=== PATIENT | male | born 1990 | race Caucasian/White ===

== ENCOUNTER 2017-01-21 08:45 | Day surgery (SDC) | payer OTHER ==
[2017-01-21] MEDS ORDERED: XYLOCAINE 1% ONE (09:45)
[2017-01-21] MEDS ORDERED: MARCAINE 0.25% PF/EPI 1:200,000 ONE (09:45)
[2017-01-21] MEDS ORDERED: LR 1,000 ML ONE (09:46)
[2017-01-21 11:35] VITALS: BP 99/68
--- NOTE | 2017-02-02 11:49 | OPERATIVE NOTE ---
PROCEDURE DATE: 01/21/2017 DIAGNOSIS: Cerebral palsy with recent infection. PROCEDURE PERFORMED: Left-sided Mccauley removal. DESCRIPTION OF PROCEDURE: The patient has brought to the operating room. After satisfactory IV sedation and hooking up his tracheostomy, his left chest was prepped and draped in the appropriate manner. The Mccauley was removed without difficulty and intact. He tolerated the procedure well. Sterile dressing was applied and he was awakened in the operating room.
== END 2017-01-21 11:45 | disposition home or self-care (01) ==
LOC: OR 08:45
PROVIDERS: ATTEND Surgery
DX: Z45.2 Encounter for adjustment and management of vascular access device (principal); G80.1 Spastic diplegic cerebral palsy; K21.9 Gastro-esophageal reflux disease without esophagitis
CPT/HCPCS: J7120

== ENCOUNTER 2017-03-19 18:00 | Observation (INO) ==
[2017-03-19 19:37] LABS: BILIRUBIN URINE NEGATIVE (NEGATIVE); BLOOD URINE 4+ (NEGATIVE); CLARITY MUCOUS (CLEAR); COLOR YELLOW; GLUCOSE URINE NEGATIVE (NEGATIVE); LEUKOCYTES URINE 2+ (NEGATIVE); NITRITE URINE NEGATIVE (NEGATIVE); PROTEIN URINE 2+(100 mg/dL) mg/dL (NEGATIVE); SP GRAVITY URINE 1.015; URINE CULTURE PL NEEDED? YES; URINE EPITHELIAL CELLS <10 /HPF (<10); URINE RBC TNTC /HPF (<10); URINE SOURCE CLEAN CATCH; URINE WBC TNTC /HPF (<10); UROBILINOGEN URINE NORMAL
[2017-03-19 19:40] LABS: MANUAL DIFF NEEDED? NO
[2017-03-19 19:43] LABS: BASO% 0.3 % (0.0-0.8); EOS# 0.04 X1000 (0.0-0.7); EOS% 0.2 % (0.0-10.0); HEMATOCRIT 44.3 % (42.0-52.0); HEMOGLOBIN 15.3 g/dL (14.0-18.0); IMM GRAN# 0.04 X1000 (0.0-0.04); IMM GRAN% 0.2 % (0.0-0.5); LYMPH# 1.62 X1000 (1.2-3.4); LYMPH% 8.3 % (20.5-51.1); MCH 30.4 PG (27-31); MCHC 34.5 g/dL (33-37); MCV 88.1 FL (81-99); MONO# 1.51 X1000 (0.11-0.59); MONO% 7.8 % (1.7-9.3); MPV 8.9 FL (7.4-10.4); NEUT% 83.2 % (42.2-75.2); PLT 263 X1000 (130-400); RBC 5.03 XMIL (4.7-6.1)
[2017-03-19] MEDS ORDERED: ZOSYN 4.5 GM/NS 4.5 GM/100 ML IVPB IV ONE (19:55)
[2017-03-19 20:00] LABS: AGAP 15; BUN 14 mg/dL (8-22); CALCIUM 9.2 mg/dL (8.8-10.2); CHLORIDE 101 mmol/L (98-107); COSMO 277; POTASSIUM 3.1 mmol/L (3.5-5.1); SODIUM 138 mmol/L (136-145); TCO2 22 mmol/L (25-35)
[2017-03-19] MEDS ORDERED: NS 1,000 ML IV ONE (20:03)
--- NOTE | 2017-03-20 02:22 | Diag Imaging Result Document ---
PROCEDURE NAME: CHEST-1 VIEW - 03/19/2017 PORTABLE CHEST: COMPARISON: 01/03/2015. FINDINGS: There is a tracheostomy tube which appears to be in satisfactory position. Heart size is normal. Inspiration is mildly shallow. The lungs appear clear. There is no pleural effusion or pneumothorax identified. There is gaseous bowel distention noted in the upper abdomen similar to the previous exam and possibly representing longstanding change. IMPRESSION: 1. Mildly shallow inspiration. No other evidence of acute cardiopulmonary disease. 2. There is gaseous bowel distention noted in the upper abdomen similar to the previous exam and possibly representing chronic change.
[2017-03-20] MEDS: ZOSYN 4.5 GM/NS 4.5 GM/100 ML IVPB IV SCH ×4 (02:33→22:03)
[2017-03-20] MEDS: TYLENOL PO PRN ×2 (03:49→13:02)
[2017-03-20 10:49] LABS: MANUAL DIFF NEEDED? NO
[2017-03-20 10:51] LABS: BASO% 0.3 % (0.0-0.8); EOS# 0.26 X1000 (0.0-0.7); EOS% 1.9 % (0.0-10.0); HEMATOCRIT 42.7 % (42.0-52.0); HEMOGLOBIN 14.2 g/dL (14.0-18.0); IMM GRAN# 0.01 X1000 (0.0-0.04); IMM GRAN% 0.1 % (0.0-0.5); LYMPH% 8.8 % (20.5-51.1); MCH 29.9 PG (27-31); MCHC 33.3 g/dL (33-37); MCV 89.9 FL (81-99); MONO# 1.16 X1000 (0.11-0.59); MONO% 8.5 % (1.7-9.3); MPV 8.6 FL (7.4-10.4); NEUT% 80.4 % (42.2-75.2); PLT 236 X1000 (130-400); RBC 4.75 XMIL (4.7-6.1)
[2017-03-20] MEDS: KLONOPIN PO SCH ×2 (11:05→22:04)
[2017-03-20] MEDS: LAMICTAL PO SCH ×2 (11:05→22:04)
[2017-03-20] MEDS: NEURONTIN PO SCH ×2 (11:05→22:04)
[2017-03-20] MEDS: MIRALAX PO SCH (11:05)
[2017-03-20] MEDS: ALLEGRA PO SCH (11:05)
[2017-03-20] MEDS: NS 1,000 ML IV SCH ×2 (11:06→22:05)
[2017-03-20 11:17] LABS: AGAP 13; BUN 13 mg/dL (8-22); CALCIUM 8.3 mg/dL (8.8-10.2); CHLORIDE 107 mmol/L (98-107); COSMO 281; POTASSIUM 4.1 mmol/L (3.5-5.1); SODIUM 141 mmol/L (136-145); TCO2 22 mmol/L (25-35)
[2017-03-20] MEDS: LIORESAL PO SCH ×3 (11:33→19:09)
--- NOTE | 2017-03-20 12:21 | HISTORY AND PHYSICAL ---
PRIMARY CARE PHYSICIAN: Dr. Pettit. CHIEF COMPLAINT: Fever. HISTORY OF PRESENTING ILLNESS: This is a 26-year-old male with a history of cerebral palsy, who has a suprapubic catheter and a trach, presents to [facility] ER. When he was found at home after returning home from school by the home health nurse to feel warm, she did an axillary temp and it was 102. Gave two ibuprofen and rechecked his axillary temp approximately 40 minutes later and stated his temp had actually gone up to 102.5. He then went to [facility] walk-in clinic, he was tested for strep and flu, and both were reported to be negative. He was advised by the walk-in clinic to come to the ER for blood work. When he arrived, his catheter bag was changed and his urine was noted to have a strong odor of sulfa. Workup showed a white blood cell count of 19.44, a potassium of 3.1. Urinalysis had negative nitrites, but 2+ white blood cells and 4+ bacteria. Urine culture is pending and he has been admitted for further evaluation and treatment. PAST MEDICAL HISTORY: Seizure disorder, spastic cerebral palsy, GERD and kidney stones. PAST SURGICAL HISTORY: Scoliosis, rods, a suprapubic cath, a trach, lithotripsy and fundoplication. FAMILY HISTORY: Noncontributory. SOCIAL HISTORY: He lives with family. No tobacco, alcohol or illicit drug use. ALLERGIES: Latex. HOME MEDICATIONS: He takes albuterol nebs q. 4 hours p.r.n., Baclofen 40 mg p.o. t.i.d., Klonopin 0.5 mg p.o. daily and 1 mg p.o. at bedtime, Jessie 180 mg p.o. b.i.d. , gabapentin 100 mg p.o. daily and 300 mg p.o. at bedtime, Lamictal 100 mg p.o. daily and 150 mg p.o. at bedtime, and MiraLAX 17 g p.o. daily. LABORATORY DATA: Showed a white blood cell count of 19.44, hemoglobin 15.3, hematocrit 44.3, platelets 263. Sodium 138, potassium 3.1, chloride 101, CO2 22, BUN of 14, creatinine 0.8, glucose 111. Urinalysis showed negative nitrites, 2+ white blood cells, 4+ bacteria. Blood cultures x2 are pending and a urine culture is pending. DIAGNOSTIC DATA: Chest x-ray showed shallow inspiration, but no other evidence of acute cardiopulmonary disease. There was some gaseous bowel distention noted in the upper abdomen similar to a previous exam and possibly representing chronic change. REVIEW OF SYSTEMS: Unable to obtain as patient is nonverbal. PHYSICAL EXAMINATION: VITAL SIGNS: On arrival, he had a temperature of 99.6 degrees, a pulse of 118, respirations 20, blood pressure 120/76, satting 100% on room air. GENERAL: This is a 26-year-old male, who is lying in the bed, unable to answer questions as he is nonverbal secondary to his cerebral palsy. Family at bedside to help answer questions and reviewed ER records also. HEENT: Normocephalic and atraumatic. Pupils are equal, round and reactive to light. The extraocular movements appear intact. Oropharynx and nares are clear. NECK: Supple. Patient has trach covered by gauze at this time. LUNGS: Clear to auscultation bilaterally with equal lung expansion and chest wall movement. HEART: With regular rate and rhythm. No murmurs, rubs, or gallops. ABDOMEN: Soft, nontender, nondistended. Bowel sounds are present x4 quadrants. EXTREMITIES: Patient has contractures to upper extremities and lower extremities. No clubbing, cyanosis, or edema. NEUROLOGICAL: Unable to assess due to patient's cerebral palsy at this time. ASSESSMENT: 1. Urinary tract infection. 2. Leukocytosis. 3. Hypokalemia. 4. Seizure disorder. 5. History of spastic cerebral palsy. PLAN: He was admitted to the medical unit at [place]. Neuro checks q. 4 hours for 24 hours. He was placed on Zosyn 4.5 g IV q. 6, normal saline at 100 mL an hour. We will continue his home medications as previously identified. Recheck a CBC and a BMP this a.m. It is noted that the patient's family (mom) if possible would like the patient to be discharged home later today on IV antibiotics if possible. We will discuss this with the attending as we do not have a culture back at this moment, and will recheck the white blood cell count. If it is improving , that could possibly be an option as patient has had multiple home IV antibiotic therapies in the past due to having UTIs related to his suprapubic catheter. Dictated by MOIRA Finch for Zander Murillo MD cc: MOIRA Patel MD pt examined, likely sepsis associated with uti; will continue to follow closely , will need to decide about Iv abx based on sensitivities and may need further imaging to rule out urolithiasis APENOT MTDD
[2017-03-20] MEDS ORDERED: LIORESAL PO SCH (13:00)
[2017-03-20] MEDS ORDERED: GENTAMICIN IV PER PHARMACY MISC SCH (14:15)
[2017-03-20] MEDS: GENTAMICIN IV SCH (15:24)
[2017-03-20] MEDS: NS IV SCH (15:24)
[2017-03-21] MEDS: ZOSYN 4.5 GM/NS 4.5 GM/100 ML IVPB IV SCH ×2 (02:54→08:45)
[2017-03-21 07:12] LABS: HEMATOCRIT 37.5 % (42.0-52.0); HEMOGLOBIN 12.5 g/dL (14.0-18.0); MCH 30.3 PG (27-31); MCHC 33.3 g/dL (33-37); MPV 8.9 FL (7.4-10.4); RBC 4.12 XMIL (4.7-6.1)
[2017-03-21 07:39] LABS: AGAP 10; BUN 11 mg/dL (8-22); CALCIUM 8.4 mg/dL (8.8-10.2); CHLORIDE 105 mmol/L (98-107); COSMO 270; MAGNESIUM 1.8 mg/dL (1.5-2.7); POTASSIUM 4.3 mmol/L (3.5-5.1); SODIUM 136 mmol/L (136-145); TCO2 21 mmol/L (25-35)
[2017-03-21] MEDS: MIRALAX PO SCH (08:44)
[2017-03-21] MEDS: KLONOPIN PO SCH ×2 (08:44→21:12)
[2017-03-21] MEDS: LAMICTAL PO SCH ×2 (08:45→21:11)
[2017-03-21] MEDS: LIORESAL PO SCH ×3 (08:45→17:38)
[2017-03-21] MEDS: ALLEGRA PO SCH (08:45)
[2017-03-21] MEDS: NEURONTIN PO SCH ×2 (08:45→21:11)
[2017-03-21] MEDS ORDERED: FLEET ENEMA PR ONE (14:20)
[2017-03-21] MEDS: ZOSYN 3.375 GM/NS 3.375 GM/50 ML IVPB IV SCH ×2 (14:53→21:11)
[2017-03-21] MEDS: NS IV SCH (15:29)
[2017-03-21] MEDS: GENTAMICIN IV SCH (15:29)
--- NOTE | 2017-03-21 16:20 | PROGRESS NOTE ---
DATE: 03/21/2017 SUBJECTIVE: Patient has no focal complaints. OBJECTIVE: Vital signs: Blood pressure 108/63, heart rate of 82, respiratory rate 18, temperature 98 degrees, 98% on room air. Cardiovascular: Regular rate and rhythm. Pulmonary: Bilateral breath sounds. Clear to auscultation. GI: Soft, nontender, nondistended. Bowel sounds are positive. LABORATORY DATA: White count down to 7, hemoglobin and hematocrit 12 and 37. Electrolytes are stable. Micro. He has got gram-negative rods in his urine culture. PROBLEMS: 1. Urinary tract infection, cystitis. He is on Zosyn day 3 and gentamicin day 2 awaiting culture results. 2. Seizure disorder. Appears to be controlled. DISPOSITION: Possibly home tomorrow pending culture results. He may need home IV therapy. We will evaluate for that. cc: Zander Murillo MD
[2017-03-22] MEDS: ZOSYN 3.375 GM/NS 3.375 GM/50 ML IVPB IV SCH ×2 (03:23→08:56)
[2017-03-22 06:04] LABS: MCH 29.9 PG (27-31); MCHC 33.3 g/dL (33-37); MCV 89.7 FL (81-99); MPV 8.8 FL (7.4-10.4); RBC 4.68 XMIL (4.7-6.1)
[2017-03-22 06:22] LABS: AGAP 13; BUN 9 mg/dL (8-22); CALCIUM 8.7 mg/dL (8.8-10.2); CHLORIDE 104 mmol/L (98-107); COSMO 275; POTASSIUM 4.1 mmol/L (3.5-5.1); SODIUM 139 mmol/L (136-145); TCO2 22 mmol/L (25-35)
[2017-03-22 07:57] VITALS: BP 129/91
[2017-03-22] MEDS: KLONOPIN PO SCH (08:55)
[2017-03-22] MEDS: NEURONTIN PO SCH (08:56)
[2017-03-22] MEDS: LAMICTAL PO SCH (08:56)
[2017-03-22] MEDS: ALLEGRA PO SCH (08:56)
[2017-03-22] MEDS: MIRALAX PO SCH (08:56)
[2017-03-22] MEDS: LIORESAL PO SCH ×2 (08:56→13:19)
--- NOTE | 2017-03-22 14:48 | DISCHARGE SUMMARY ---
ADMISSION DATE: 03/19/2017 DISCHARGE DATE: 03/22/2017 PHYSICIAN: Dr. Kushal Murillo. DATE OF ADMISSION: 03/19/2017. DATE OF DISCHARGE: 03/22/2017. DIAGNOSTICS: Chest x-ray 03/19/2017: Revealed: 1. Mildly shallow inspiration. 2. Trach tube appears to be in satisfactory position. 3. Heart size is normal. 4. Lungs appear clear. 5. No pleural effusion or pneumothorax identified. 6. Gaseous bowel distention noted in the upper abdomen, similar to the previous examination and possibly representing a longstanding changed. MICROBIOLOGY: Urine culture: Revealed Klebsiella. Blood cultures: Revealing no growth after 48 hours. DIAGNOSES: 1. Klebsiella urinary tract infection. 2. Leukocytosis. 3. Hypokalemia, resolved. 4. Seizure disorder. 5. History of spastic cerebral palsy. HOSPITAL COURSE: Mr. Ruiz presented to the emergency room with fever. He was found have a Klebsiella urinary tract infection, for which he was treated with Zosyn and gentamicin. Sensitivities reveals a susceptibility to Augmentin as well as Levaquin. We will hold off on giving Levaquin, as the patient does have a history of seizures. He did have a white count of 19 on admission. It is down to 6. He did have a potassium of 3.1. It was supplemented and he has been up, 4.1 to 4.3 since. We did continue his home medications. He has had no seizure activity. DISCHARGE ASSESSMENT: Vital signs: Blood pressure is 129/64 with a heart rate of 92, respirations are 18, temperature is 97.4 degrees oral with room air saturation of 95-98%. Cardiovascular: Regular rate and rhythm. S1 and S2 appreciated. Pulmonary: Breath sounds are clear with no increased work of breathing noted. Gastrointestinal: Abdomen is soft, nontender, nondistended with bowel sounds in all 4 quadrants. Suprapubic catheter is noted with no drainage and site clear. DISCHARGE MEDICATIONS: 1. Augmentin 875 1 p.o. b.i.d. for 10 days. 2. Gabapentin 100 mg daily. 3. Klonopin 1 mg at bedtime. 4. Klonopin 0.5 every morning. 5. Baclofen 40 mg p.o. t.i.d. 6. DuoNebs every 4 hours p.r.n. 7. Lamictal 150 at bedtime. 8. Gabapentin 300 p.o. at bedtime. 9. MiraLAX 17 g daily. 10. Lamictal 100 daily. FOLLOWUP CARE: He needs to follow up with Dr. Isaiah Scott in 2-3 weeks. I have instructed the mother to call and update Dr. Scott's staff on hospitalization, as well as culture results and antibiotics given. DISCHARGE DISPOSITION: He is being discharged home in stable condition with his mother. TIME SPENT: This is a greater than 30 minutes discharge. Dictated by MOIRA Burton for Zander Murillo MD cc: MOIRA Burton MD
== END 2017-03-22 14:05 | disposition home or self-care (01) ==
LOC: P.ED 18:00 → P.MEDSURG 18:01 → INTOOBSV 18:01
PROVIDERS: ATTEND Internal Medicine

== ENCOUNTER 2017-05-25 10:53 | Inpatient (IN) ==
[2017-05-25] MEDS ORDERED: NS 1,000 ML IV ONE (11:48)
[2017-05-25 12:42] LABS: MANUAL DIFF NEEDED? NO
[2017-05-25 12:44] LABS: BASO% 0.9 % (0.0-0.8); EOS# 0.17 X1000 (0.0-0.7); HEMATOCRIT 38.1 % (42.0-52.0); HEMOGLOBIN 12.8 g/dL (14.0-18.0); IMM GRAN# 0.02 X1000 (0.0-0.04); IMM GRAN% 0.4 % (0.0-0.5); LYMPH# 1.04 X1000 (1.2-3.4); LYMPH% 18.5 % (20.5-51.1); MCH 29.8 PG (27-31); MCHC 33.6 g/dL (33-37); MCV 88.8 FL (81-99); MONO# 0.86 X1000 (0.11-0.59); MONO% 15.3 % (1.7-9.3); MPV 9.3 FL (7.4-10.4); NEUT% 61.9 % (42.2-75.2); PLT 126 X1000 (130-400); RBC 4.29 XMIL (4.7-6.1)
[2017-05-25 13:04] LABS: AGAP 9; ALBUMIN 3.9 g/dL (3.5-5.0); ALKALINE PHOSPHATASE 54 U/L (32-122); BUN 24 mg/dL (8-22); CALCIUM 9.2 mg/dL (8.8-10.2); CHLORIDE 104 mmol/L (98-107); COSMO 282; GOT 38 U/L (10-34); GPT 11 U/L (10-44); POTASSIUM 4.4 mmol/L (3.5-5.1); SODIUM 140 mmol/L (136-145); TCO2 27 mmol/L (25-35); TOTAL BILIRUBIN 3.13 mg/dL (0.20-1.00); TOTAL PROTEIN 7.1 g/dL (6.3-8.3)
[2017-05-25 14:37] LABS: URINE SOURCE CATH
[2017-05-25 14:41] LABS: BILIRUBIN URINE NEGATIVE (NEGATIVE); BLOOD URINE LARGE (NEGATIVE); COLOR STRAW; GLUCOSE URINE NEGATIVE (NEGATIVE); LEUKOCYTES URINE LARGE (NEGATIVE); NITRITE URINE NEGATIVE (NEGATIVE); PROTEIN URINE TRACE mg/dL (NEGATIVE); SP GRAVITY URINE 1.009; TURBIDITY URINE HAZY (CLEAR); UROBILINOGEN URINE 2 mg/dL (NORMAL)
[2017-05-25 14:44] LABS: UR EPITHELIAL CELLS <10 /HPF (<10); URINE BACTERIA NEGATIVE /HPF; URINE CULTURE NEEDED? YES; URINE MICRO REVIEW NEEDED? YES; URINE RBC TNTC /HPF (<10)
[2017-05-25 14:57] LABS: URINE CASTS NONE SEEN; URINE CRYSTALS CA OXALATE PRESENT
--- NOTE | 2017-05-25 15:04 | Diag Imaging Result Doc PS360 ---
EXAM: CHEST-1 VIEW HISTORY: preadmit TECHNIQUE: Portable AP COMPARISON: 03/19/2017 FINDINGS: No change in the tracheostomy tube. Interval placement of a left-sided PICC line. Tip overlies the distal superior vena cava at the junction with the right atrium. Poor inspiratory effort. The heart is not enlarged. There are no infiltrates. No pleural effusions identified. IMPRESSION: No acute abnormality. Electronically signed by Emerson Means 05/25/2017 3:02 PM
--- NOTE | 2017-05-25 18:07 | Diag Imaging Result Doc PS360 ---
EXAM: US GB < RUQ (LIMITED) HISTORY: icterus TECHNIQUE: COMPARISON: None. FINDINGS: Suboptimal exam due to bowel gas. The pancreas, aorta, and inferior vena cava are obscured. The gallbladder is partly contracted. The wall is not thickened. No calcified stones. The common bile duct measures 4 mm. Mild increased renal echogenicity. There are several renal cysts. The largest measures 2.7 cm. There is a 1.0 cm stone. No ascites in the right upper quadrant. IMPRESSION: 1.Mild fatty infiltration of the liver 2.No gallstones or gallbladder wall thickening 3.Mild increased renal echotexture which can be seen with medical renal disease. There is also a renal stone and several renal cysts. Electronically signed by Emerson Means 05/25/2017 6:05 PM
--- NOTE | 2017-05-25 18:11 | PROVIDER DOCUMENTATION ---
This chart was entered by Naseem Leung Scribe, acting as scribe for Lory Kwok MD. HPI-Male Problem <Kasi Smith - Last Filed: 06/03/17 06:07> - General Source: family Unable to obtain history due to:: other (due to CP) - History of Present Illness-Male Quality of Pain: reports: none Severity in ED: reports: moderate Onset/Duration: reports: abrupt, 24 hours ago Timing: reports: still present, intermittent Context/Activities at Onset: reports: none Urinary Symptoms: reports: hematuria Associated Symptoms: reports: fever/chills. denies: diarrhea, vomiting Similar Symptoms Previously?: No Recently seen or treated by another doctor?: No <Lory Kwok - Last Filed: 06/04/17 10:28> - General Chief Complaint: UTI Symptoms Stated Complaint: BLOOD IN URINE Time Seen by Provider: 05/25/17 11:32 Allergies/Adverse Reactions: Patient Allergies Allergy/AdvReac Type Severity Reaction Status Date / Time latex AdvReac Mild RASH Verified 05/26/17 14:11 Home Medications: Home Medication List Medication Instructions Recorded Confirmed Last Taken Type Baclofen 40 mg PO TID 12/15/12 05/25/17 05/25/17 08:00 History Clonazepam [Klonopin] 0.5 mg PO DAILY 12/15/12 05/25/17 05/25/17 08:00 History Clonazepam [Klonopin] 1 mg PO HS 08/28/14 05/25/17 05/24/17 19:30 History Lamotrigine [Lamictal Odt] 100 tab PO DAILY 10/08/15 05/25/17 05/25/17 08:00 History Polyethylene Glycol 3350 [Miralax] 17 gm PO DAILY 10/08/15 05/25/17 01/20/17 History Lamotrigine [Lamictal Odt] 150 mg PO QHS 03/19/17 05/25/17 05/24/17 19:30 History Fexofenadine [Jessie] 60 mg PO DAILY 05/25/17 05/25/17 05/25/17 08:00 History Gabapentin [Neurontin] 100 mg PO QAM 05/25/17 05/25/17 05/25/17 08:00 History Gabapentin [Neurontin] 300 mg PO QHS 05/25/17 05/25/17 05/24/17 19:30 History Montelukast Sodium [Singulair] 10 mg PO DAILY 05/25/17 05/25/17 05/25/17 08:00 History Piperacillin/Tazobactam [Zosyn] 3.375 gm IV Q6H 05/25/17 05/25/17 05/25/17 08: 00 History Docusate Sodium [Colace] 100 mg PO BID 05/26/17 05/26/17 05/26/17 History - History of Present Illness-Male Nature of Presenting Problem: patient is a 26 y/o M that presents with hematuria x 24 hours. Mother reports seeing blood in leg bag. she called ( pt is under his care and currently taking Zoysn through PICC line). patient has been having fever intermitted. Patient has Cerbreal Palsy (Naseem Leung) patient is a 26 y/o M that presents with hematuria x 24 hours. Mother reports seeing blood in leg bag. she called ( pt is under his care and currently taking Zoysn through PICC line). patient has been having fever intermitted. Patient has Cerbreal Palsy (Lory Kwok) Review of Systems - Adult - REVIEW OF SYSTEMS - ADULT ROS:: ROS per family Constitutional: reports: fever. denies: chills Eyes: reports: no symptoms reported Ears, Nose, Mouth & Throat: reports: no symptoms reported Cardiovascular: reports: no symptoms reported Respiratory: denies: cough, shortness of breath Gastrointestinal: denies: diarrhea, vomiting Genitourinary: reports: hematuria. denies: frequency Musculoskeletal: reports: no symptoms reported Integumentary: denies: hives, itching, rash Neurological: reports: no symptoms reported Psychiatric: reports: no symptoms reported Endocrine: reports: no symptoms reported Hematologic/Lymphatic: reports: no symptoms reported Allergic/Immunologic: reports: no symptoms reported All Other Systems: Reviewed and Negative <Lory Kwok - Last Filed: 06/04/17 10:28> Past History - Adult - PAST MEDICAL HISTORY-ADULT Review of Records: reports: Old Records Reviewed, Nursing Assessment Review, Medications Reviewed Respiratory: reports: asthma Genitourinary: reports: kidney stones, chronic UTI's Neurological: reports: Seizures/Epilepsy, other (cerebral palsy) - PRIOR SURGERIES/PROCEDURES Surgical/Procedure History: reports: indwelling device (suprapubic cath, trach) , back/neck, other (lap dago) - IMMUNIZATION STATUS Childhood Immunizations: See Nurse Assessment Flu Vaccine: See Nurse Assessment - FAMILY HISTORY Family History: reviewed, not pertinent - SOCIAL HISTORY Smoking: non-smoker Living Situation: family <Lory Kwok - Last Filed: 06/04/17 10:28> Physical Exam-General - PHYSICAL EXAM-ADULT Exam Limited by: cerbreal palsy Initial Vital Signs Reviewed: Yes - CONSTITUTIONAL General Appearance: no apparent distress. negative: lethargic - EYES Eyes: PERRL/EOMI, scleral icterus - HEAD, EARS, NOSE, MOUTH & THROAT HENMT: normocephalic/atraumatic, moist mucous membranes, normal ENT inspection - NECK Neck: other (trach noted) - RESPIRATORY Respiratory: lungs clear, normal breath sounds, no respiratory distress, no accessory muscle use - CARDIOVASCULAR Cardiovascular: regular rate, rhythm, no edema - GASTROINTESTINAL (ABDOMEN) Abdominal Exam: normal bowel sounds, non tender, soft - MUSCULOSKELETAL Extremity: other (contractures noted( his normal)) - SKIN Integumentary: normal color, warm/dry - PSYCHIATRIC Psych/Mental Status: other (appropriate) <Lory Kwok - Last Filed: 06/04/17 10:28> Progress - PLAN OF CARE/RESULTS Result Diagrams: 05/30/17 05:16 05/30/17 05:16 <Kasi Smith - Last Filed: 06/03/17 06:07> - PLAN OF CARE/RESULTS Result Diagrams: 05/30/17 05:16 05/30/17 05:16 - XRAY 1 XRAY Study: Chest Impression: Normal XRAY Interpretation: nad - CONSULTS/PCP/HOSPITALIST Notification #1 *Consult/PCP/Hospitalist*: Time Discussed: 12:13 Reason/Comments: recommended admisson, keep with Zoysn Consult Disposition: other - CHANGE OF SHIFT REPORT (ED Provider) Report Given and Care Transferred to:: Time of Transfer: 18:00 Items Pending: Ultrasound Results <Lory Kwok - Last Filed: 06/04/17 10:28> - PLAN OF CARE/RESULTS Progress/Plan/Lab Results: Orders Category Date Time Status Admit - [facility] - [facility] Routine AdmDCTranf 05/25/17 21:47 Ordered Activity - Up with Assistance ORDERED Care 05/25/17 21:47 Active Apply Mechanical Device [QM] ORDERED Care 05/25/17 21:47 Active Intake and Output-Strict ORDERED Care 05/25/17 21:47 Active Misc. NRSG Communication Order DIRECTED Care 05/25/17 11:48 Completed Vital Signs Order Q 8-HR ASSESS Care 05/25/17 21:47 Hold Z-Document. for Tele Applied ORDERED Care 05/25/17 21:47 Completed Regular Diet Diet 05/25/17 19:16 Completed CHEST-1 VIEW [RAD] Stat Exams 05/25/17 14:09 Completed US GB < RUQ (LIMITED) [US] Stat Exams 05/25/17 15:05 Completed BLOOD CULTURE [BLDCUL] Stat Lab 05/25/17 12:30 Completed CBC WITH DIFF [HEME] Stat Lab 05/25/17 12:30 Completed CK TOTAL [CHEM] Stat Lab 05/25/17 12:30 Completed COMPREHENSIVE METABOLIC PANEL [CHEM] Stat Lab 05/25/17 12:30 Completed URINALYSIS W/POSS RFLX CULT [URINALYSIS] Stat Lab 05/25/17 14:30 Completed URINE CULTURE [RM] Routine Lab 05/25/17 14:58 Completed URINE MANUAL MICROSCOPIC [URINALYSIS] Stat Lab 05/25/17 14:30 Completed 0.9% Sodium Chloride Inj [Ns] 1,000 ml Med 05/25/17 21:47 Discontinued IV 125 mls/hr 0.9% Sodium Chloride Inj [Ns] 1,000 ml Med 05/25/17 11:48 Discontinued IV 999 mls/hr Acetaminophen [Tylenol] Med 05/25/17 21:47 Discontinued 650 mg PO Q6H PRN PRN Albuterol [Albuterol Neb] Med 05/25/17 21:47 Discontinued 2.5 mg INH Q4H PRN PRN Baclofen [Lioresal] Med 05/26/17 09:00 Discontinued 40 mg PO TID Clonazepam [Klonopin] Med 05/26/17 09:00 Discontinued 0.5 mg PO DAILY Fexofenadine [Jessie] Med 05/26/17 09:00 Discontinued 60 mg PO DAILY Gabapentin [Neurontin] Med 05/26/17 09:00 Discontinued 100 mg PO QAM Gabapentin [Neurontin] Med 05/25/17 21:47 Discontinued 300 mg PO QHS Montelukast [Singulair] Med 05/26/17 09:00 Discontinued 10 mg PO DAILY Polyethylene Glycol 3350 [Miralax] Med 05/26/17 09:00 Discontinued 17 gm PO DAILY Telemetry [OM.EQ] Routine Oth 05/25/17 21:47 Active Physical Therapy Eval/Treatment [OM.PT] Routine Ther 05/25/17 21:47 Active Transfer/Admit Order [TRANSFER] Routine Transfer 05/25/17 19:12 Completed 1152-Dr.Harris montes, 1505- reviewed labs, U/S ordered. Mother updated plan of care (Naseem Leung) 1152-Dr.Harris montes, 1505- reviewed labs, U/S ordered. Mother updated plan of care ( Lory Kwok) Departure - Departure Date of Disposition Decision: 05/25/17 Time of Disposition Decision: 19:19 Certified Medical Emergency: Emergent - Critical Care Note This patient required my direct & personal management of CC.: No <Kasi Smith - Last Filed: 06/03/17 06:07> - Departure Date of Disposition Decision: 05/25/17 Time of Disposition Decision: 19:18 Certified Medical Emergency: Emergent - Critical Care Note This patient required my direct & personal management of CC.: No <Lory Kwok - Last Filed: 06/04/17 10:28> - Departure DIAGNOSIS: Septicemia Disposition: ADMITTED INPATIENT 09 Condition: Fair This chart was documented by the indicated scribe, (Naseem Leung, Scribe) and accurately reflects the services I performed and decisions made by me, Lory Kwok MD, as attested by the provider's signature.
--- NOTE | 2017-05-25 19:53 | HISTORY AND PHYSICAL ---
HISTORY OF PRESENT ILLNESS: This is a 26-year-old male who has a history of cerebral palsy and has a suprapubic catheter and a trach who presented to [facility] ER after his urine looked like it was bloody and it seemed like he had a little more trouble with his urine. The family said that he really did not look really physically sick and his energy and appetite seemed to be good. I think they are more concerned about the urine. We found the bilirubin was a little high. They have been treating him for chronic urinary tract infection under Dr. Bush' direction. He was last admitted here on 03/19/[address] Bush has been on the case. PAST MEDICAL HISTORY: Seizure disorder. Spastic cerebral palsy. Gastroesophageal reflux disease. Kidney stones. PAST SURGICAL HISTORY: Scoliosis. Rods. Suprapubic catheter. A trach. Lithotripsy. Fundoplication. FAMILY HISTORY: Noncontributory. SOCIAL HISTORY: Lives with family. Very attentive family. No tobacco, alcohol or illicit drugs. ALLERGIES: Latex. HOME MEDICATION: Albuterol nebulized treatment 2.5 q.4 hours, baclofen 40 mg p.o. t.i.d., Klonopin 0.5 mg daily, clonazepam 1 mg at bedtime, Jessie 60 mg a day, Neurontin 100 mg in the morning and 300 mg at night, Lamictal 150 mg in the morning and p.o. at bedtime, Singulair 10 mg a day. He is on Zosyn 3.375 mg IV q.6 hours. MiraLAX 17 g p.o. daily. PHYSICAL EXAMINATION: GENERAL: Today awake and alert. He is smiling, understands questions. He is eating right now. VITAL SIGNS: Temp 97.9 degrees, pulse 92, respirations 16, blood pressure 113/67, O2 saturation 96%. HEENT: Pupils are equal and round. CVP less than 6 cm. LUNGS: Clear in all lung gates. CARDIOVASCULAR: Regular rhythm and rate without murmur or S3. ABDOMEN: Soft, nontender, nondistended. SKIN: Warm and dry. Weight 95 pounds. Suprapubic catheter, tracheostomy noted. LABORATORY: White count 5610, hematocrit 38, platelet count 126,000. Sodium 140, potassium 4.4, chloride 104, bicarb 27, BUN 24, creatinine 1.1. Blood sugar 81, liver functions unremarkable. AST was a little high at 38 and bilirubin 3.13. Urinalysis: Zjc-[id number]-gr-count red blood cells, 10-20 white blood cells, some calcium oxalate crystals noted. Blood cultures obtained. IMAGING: Abdominal ultrasound was unremarkable. Mild fatty infiltration of liver. Mild increased renal echotexture seen with medical renal disease. Also renal stone and several renal cysts. Chest x-ray, no acute abnormality. ASSESSMENT AND PLAN: 1. He appeared to have some gross hematuria. I do not know that anything is changed, but I will continue the Zosyn. I am going to give him some fluids. He may be just a little bit dehydrated. He had urine before they grew out Pseudomonas aeruginosa and Klebsiella pneumonia. Also in the past he has had yeast and enterococcus. So we will see what the cultures show. See what Dr. uBsh would like to do. I will hydrate him a little bit tonight. 2. Spastic cerebral palsy. Continue his present medications and muscle relaxants. 3. History of kidney stones, aware. 4. History of seizure disorder, aware. Continue present medications. 5. History of gastroesophageal reflux. 6. He has a tracheostomy. Note his lab is pretty unremarkable. We will give him fluids, running normal saline at 125 mL an hour, which I think he will be able to sustain with creatinine 1.1. cc: Yoshi Alvares MD
[2017-05-25] MEDS ORDERED: PIPERACILLIN IV SCH (21:47)
[2017-05-25] MEDS ORDERED: LAMOTRIGINE 150 MG PO SCH (21:47)
[2017-05-25] MEDS ORDERED: CLONAZEPAM 1 MG PO SCH (21:47)
[2017-05-25] MEDS ORDERED: TAZOBACTAM IV SCH (21:47)
[2017-05-25] MEDS: NS 1,000 ML IV SCH (22:31)
[2017-05-25] MEDS: ZOSYN 3.375 GM/NS 3.375 GM/50 ML IVPB IV SCH (22:35)
[2017-05-25] MEDS: NEURONTIN PO SCH (22:35)
[2017-05-26] MEDS: ZOSYN 3.375 GM/NS 3.375 GM/50 ML IVPB IV SCH ×4 (04:19→22:55)
[2017-05-26] MEDS: NS 1,000 ML IV SCH ×5 (06:38→22:55)
[2017-05-26] MEDS: ALBUTEROL NEB INH PRN ×3 (07:42→15:52)
--- NOTE | 2017-05-26 08:00 | CONSULTATION ---
DATE OF CONSULTATION: 05/26/2017 CONCLUSION: The patient is admitted to the hospital with hematuria. He has been receiving treatment with Zosyn for a Pseudomonas urinary tract infection. His urinanalysis show yeast. RECOMMENDATIONS: I agree with continuing Zosyn. I have put in a consult for Dr. Scott to see the patient regarding his hematuria. Also, I discussed with the patient's mother IV access and since the patient frequently needs IV access, we both think it would be best to put in a Port-A- Cath. I have placed a consult for Dr. Shrestha to place the Port-A-Cath. I started micafungin for the funguria in case it is causing hematuria. DISCUSSION: The patient had a Pseudomonas infection. He was receiving Zosyn at home. He, in the past 3 days, has had continuous, fairly severe hematuria. He has not been having a fever and he does not seem to be in any acute distress. LABORATORY STUDIES: Thus far, CBC shows a white count of 5610, hemoglobin 12.8 , and platelet count of 126,000. His creatinine is 1.1. The GFR is greater than 60. Urine culture and 2 blood cultures are pending. Urinalysis showed white cells and red cells but no bacteria. Yeast was seen in the urine. Abdominal ultrasound showed a fatty liver, renal medical disease, a renal stone that was not blocking anything, and renal cysts. The patient's chest x- ray is clear. PAST MEDICAL HISTORY/REVIEW OF SYSTEMS: The patient has severe cerebral palsy. He is bedridden. I think he can get up in a wheelchair but he has extreme spasticity. He cannot walk. He cannot care for himself at all. He is able to eat. Past medical history is positive for seizure disorder, spastic cerebral palsy, gastroesophageal reflux disease, renal stones , and bronchiectasis. PAST SURGICAL HISTORY: Positive for scoliosis for which the patient had rods placed, a suprapubic catheter, a tracheostomy, lithotripsy, Mccauley catheter which has been removed, and a baclofen pump. Because of infection, the rods and the baclofen pump were removed. FAMILY HISTORY: Positive for hypertension, myocardial infarction, and cancer. SOCIAL HISTORY: The patient lives with his family. They take total care of him. He does not smoke cigarettes, drink alcoholic beverages, or use illicit drugs. There is a dog as a pet. ALLERGIES: The patient is allergic to latex. HOME MEDICATIONS: Include albuterol inhaler, baclofen, Klonopin, clonazepam, Jessie, Neurontin, Lamictal, Singulair, and MiraLAX. PHYSICAL EXAMINATION: Vital Signs: Temperature is 98.7 degrees, pulse 86, respirations 16, blood pressure 121/71. The patient's weight is 95 pounds. Generally: This is a thin , young male who is in no acute distress. Head, Eyes, Ears, Nose, and Throat: No drainage noted from the nose or ears. As mentioned above, the patient can eat on his own. Neck: Patient has a tracheostomy in place. Thorax: No increased AP diameter to the chest. Lungs: Scattered rhonchi bilaterally. Cardiovascular: Heart rate is regular. Abdomen: Soft and nontender. The patient has a suprapubic catheter in place. Neurologic: He is awake. He has contractures. I did not see him move his extremities. There is no tremor. Integument: No rash noted. Thank you for the consult. cc: Shilo Bush MD [facility]
[2017-05-26] MEDS: ALLEGRA PO SCH (08:20)
[2017-05-26] MEDS: LAMICTAL PO SCH ×3 (08:21→22:54)
[2017-05-26] MEDS: SINGULAIR PO SCH (08:21)
[2017-05-26] MEDS: NEURONTIN PO SCH ×3 (08:21→22:55)
[2017-05-26] MEDS: KLONOPIN PO SCH ×3 (08:21→22:54)
[2017-05-26] MEDS: MIRALAX PO SCH (08:22)
[2017-05-26] MEDS: LIORESAL PO SCH ×4 (08:22→17:46)
--- NOTE | 2017-05-26 08:46 | PROGRESS NOTE ---
DATE: 05/26/2017 SUBJECTIVE: Mr. Ruiz admitted yesterday. He had a pretty good night, but he did have start and blood in the suprapubic catheter bag again. OBJECTIVE: Temperature 97.8, pulse 96, respirations 14, blood pressure 134/86. Urine output was 2400 mL. LAB: Reviewed from the 4th, yesterday unremarkable. Hematocrit 38, hemoglobin 12. ASSESSMENT AND PLAN: 1. The patient admitted to the hospital with hematuria and he is presently on Zosyn for Pseudomonas urinary tract infection. Urinalysis did show yeast, so I am going to add Micafungin. Also gross hematuria again, so we are going to ask Dr. Scott to look. He does have a history of nephrolithiasis. 2. Gross hematuria. Dr. Scott to follow. 3. Spastic cerebral palsy. Continue present medication. 4. Tracheostomy tube. 5. Nutrition. Seems to be doing well. I do not see any change in orders at this time. cc: Yoshi Alvares MD
[2017-05-26] MEDS ORDERED: LAMOTRIGINE PO SCH (09:00)
--- NOTE | 2017-05-26 11:34 | Diag Imaging Result Doc PS360 ---
RENAL STONE SEARCH - 05/26/2017 INDICATION: gross hematuria, history of bladder stones TECHNIQUE: A CT dose reduction protocol was used. COMPARISON: 12/24/2016 FINDINGS: There is some tree-in-bud nodular infiltrates in the lung bases right greater than left similar to prior. Stable extremely severe scoliosis and malpositioning of the body. Stable right renal cyst. Stable bilateral renal stones mostly in the calyces, but also a small one in the right renal pelvis. No significant hydronephrosis. Stable supra pubic catheter in good position. There are numerous stones in the urinary bladder. These are all much smaller than on the prior exam. The largest measures up to about 1.1 cm. There is constipation with severe rectal stool impaction similar to prior. There is a rectal stool ball measuring about 8.2 cm in diameter. Stable orthopedic plate at the right proximal femur. No acute bony lesions. IMPRESSION: 1. Numerous small stones in the urinary bladder, somewhat smaller than on the prior exam. 2. Grossly stable bilateral nephrolithiasis. 3. Severe constipation with rectal stool impaction. 4. Tree-in-bud nodular infiltrate in the lung bases similar to prior. Suggestive of an endobronchially spread inflammatory process such as chronic aspiration. Electronically signed by Vladimir Frias 05/26/2017 11:32 AM
[2017-05-26] MEDS: MYCAMINE 100 MG in NS 100 ML IV SCH (12:04)
--- NOTE | 2017-05-26 22:45 | CONSULTATION ---
DATE OF CONSULTATION: 05/26/2017 CONSULTING PHYSICIAN: Yoshi Alvares MD REASON FOR CONSULTATION: Gross hematuria. HISTORY OF PRESENT ILLNESS: A 26-year-old male who has cerebral palsy, chronic dehydration, recurrent urolithiasis as well as bladder stones, neurogenic bladder managed with a suprapubic tube. He has had several extracorporeal shockwave lithotripsies as well as cystolitholapaxy in the past. He presented with gross hematuria. During workup, abdominal ultrasound was done revealing stable left 1 cm renal stone. Per his test engineering technician, there are no documented fevers, chills, sweats. PAST MEDICAL HISTORY: Cerebral palsy, GERD, urolithiasis, bladder stones, neurogenic bladder, seizures. PAST SURGICAL HISTORY: Scoliosis correction. Cystoscopy with suprapubic tube. Tracheostomy. ESWL. Jenna fundoplication. Cystolitholapaxy. ALLERGIES: Latex. SOCIAL HISTORY: Resides with his family. No tobacco, alcohol or drugs. FAMILY HISTORY: No malignancies. HOME MEDICATIONS: Baclofen, albuterol, Klonopin, Jessie, Neurontin, Lamictal, Singulair, MiraLAX, currently he is on Zosyn. REVIEW OF SYSTEMS: Unobtainable secondary to patient's mental status. PHYSICAL EXAMINATION: Vital signs: Temperature 97.9, pulse 96, blood pressure 134/86. General: No acute distress. Fairly cachectic-appearing male. HEENT: Tracheostomy tube present. Cardiovascular: Regular rhythm. Pulmonary: Decreased bilateral breath sounds. Abdomen: Scaphoid, nontender to palpation. : Suprapubic tube in place, draining fairly clear urine at time of physical examination. Lymphatic: No groin lymphadenopathy. Dermatologic: No obvious skin rashes. PERTINENT LABORATORY DATA: White cell count of 6000, hematocrit 38. Creatinine 1.1. Urinalysis positive for white, red blood cells and calcium oxalate crystals as well as yeast-type cells. PERTINENT IMAGES: Abdominal ultrasound per HPI. ASSESSMENT: A a 26-year-old male with neurogenic bladder secondary to cerebral palsy, managed per suprapubic tube. He has had recurrent urolithiasis as well as bladder stones. I have discussed with the family that it would be prudent to obtain CT abdomen and pelvis, renal stone search with decreased radiation exposure. He had CT scan in December 2016. I suspect he has bladder stones. His left renal stone appears to be stable from previous imaging. CT of the pelvis renal stone search was obtained and revealed suspected multiple bladder stones which are likely the cause of hematuria and calcium oxalate crystals as well as could contribute to the urinary tract infections. I have discussed with the patient's mother cystoscopy with cystolitholapaxy with risks including, but not limited to, bleeding, infection, injury to the bladder, injury to adjacent structures, inability to remove all stones and need for additional interventions explained. She voiced understanding and the family wants to proceed. PLAN: To the operating room tomorrow for cystoscopy with laser cystolitholapaxy. cc: Isaiah Scott MD
[2017-05-27] MEDS: ZOSYN 3.375 GM/NS 3.375 GM/50 ML IVPB IV SCH ×4 (04:00→23:16)
[2017-05-27] MEDS: NS 1,000 ML IV SCH ×2 (06:11→17:32)
[2017-05-27] MEDS: ALBUTEROL NEB INH PRN ×4 (07:28→22:57)
--- NOTE | 2017-05-27 08:21 | PROGRESS NOTE ---
DATE: 05/27/2017 PRESENT ILLNESS: The patient was admitted to the hospital because of hematuria. On CT scan, he was found to have many stones in his bladder. Patient also currently is being treated for a Pseudomonas urinary tract infection and, also, in his urinalysis yeast was seen, so he also is receiving treatment for possible fungal urinary tract infection. MEDICATIONS: The patient is on micafungin and Zosyn. PHYSICAL EXAMINATION: Vital Signs: Temperature is 97.6 degrees, pulse 102, respirations 14, blood pressure 112/60. Generally, this is a young male who has severe cerebral palsy. Lungs clear to auscultation. Cardiovascular: Heart rate is regular. Abdomen is soft and not tender. Eyes: Patient has scleral icterus. LABORATORY DATA AND X-RAY: The patient's CT scan of the abdomen shows that the patient has bladder stones. Also, there was a bibasilar inflammation which the radiologist thought could be secondary to aspiration. The patient's blood cultures are negative. Urine culture is still pending. The patient's bilirubin is elevated at 3. ASSESSMENT AND PLAN: As regarding the patient's urinary tract infection, I plan to continue Zosyn and micafungin pending culture results. As regarding the patient's bladder stones, Dr. Scott saw the patient yesterday and will be operating on the patient today to get rid of the bladder stones. As regarding the patient's elevated bilirubin and previous finding of a fatty liver, I put in a consult for Dr. Moon Escalona. I discussed with the mother that the findings of the bibasilar infiltrates may be secondary to aspiration and we may want to repeat his swallow study which was done 1-2 or 3 years ago to see if he is aspirating. Also, it was noted on his CT scan that he has severe constipation. The patient's mother talked about giving enemas now, and we discussed it and we think it would be better to wait a day or 2 because today he is scheduled to have cystoscopy and removal of the stones and also have insertion of a Port-A-Cath. Patient's comorbidities are that he has severe cerebral palsy, and he has extreme spasticity. He is pretty much limited to his bed. I think at times he can get up in a wheelchair, but his family has to do all of his care. He cannot do any of it himself. cc: Shilo Bush MD
[2017-05-27] MEDS ORDERED: DIPRIVAN 1% ONE (08:22)
[2017-05-27] MEDS ORDERED: FENTANYL ONE (08:23)
--- NOTE | 2017-05-27 08:24 | PROGRESS NOTE ---
DATE: 05/27/2017 SUBJECTIVE: Bertin had a decent night per his family. They state he is ready to proceed with surgery. OBJECTIVE: T 98.2 degrees, P 120, BP 193/93. General: No acute distress. : Suprapubic tube in place draining straw-colored urine. PERTINENT LABORATORY DATA: None today. ASSESSMENT: A 26-year-old male with gross hematuria, neurogenic bladder, multiple bladder stones. I re-visited with the family risks of cystolitholapaxy including but not limited to, bleeding, infection, injury to the bladder, injury to adjacent structures, inability to remove all the stones and need for additional interventions. They voiced understanding and wanted to proceed. PLAN: To OR this morning for cystolitholapaxy with Holmium laser. cc: Isaiah Scott MD
[2017-05-27] MEDS ORDERED: QUELICIN (DOSE) ONE ×2 (08:26)
[2017-05-27] MEDS ORDERED: HEPARIN ONE (08:33)
[2017-05-27] MEDS ORDERED: NS 250 ML ONE (08:33)
[2017-05-27] MEDS ORDERED: XYLOCAINE 1%/EPI 1:100,000 ONE (08:33)
[2017-05-27] MEDS ORDERED: VERSED ONE (08:56)
[2017-05-27] MEDS ORDERED: NEO-SYNEPHRINE ONE (09:47)
[2017-05-27] MEDS ORDERED: SENSORCAINE 0.5%-EPI 1:200,000 ONE (09:53)
[2017-05-27] MEDS: LIORESAL PO SCH ×3 (10:37→17:32)
--- NOTE | 2017-05-27 10:40 | Diag Imaging Result Doc PS360 ---
CHEST-PORTABLE - 05/27/2017 INDICATION: right port insertion TECHNIQUE: COMPARISON: 05/25/2017 FINDINGS: There is a new right chest port in good position with the catheter tip in the right atrium. Stable left PICC line and tracheostomy tube. Stable low lung volumes. No focal infiltrates, pneumothorax, or pleural effusion. Heart size is normal. IMPRESSION: No complication. Electronically signed by Vladimir Frias 05/27/2017 10:37 AM
--- NOTE | 2017-05-27 10:51 | OPERATIVE NOTE ---
PROCEDURE DATE: 05/27/2017 PREOPERATIVE DIAGNOSIS: 1. Cerebral palsy. 2. Chronic urinary tract infections with hematuria. PROCEDURE: Right subclavian PowerPort. DESCRIPTION OF PROCEDURE: On completion of cystoscopy by Dr. Scott, the patient was repositioned. He was placed in the Trendelenburg position. His right chest wall and neck were prepped and draped in the appropriate manner. The tracheostomy was draped away. In the midclavicular line, 1 fingerbreadth below the clavicle, an area was infiltrated with a combination of Marcaine and Xylocaine with epinephrine. A transverse incision was made down to the clavipectoral fascia. Through the base of this incision, a subcutaneous pocket was developed inferiorly. Likewise, through the base of this incision, the subclavian vein was cannulated. A guidewire was introduced into the right atrial area of the heart. A dilator was used and a system trimmed to 19 cm was threaded down to the superior vena cava right atrial junction. It was flushed with heparinized saline. The reservoir was placed in the pocket and anchored with 3-0 silk. The subcutaneous was closed with 3-0 Vicryl. The skin was closed with 4-0 Vicryl subcuticular. It will fluoroscopy revealed no evidence of pneumothorax and good position of the catheter. The patient was subsequently awakened in the operating room and transferred to recovery. ESTIMATED BLOOD LOSS: Less than 10 mL. cc: Joseluis Shrestha MD
--- NOTE | 2017-05-27 11:33 | OPERATIVE NOTE ---
PROCEDURE DATE: 05/27/2017 SURGEON: Isaiah Scott MD. PREOPERATIVE DIAGNOSES: 1. Gross hematuria. 2. Neurogenic bladder. 3. Bladder stones. PRIMARY PROCEDURE: Cystoscopy with holmium laser cystolitholapaxy of multiple bladder stones. INDICATIONS: This is a 26-year-old male with cerebral palsy whose bladder is managed with a suprapubic tube. He developed gross hematuria and presented to the hospital. CT renal stone search was eventually obtained and revealed multiple bladder stones with the largest being approximately 1.[address] scan. FINDINGS: Approximately a dozen of stones ranging from 5-6 mm to 1.5 cm in size. Adequate litholapaxy of all stones. Adequate hemostasis at the conclusion of the case. DESCRIPTION OF PROCEDURE: After obtaining informed consent, patient was brought to the operative room. Perioperative antibiotics and endotracheal anesthesia via tracheostomy tube was administered. He was placed in the lithotomy position with his upper and lower extremities appropriately padded. We then introduced a 21-St Lucian rigid cystoscope via his urethra and I was able to advance it all the way to his bladder. There was no evidence of mucosal lesions, with exception of mild irritation at the site of the suprapubic tube insertion at the dome. There were multiple aforementioned bladder stones. There were several moderate trabeculations and small diverticula. I then swapped for a 23-St Lucian cystoscope and used 900 micron Holmium laser fiber with energy settings of 1.5 joules and 10 hertz to break the stones up into multiple small fragments. A Lemuel syringe was then used to evacuate those bladder stone fragments and repeat cystoscopy revealed no evidence of remaining stones. There was no evidence of active bleeding. His bladder was emptied, cystoscope was removed, and the suprapubic tube was placed to gravity drainage as it was clamped during the procedure partially. He was then turned over to Dr. Shrestha for his part of the operation. Please see the respective note. ESTIMATED BLOOD LOSS: On my part was 1 mL. COMPLICATIONS: None on my part. DISPOSITION: He was turned over Dr. Shrestha' care. He will eventually go to PACU and then back to the room with suprapubic tube to gravity drainage. cc: Isaiah Scott MD
[2017-05-27] MEDS: MIRALAX PO SCH (12:25)
[2017-05-27] MEDS: NEURONTIN PO SCH ×2 (12:26→20:04)
[2017-05-27] MEDS: SINGULAIR PO SCH (12:26)
[2017-05-27] MEDS: ALLEGRA PO SCH (12:26)
[2017-05-27] MEDS: LAMICTAL PO SCH ×2 (12:26→20:04)
[2017-05-27] MEDS: MYCAMINE 100 MG in NS 100 ML IV SCH (12:32)
[2017-05-27] MEDS ORDERED: ZOFRAN IV PRN (13:19)
[2017-05-27] MEDS: TYLENOL PO PRN (13:20)
[2017-05-27] MEDS: KLONOPIN PO SCH ×2 (13:20→20:04)
[2017-05-27] MEDS: ULTRAM PO PRN (14:14)
[2017-05-27] MEDS ORDERED: DULCOLAX PR ONE (16:30)
[2017-05-27 18:16] LABS: INR 1.01; PROTIME 10.6 Seconds (9.2-11.7)
[2017-05-27] MEDS: COUMADIN PO SCH (20:04)
[2017-05-27] MEDS: PERIDEX MT SCH (20:04)
--- NOTE | 2017-05-27 20:05 | PROGRESS NOTE ---
DATE: 05/27/2017 SUBJECTIVE: 1. This is a 26-year-old and was seen by Dr. Scott and did a retrograde cystoscopy I believe with holmium laser cystolitholapaxy of multiple bladder stones. This was for gross hematuria and neurogenic bladder, bladder stones, gross hematuria. 2. They replaced a right subclavian PowerPort and I think they place that this morning per Dr. Shrestha for IV access. Chest x-ray done on 05/27 and no new pathology. No complication from the IV access. 3. Cerebral palsy, aware. He has a tracheostomy. He is eating fairly well. He has had a little more muscle spasm and they would like something for pain, so we are going to try some Ultram and see how he did with that. Note his renal CT done 05/26/2017, numerous small stones in the urinary bladder, somewhat smaller than on the prior examination. Grossly stable bilateral nephrolithiasis. Severe constipation. Rectal stool impaction. Tree-in-bud nodular infiltrate in lung base similar to prior suggestive of endobronchial spread of inflammatory process, such as chronic aspiration. cc: Yoshi Alvares MD
[2017-05-27] MEDS: FLEET ENEMA PR SCH (21:35)
[2017-05-28] MEDS: ZOSYN 3.375 GM/NS 3.375 GM/50 ML IVPB IV SCH ×3 (04:32→23:59)
[2017-05-28] MEDS: NS 1,000 ML IV SCH ×5 (04:32→23:57)
[2017-05-28 06:11] LABS: MANUAL DIFF NEEDED? NO
[2017-05-28 06:17] LABS: BASO% 0.4 % (0.0-0.8); EOS# 0.16 X1000 (0.0-0.7); EOS% 2.2 % (0.0-10.0); HEMATOCRIT 27.3 % (42.0-52.0); LYMPH# 0.95 X1000 (1.2-3.4); LYMPH% 13.2 % (20.5-51.1); MCH 29.9 PG (27-31); MCV 90.7 FL (81-99); MONO# 0.49 X1000 (0.11-0.59); MONO% 6.8 % (1.7-9.3); MPV 9.6 FL (7.4-10.4); NEUT% 77.4 % (42.2-75.2); PLT 142 X1000 (130-400); RBC 3.01 XMIL (4.7-6.1)
[2017-05-28 06:45] LABS: AGAP 12; BUN 12 mg/dL (8-22); CALCIUM 8.3 mg/dL (8.8-10.2); CHLORIDE 108 mmol/L (98-107); COSMO 286; SODIUM 144 mmol/L (136-145); TCO2 24 mmol/L (25-35)
[2017-05-28] MEDS: ULTRAM PO PRN (06:57)
[2017-05-28] MEDS: TYLENOL PO PRN (08:02)
[2017-05-28] MEDS: KLONOPIN PO SCH ×2 (08:02→20:33)
[2017-05-28] MEDS: LAMICTAL PO SCH ×2 (08:02→21:01)
[2017-05-28] MEDS ORDERED: VANCOMYCIN IV PER PHARMACY MISC SCH (09:45)
--- NOTE | 2017-05-28 10:32 | PROGRESS NOTE ---
DATE: 05/28/2017 SUBJECTIVE: He is less responsive and febrile. Apparently spiked a temperature to 102. It is 100.4 at the present time. He does feel warm to touch. He had a little more rapid respiration. No focal points of tenderness observed. OBJECTIVE: Vital Signs Temp 100.4 degrees at present, pulse 127, respirations 20, blood pressure 133/72. Lungs: Clear in all lung gates. Cardiovascular: Regular rhythm and rate without murmur or S3. Abdomen: Soft. Skin: Warm and dry. Urine output 6.7 L. LAB: White count 7180, hematocrit 27, platelet count a 142,000. So, hematocrit has dropped quite a bit. Chemistry: Sodium 144, potassium 4.0, chloride 108, bicarb 24, BUN 12, creatinine 0.9, albumin was 3.9. ASSESSMENT AND PLAN: 1. Gross hematuria. He had retrograde cystoscopy and removed multiple stones from the bladder. Has a chronic urinary tract infection and more fever, so Dr. Bush is going to expand the antibiotic coverage. 2. Right subclavian PowerPort was placed to help with access. 3. Cerebral palsy with tracheostomy. We are going to do a swallow study and look if there is evidence of aspiration. He had a chest x-ray done yesterday, which was no focal infiltrates. 4. Review of orders. He is on Coumadin 1 mg p.o. at bedtime. He is on MiraLAX 17 g daily. We tried some Ultram yesterday and it did seem to help a little bit. Singulair 10 mg a day. Sodium phosphorus, he gets 133 mL p.r.n. micafungin 100 mg IV q.24 hours. Lamictal 150 mg p.o. at bedtime and 100 mg in the morning. Neurontin 100 mg q.a.m., 300 mg at bedtime. Jessie 60 mg a day. Klonopin 1 mg at bedtime and Klonopin 0.5 mg daily. Baclofen 40 mg p.o. t.i.d. cc: Yoshi Alvares MD
--- NOTE | 2017-05-28 10:40 | PROGRESS NOTE ---
DATE: 05/28/2017 PRESENT ILLNESS: The patient yesterday had a Port-A-Cath placed. He also had removal of bladder stones. Today, his temperature is up to 101.2. Given that the patient has been on Zosyn and micafungin, he is on fairly good coverage for Gram-negative nancy organisms and fungus. Therefore, I think there is a high likelihood that the patient has methicillin-resistant Staphylococcus aureus infection and, specifically, this may be arising from his PICC in the left arm. MEDICATIONS: As mentioned above, the patient is on micafungin and Zosyn. PHYSICAL EXAMINATION: Vital Signs: Temperature is 101.2 degrees, pulse 127, respirations 20, blood pressure 133/72. General: This is a lethargic young male who is in no acute distress. The family tells me that when he does have fever, he becomes lethargic like he is now in the bed. Lungs: Clear to auscultation. Cardiovascular: Regular heart rate. Abdomen: Soft and nontender. Genitalia: No Langley catheter is in place. Neurologic: As mentioned above, the patient is lethargic. Extremities: Patient has a PICC in the left arm. The site is not erythematous or swollen. LABORATORY AND X-RAY: This morning, the patient's CBC showed a white count of 7180, hemoglobin 9, and platelet count 142,000. Creatinine is 0.9. GFR is greater than 60. Yesterday, the patient had a chest x-ray that showed clear lung gates. Blood cultures drawn earlier are sterile and a urine sent down for culture earlier is growing yeast. ASSESSMENT AND PLAN: Patient has a fever now. As mentioned above, he has pretty good coverage for yeast and Gram-negative rods, so I am going to add vancomycin to cover for the possibility of Gram-positive cocci and specifically methicillin-resistant Staphylococcus aureus. COMORBIDITIES: He has severe cerebral palsy with extreme spasticity. cc: Shilo Bush MD
--- NOTE | 2017-05-28 11:30 | Diag Imaging Result Doc PS360 ---
EXAM: CHEST-1 VIEW HISTORY: pneumonia TECHNIQUE: AP semiupright chest COMMENT: There is gas containing colon under the right hemidiaphragm and some oral contrast in the stomach. There is a PICC line on the left with its tip just above the right atrium and a Port-A-Cath on the right with its tip in the right atrium. There is ill-defined opacity in the mid lung field on the left which was not present on 05/27/2017. Otherwise has been no significant change. IMPRESSION: Questionable early pneumonia in the left midlung. Electronically signed by Dio Patel 05/28/2017 11:27 AM
--- NOTE | 2017-05-28 11:36 | Diag Imaging Result Doc PS360 ---
EXAM: BA SWALLOW W/VIDEO SPEECH THER HISTORY: aspiration pneumonitis on CT TECHNIQUE: COMPARISON: None. FINDINGS: Thin barium and barium mixed with pudding were swallowed. Patient had some difficulty initiating swallowing. Laryngeal penetration with aspiration occurred with both consistencies. IMPRESSION: Aspiration. Electronically signed by Emerson Means 05/28/2017 11:33 AM
[2017-05-28] MEDS: LIORESAL PO SCH ×3 (11:48→20:33)
[2017-05-28] MEDS: PERIDEX MT SCH ×2 (11:48→20:52)
[2017-05-28] MEDS: MIRALAX PO SCH ×3 (11:49→21:05)
[2017-05-28] MEDS: FLEET ENEMA PR SCH (12:09)
[2017-05-28] MEDS: ALLEGRA PO SCH (12:11)
[2017-05-28] MEDS: NEURONTIN PO SCH ×2 (12:11→20:52)
[2017-05-28] MEDS: SINGULAIR PO SCH (12:11)
[2017-05-28] MEDS: MYCAMINE 100 MG in NS 100 ML IV SCH (14:37)
[2017-05-28] MEDS: VANCOMYCIN 1.25 GM in NS 250 ML IV ONE ×2 (15:39→17:08)
[2017-05-28 17:12] LABS: ALBUMIN 3.5 g/dL (3.5-5.0); DIRECT BILIRUBIN 0.3 mg/dL (0.00-0.20); TOTAL BILIRUBIN 3.01 mg/dL (0.20-1.00); TOTAL PROTEIN 6.4 g/dL (6.3-8.3)
[2017-05-28] MEDS ORDERED: REGLAN IV PRN (17:23)
[2017-05-28] MEDS ORDERED: PHENERGAN IV PRN (17:25)
[2017-05-28] MEDS ORDERED: SODIUM CHLORIDE 0.9% INJ PRN (17:25)
--- NOTE | 2017-05-28 17:46 | PROGRESS NOTE ---
DATE: 05/28/2017 Bertin per his family who is present at the bedside has been less assertive and alert. He had not expressed discomfort. OBJECTIVE: Vital Signs: T 96.9 degrees, P 101, BP 119/87. General: No acute distress. Abdomen: Nontender, nondistended. : Suprapubic tube in place draining light pink urine without clots. PERTINENT LABS: White cell count 7000, hematocrit of 27, creatinine of 0.9. ASSESSMENT AND PLAN: 26-year-old male, status post cystolitholapaxy with holmium laser. He is stable from urinary standpoint. I have discussed with the family that his bladder stones were removed and once he is cleared from the overall medical standpoint by Dr. Alvares he is ready for discharge from Urology standpoint. He will continue his suprapubic tube which has been exchanged on a monthly basis by home health. His mother expressed interest in administering IV fluids in order to increase his hydration. He will have a PICC line as well as a port that he may be able to use. PLAN: Keep suprapubic tube to gravity drainage. Please call with questions. He will have his PICC exchanged as per routine. cc: Isaiah Scott MD
--- NOTE | 2017-05-28 18:44 | Diag Imaging Result Doc PS360 ---
EXAM: FLAT/UPRIGHT ABD/1 VIEW CHEST HISTORY: lethargy, n/v, hx fecal impaction TECHNIQUE: Three views COMPARISON: Films taken earlier in the day FINDINGS: The lungs are well expanded. No change in the right subclavian portacatheter, tracheostomy tube, or the left-sided PICC line. No pneumonia. Marked scoliosis. No bowel obstruction. No organomegaly. IMPRESSION: No acute abnormality. Electronically signed by Emerson Means 05/28/2017 6:42 PM
[2017-05-28] MEDS: ALBUTEROL NEB INH PRN (19:35)
[2017-05-28] MEDS ORDERED: ATIVAN IV PRN (20:26)
[2017-05-28] MEDS: COUMADIN PO SCH (20:52)
--- NOTE | 2017-05-28 22:33 | CONSULTATION ---
DATE OF CONSULTATION: 05/28/2017 REFERRING PHYSICIAN: Matthieu Sheffield MD INDICATION FOR CONSULTATION: 1. Fatty liver on abdominal ultrasound. 2. Elevated total bilirubin. 3. Elevated AST. 4. Changes on renal CT consistent with chronic aspiration. HISTORY OF PRESENT ILLNESS: The patient is a 26-year-old white male with severe cerebral palsy who is interactive and understand simple questions at baseline. He was admitted with hematuria. He has been treated as an outpatient by Dr. Shilo Bush for chronic recurrent urinary tract infection and is currently on Zosyn at the time of admission. He was last admitted on 03/19/2017 with fever and has since been followed by Dr. Bush. This admission he underwent a renal CT that was remarkable for multiple bladder stones, bilateral kidney stones, severe constipation with rectal stool impaction and chronic nodular infiltrative changes in the lung bases consistent with chronic aspiration. On 05/27/2017 he underwent cystoscopy and removal of the multiple bladder stones. He also underwent a right subclavian port placement for venous access. He currently has a PICC line in the left upper extremity and a suprapubic catheter. Incidentally on admission he was noted to have an elevated bilirubin which had been normal 3 weeks before. He was also noted to have a mild bump in his AST which was new. Abdominal ultrasound was obtained and was remarkable for fatty liver. There was no evidence of gallstones or thickened gallbladder present. His clinical course has been remarkable for nausea with vomiting and fever. Because of the multiple GI concerns, we are asked to participate in his care. PAST MEDICAL HISTORY: 1. Cerebral palsy with spasticity. 2. Seizure disorder. 3. GERD. 4. Kidney stones. PAST SURGICAL HISTORY: 1. Scoliosis. 2. Spinal nancy placement. 3. Suprapubic catheter placement. 4. Tracheostomy. 5. Lithotripsy times multiple. 6. Right Port-A-Cath placement. 7. Jenna fundoplication. FAMILY HISTORY: Negative for colon cancer. SOCIAL HISTORY: The patient lives with his family. There is no alcohol, tobacco or recreational drug use history. He normally attends a day care program for special needs adults and has been interactive with the staff and enjoys eating regular food. He is fed by his family but assists somewhat according to his mom. MEDICATION ALLERGIES: Latex. HOME MEDICATIONS: 1. Albuterol nebulizer. 2. Baclofen. 3. Klonopin. 4. Clonazepam. 5. Jessie. 6. Neurontin. 7. Lamictal. 8. Zosyn. 9. Singulair. REVIEW OF SYSTEMS: Unobtainable. Today the patient is not interactive. According to his mom he is more somnolent than usual. At baseline he is normally smiling, understands simple questions and is involved with eating and participates in group discussions. PHYSICAL EXAM: Vital signs: His blood pressure is 112/78, pulse of 81, respiration 18, temperature of 96.9 degrees. HEENT: Notable for possible early jaundice. His oropharyngeal mucosa membranes are dry. Neck: Supple. He is lying in bed with his head deviated to the right with minimal interaction. His neck is supple. However there is a tracheostomy in place that appears clean and dry. Pulmonary: Breath sounds are coarse. There are decreased breath sounds in the bases bilaterally. He has evidence of severe scoliosis. Cardiovascular: He has regular rate and rhythm with no gallops or rubs. Abdominal Exam: Reveals normoactive bowel sounds. The abdomen is soft, nontender with no rebound or guarding. There is a suprapubic catheter in the low abdomen. Extremities: Bilaterally are remarkable in that they are short statured with spastic contractions consistent with his history of spastic cerebral palsy. Neurologic: He is minimally interactive. He remained asleep throughout the entire exam. OBJECTIVE DATA: Reveals a hemoglobin of 9.0 with hematocrit 27.3 and a white count 7.18. He has 142,000 platelets. Sodium is 144, potassium 4.0, chloride 108, CO2 24, BUN 12, creatinine 0.9, glucose of 90. His calcium is 8.3. Total bilirubin is 3.01 with a direct bilirubin 0.30. His AST is 56 with ALT of 16. His alkaline phosphatase is 47, total protein 6.4 and albumin 3.5. IMPRESSION: 1. Anemia with an acute drop in his hemoglobin since admission. 2. Elevated total bilirubin. 3. Elevated AST. 4. Fatty liver on abdominal ultrasound. 5. Chronic aspiration changes on swallow study. 6. Fecal impaction with large rectal fecalith on renal CT. 7. Nausea with vomiting overnight. 8. Chronic intermittent dysphagia secondary to cerebral palsy. 9. Fever this admission. RECOMMENDATION: 1. With regard to his hemoglobin, it is unclear if it is related to his urologic procedures or if he is having evidence of GI bleeding. He has had a few small brown bowel movements this admission with no obvious GI bleed. I recommend that we check a Hemoccult once he is moving his bowels on a regular basis. We should also monitor serial hemoglobin and hematocrit. 2. For the elevated liver function tests, he has indirect hyperbilirubinemia. The differential includes medication, [employer] shunt, thyroid disease, Dilshad disease and hemolysis. Liver tests have been normal all of his life except for the last 3 weeks. I strongly suspect this is related to the Zosyn. However, I had a lengthy discussion with Dr. Shilo Bush. We reviewed his cultures and sensitivities and Zosyn remains the most appropriate treatment. We will monitor his liver function tests. If they continue to rise will need to consider his medications, specifically his Zosyn therapy. 3. The patient has evidence of fatty liver on abdominal ultrasound. At this time, I will monitor that and consider intervention only if his liver tests remain persistently elevated. There is no indication for ERCP or liver biopsy at this time. 4. The patient has evidence of chronic aspiration changes on renal CT. I ordered a swallow study. After 2 swallows of barium he had mild aspiration with thin liquids. He is currently on a pureed diet. I spoke with Ryan Vigil from speech pathology who plans to repeat the swallow study on Wednesday with pureed foods. This is important to the patient and his family as eating is one of his favorite activities. 5. The patient has had nausea with vomiting this admission and shows evidence of fecal impaction on CT scan. He has had 3 small bowel movements with the assistance of a Fleet enema and a Dulcolax suppository. I strongly suspect that the fecal impaction persists. Therefore, I will prescribe soapsuds enema tonight and in the morning. 6. If he has evidence of vomiting overnight, I would have a low threshold for placing a nasogastric tube. I repeated his KUB and chest x-ray. There was no evidence of obstruction. 7. The patient has a history of dysphagia. According to Ryan Vigil, he has tolerated a pureed diet in the past with minimal aspiration. We will continue this. 8. The patient will need a regular bowel program. Therefore, I recommend increasing his MiraLAX to twice a day to soften the stool that exists. After we are able to move his bowels on a consistent basis I would consider adding a p.r.n. dose of Dulcolax or Senna-S. 9. The patient was prescribed Reglan for the nausea with vomiting. I have discontinued this in light of the fact that he may have a bowel obstruction from the fecal impaction. Please check a stool for blood with Hemoccult cards. 10. Additional recommendations to follow based on the clinical course and the results of his tests. cc: Yoshi Alvares MD
[2017-05-29] MEDS: FLEET ENEMA PR SCH ×2 (01:53→21:30)
[2017-05-29] MEDS: ZOSYN 3.375 GM/NS 3.375 GM/50 ML IVPB IV SCH ×3 (04:59→18:50)
[2017-05-29] MEDS: NS 1,000 ML IV SCH ×2 (05:02→08:53)
[2017-05-29 06:08] LABS: MANUAL DIFF NEEDED? NO
[2017-05-29 06:26] LABS: BASO% 0.9 % (0.0-0.8); EOS# 0.18 X1000 (0.0-0.7); HEMATOCRIT 24.2 % (42.0-52.0); HEMOGLOBIN 7.9 g/dL (14.0-18.0); LYMPH# 1.26 X1000 (1.2-3.4); LYMPH% 28.3 % (20.5-51.1); MCH 29.6 PG (27-31); MCHC 32.6 g/dL (33-37); MCV 90.6 FL (81-99); MONO# 0.45 X1000 (0.11-0.59); MONO% 10.1 % (1.7-9.3); MPV 9.5 FL (7.4-10.4); NEUT% 56.7 % (42.2-75.2); PLT 159 X1000 (130-400); RBC 2.67 XMIL (4.7-6.1)
[2017-05-29 06:38] LABS: AGAP 13; ALBUMIN 3.7 g/dL (3.5-5.0); ALKALINE PHOSPHATASE 52 U/L (32-122); BUN 16 mg/dL (8-22); CALCIUM 8.4 mg/dL (8.8-10.2); CHLORIDE 106 mmol/L (98-107); COSMO 283; GOT 41 U/L (10-34); GPT 20 U/L (10-44); MAGNESIUM 1.9 mg/dL (1.5-2.7); SODIUM 142 mmol/L (136-145); TCO2 23 mmol/L (25-35); TOTAL BILIRUBIN 2.14 mg/dL (0.20-1.00)
[2017-05-29] MEDS: ALBUTEROL NEB INH PRN ×2 (07:50→15:23)
--- NOTE | 2017-05-29 08:39 | PROGRESS NOTE ---
DATE: 05/29/2017 SUBJECTIVE: Mr. Ruiz's family states he had a better night. He does not appear to be in distress. OBJECTIVE: Vital Signs: T 98.4, P 93, BP 115/70. General: In no acute distress. : Suprapubic tube in place draining straw-colored urine. PERTINENT LABORATORY DATA: White cell count of 4000, hematocrit 24, creatinine of 1. ASSESSMENT: A 26-year-old male with gross hematuria and bladder stones who is currently having gastrointestinal issues. He is clear from the urologic standpoint. PLAN: 1. Keep suprapubic tube to gravity drainage. 2. No further urologic issues at this point. 3. Please call with questions. cc: Isaiah Scott MD
[2017-05-29] MEDS: ALLEGRA PO SCH (08:54)
[2017-05-29] MEDS: SINGULAIR PO SCH (08:54)
[2017-05-29] MEDS: NEURONTIN PO SCH ×2 (08:54→21:25)
[2017-05-29] MEDS: PERIDEX MT SCH ×2 (08:54→21:23)
[2017-05-29] MEDS: LAMICTAL PO SCH ×2 (08:54→21:25)
[2017-05-29] MEDS: LIORESAL PO SCH ×3 (08:54→21:23)
[2017-05-29] MEDS: KLONOPIN PO SCH ×2 (08:55→21:24)
[2017-05-29] MEDS: MIRALAX PO SCH ×2 (08:55→21:22)
[2017-05-29] MEDS ORDERED: FLEET ENEMA PR ONE (09:20)
[2017-05-29] MEDS: VANCOMYCIN 1 GM/NS 1 GM/250 ML IVPB IV SCH (12:10)
--- NOTE | 2017-05-29 15:47 | PROGRESS NOTE ---
DATE: 05/29/2017 He has had a rough night. He had some vomiting yesterday and then had a short episode of seizure. Dr. Bush is following, Dr. Escalona was consulted. He has severe cerebral palsy. He is interactive, understand simple questions. They have been treating him for chronic urinary tract infection. Currently he is on Zosyn at the time of admission. Had some gross hematuria. Found some multiple bladder stones, severe constipation, rectal stool impaction, chronic nodular infiltrative changes in the lung bases consistent with chronic aspiration and he has a little left infiltrate as well. He underwent right subclavian port placement. He has a PICC line in the left upper extremity. He is having fever. So attempting to disimpact him and apparently has had some success. Nausea has diminished. Fever, multiple possibilities including his PICC line and aspiration but also could be more of the chronic urinary tract infection. Cerebral palsy. Seizure. He has had abdominal x-ray on the with no acute abnormality. There is no sign of bowel obstruction at that time. We will adjust his Klonopin. He is supposed to have 0.5 mg in the morning and 1 mg at bedtime, I believe. I am giving him Ativan p.r.n. He is on baclofen 40 mg p.o. t.i.d. and I think we put him back on his Colace 100 mg twice a day. cc: Yoshi Alvares MD
--- NOTE | 2017-05-29 16:16 | Diag Imaging Result Doc PS360 ---
EXAM: CHEST-PORTABLE HISTORY: pneumonia TECHNIQUE: Portable upright AP COMPARISON: 05/28/2017 FINDINGS: No change in the tracheostomy tube, right subclavian line, or the left-sided PICC line. Right hemidiaphragm is elevated. The heart is not enlarged. The vessels are not distended. No definite infiltrates. No pleural effusions identified. IMPRESSION: Negative chest. Electronically signed by Emerson Means 05/29/2017 4:14 PM
[2017-05-29] MEDS: MYCAMINE 100 MG in NS 100 ML IV SCH (21:22)
[2017-05-29] MEDS: COUMADIN PO SCH (21:24)
[2017-05-29] MEDS: COLACE PO SCH (21:25)
[2017-05-30] MEDS: ZOSYN 3.375 GM/NS 3.375 GM/50 ML IVPB IV SCH ×6 (00:53→23:06)
[2017-05-30] MEDS: NS 1,000 ML IV SCH ×4 (01:02→17:05)
[2017-05-30 06:22] LABS: MANUAL DIFF NEEDED? NO
[2017-05-30 06:35] LABS: BASO% 1.4 % (0.0-0.8); EOS# 0.37 X1000 (0.0-0.7); EOS% 8.5 % (0.0-10.0); HEMATOCRIT 30.1 % (42.0-52.0); IMM GRAN# 0.03 X1000 (0.0-0.04); IMM GRAN% 0.7 % (0.0-0.5); LYMPH# 1.11 X1000 (1.2-3.4); LYMPH% 25.4 % (20.5-51.1); MCH 29.9 PG (27-31); MCHC 33.2 g/dL (33-37); MCV 89.9 FL (81-99); MONO# 0.46 X1000 (0.11-0.59); MONO% 10.5 % (1.7-9.3); MPV 9.3 FL (7.4-10.4); NEUT% 53.5 % (42.2-75.2); PLT 163 X1000 (130-400); RBC 3.35 XMIL (4.7-6.1)
[2017-05-30 06:39] LABS: AGAP 13; ALBUMIN 3.2 g/dL (3.5-5.0); ALKALINE PHOSPHATASE 50 U/L (32-122); BUN 13 mg/dL (8-22); CALCIUM 8.6 mg/dL (8.8-10.2); CHLORIDE 106 mmol/L (98-107); COSMO 281; GOT 29 U/L (10-34); GPT 17 U/L (10-44); POTASSIUM 3.7 mmol/L (3.5-5.1); SODIUM 141 mmol/L (136-145); TCO2 22 mmol/L (25-35); TOTAL BILIRUBIN 2.03 mg/dL (0.20-1.00); TOTAL PROTEIN 5.9 g/dL (6.3-8.3)
[2017-05-30] MEDS ORDERED: NS 500 ML IV ONE (06:39)
[2017-05-30] MEDS ORDERED: ATROPINE IV ONE (06:42)
[2017-05-30 06:56] LABS: ALLEN TEST YES; BE -0.7 mmoll (-3.0-3.0); BLOOD TYPE ARTERIAL; DRAW SITE R RADIAL; METHB 1.1 % (0.0-1.5); MODALITY ROOM AIR; O2(CT) 13.3 mL/dL (15.0-23.0); PCO2(98.6) 40 mmHg (35-45); PO2(98.6) 83 mmHg (60-100); SAMPLE BLOOD; SAO2 98.7 % (95.0-100.0); pH(98.6) 7.39 (7.35-7.45)
[2017-05-30] MEDS: ALBUTEROL NEB INH PRN ×4 (07:39→19:40)
--- NOTE | 2017-05-30 08:23 | Diag Imaging Result Doc PS360 ---
EXAM: KUB ABDOMEN - 05/30/2017 HISTORY: severe constipation TECHNIQUE: Portable AP supine abdomen 0810 COMPARISON: 05/28/2017 FINDINGS: There are some nonspecific mild gaseous bowel distention which is most conspicuous at the midabdomen. There are some retained fecal debris in the colon which may relate to mild constipation. There is some pleural catheter again seen overlying the pelvis with its tip of the lower pelvis at the left midline. There are severe lumbar levorotatory scoliosis again noted. IMPRESSION: Nonspecific mild gaseous bowel distention, primarily at the mid abdomen. Possible mild constipation. Electronically signed by Noah Nichols 05/30/2017 8:20 AM
[2017-05-30] MEDS ORDERED: GOLYTELY PO ONE (10:01)
[2017-05-30] MEDS: NEURONTIN PO SCH ×2 (10:36→21:21)
[2017-05-30] MEDS: LIORESAL PO SCH ×3 (10:36→21:20)
[2017-05-30] MEDS: COLACE PO SCH ×2 (10:36→21:21)
[2017-05-30] MEDS: LAMICTAL PO SCH ×2 (10:36→21:20)
[2017-05-30] MEDS: KLONOPIN PO SCH ×2 (10:36→21:21)
[2017-05-30] MEDS: SINGULAIR PO SCH (10:36)
[2017-05-30] MEDS: ALLEGRA PO SCH (10:36)
[2017-05-30] MEDS: MIRALAX PO SCH ×3 (10:37→21:27)
[2017-05-30] MEDS: PERIDEX MT SCH ×2 (10:37→21:20)
--- NOTE | 2017-05-30 11:23 | PROGRESS NOTE ---
DATE: 05/30/2017 SUBJECTIVE: Mr. Ruiz had a rough night, he was pretty lethargic, heart rate was going down in the 40s. He seems to have improved. We gave him a little fluid. He looks better now. His mother is encouraged. She would like to try and feed him again. He obviously has chronic aspiration. They do not want to pursue a PEG tube so we will put him back on a regular diet and safe and mother would like to try and feed him. His urine is clear. No further blood. OBJECTIVE: Vital Signs: Temperature 97.3 degrees, pulse 66, respirations 12, blood pressure 105/66. HEENT: Pupils are equal, round, no distended neck veins. His mouth seems a little dry. Mucous membranes dry. Tracheostomy appreciated. Lungs: Clear in all lung gates. Cardiovascular: Regular rhythm and rate without murmur or S3. Abdomen: Soft. Skin: Warm and dry. Urine output is over 4 L almost 5 L. LABORATORY DATA: Review lab. White count 4370, hematocrit was 30, platelet count a 163,000. Sodium 141, potassium 3.7, chloride 106, bicarbonate 22, BUN 13, creatinine 1.0. C. reactive protein, went down from 58 to 33. Albumin is 3.2. Abdominal flat and upright done this morning. Nonspecific mild gaseous bowel distention probably in mid abdomen, possible mild constipation. He has had quite a bit of results from the enemas. ASSESSMENT AND PLAN: 1. Constipation/obstipation. Continue present regimen. Appreciate Dr. Shrestha and Dr. Escalona's He is had results so I think we will continue cathartics from above and enemas from below. 2. Chronic aspiration. His chest x-ray repeated, yesterday, negative chest. He has a pattern on x-ray that is consistent with chronic aspiration. Barium swallow, confirms that. We will try and do some thickening for his fluids and mother would like to put him back on a regular diet. 3. Gross hematuria. Numerous bladder stones which been removed. 4. Cerebral palsy. Aware. 5. Nutrition. Encourage p.o. intake. 6. He has had fever and has been treated for chronic urinary tract infection. I also question on whether his PICC line may be involved. Urine grew out yeast. No culture from the blood culture from 05/28. Dr. Bush is on the case. We will continue the current regimen. He is on vancomycin. He is on Zosyn and I believe he is getting micafungin. 7. History of seizures. We have him back on his normal medicine. Lamictal 150 mg at bedtime and 100 mg in the morning. Neurontin 100 mg in the morning and 300 in the evening. He gets clonidine 0.5 in the morning, and 1 mg at night. cc: Yoshi Alvares MD
[2017-05-30] MEDS: VANCOMYCIN 1 GM/NS 1 GM/250 ML IVPB IV SCH (11:30)
--- NOTE | 2017-05-30 19:33 | PROGRESS NOTE ---
DATE: 05/29/2017 SUBJECTIVE: Patient had vomiting yesterday. She had a short seizure. Patient's family at bedside. He had several bowel movements last night. OBJECTIVE: Vital signs: Stable. Heart: Normal. Lungs: Normal. Abdomen: Benign. Extremities: Unremarkable. ASSESSMENT: The patient has multiple medical problems. 1. Nausea and vomiting. 2. Chronic constipation and possible impaction with good results. He had 4 bowel movements. Patient is actually feeling better. 3. Seizures. There are multiple medications currently being looked into and checking the dose. 4. Anemia. Being looked into. cc: Dee Delarosa MD
--- NOTE | 2017-05-30 19:47 | PROGRESS NOTE ---
DATE: 05/30/2017 SUBJECTIVE: Patient had vomiting yesterday. He had a short seizure. Patient family at bedside. He had several bowel movements last night. OBJECTIVE: Vital signs: Stable. Heart: Normal. Lungs: Normal. Abdomen: Benign. Extremities: Unremarkable. ASSESSMENT: Patient has multiple medical problems. 1. Nausea and vomiting. 2. Chronic constipation and possible impaction with good results. He had 4 bowel movements. Patient is actually feeling better. 3. Seizures. There are multiple medications currently being looked into and checking into those. 4. Anemia being looked into. -7 cc: Dee Delarosa MD
--- NOTE | 2017-05-30 19:49 | PROGRESS NOTE ---
DATE: 05/30/2017 SUBJECTIVE: Again, another bad night. He had not been able to the eat. Consideration was given for PEG tube, but they are not quite ready. OBJECTIVE: Vital signs: Temperature 97 degrees. Pulse is 63. respiratory rate 12, blood pressure 105/66. HEENT: Mucosa dry. No scleral icterus. Tracheostomy in place. Heart: Normal. Lungs: Normal. Abdomen: Soft. LABORATORY DATA: White count 4000, hematocrit 30. Electrolytes are normal. Albumin 3.2. IMPRESSION AND PLAN: 1. Chronic constipation which has since been better. He had 4-5 bowel movements day before and two during the night. 2. Chronic aspiration. 3. Cerebral palsy. 4. Nutrition problem. 5. Chronic urinary tract infection. 6. History of seizures. His nutrition need is going to be a problem. He will probably need a percutaneous endoscopic gastrostomy, but the family is not quite ready at this point. We will continue to follow and take the lead from the family's wishes. -8 cc: Dee Delarosa MD
[2017-05-30] MEDS: MYCAMINE 100 MG in NS 100 ML IV SCH (21:19)
[2017-05-30] MEDS: COUMADIN PO SCH (21:21)
[2017-05-30] MEDS: FLEET ENEMA PR SCH (21:26)
[2017-05-31] MEDS: NS 1,000 ML IV SCH ×2 (03:32→04:56)
[2017-05-31] MEDS: ZOSYN 3.375 GM/NS 3.375 GM/50 ML IVPB IV SCH ×2 (04:54→11:55)
--- NOTE | 2017-05-31 06:22 | EKG Report ---
Test Performed on : 05/30/2017 06:37:55 AM Test Reason : bradycardia Blood Pressure : / mmHG Vent. Rate : 056 BPM Atrial Rate : 056 BPM P-R Int : 166 ms QRS Dur : 088 ms QT Int : 434 ms P-R-T Axes : 028 056 041 degrees QTc Int : 418 ms Sinus bradycardia. with sinus arrhythmia. Otherwise normal ECG When compared with ECG of 23-JAN-2013 09:03, Vent. rate has decreased BY 47 BPM Nonspecific T wave abnormality no longer evident in Inferior leads Nonspecific T wave abnormality no longer evident in Lateral leads Confirmed by Giulia Mata MD ([id number]) on 05/31/2017 10:17:44 AM
[2017-05-31] MEDS: PERIDEX MT SCH (09:27)
[2017-05-31] MEDS: LAMICTAL PO SCH (09:27)
[2017-05-31] MEDS: MIRALAX PO SCH (09:27)
[2017-05-31] MEDS: LIORESAL PO SCH ×2 (09:28→16:09)
[2017-05-31] MEDS: SINGULAIR PO SCH (09:28)
[2017-05-31] MEDS: NEURONTIN PO SCH (09:28)
[2017-05-31] MEDS: ALLEGRA PO SCH (09:28)
[2017-05-31] MEDS: COLACE PO SCH (09:28)
[2017-05-31] MEDS: KLONOPIN PO SCH (09:29)
[2017-05-31] MEDS: ALBUTEROL NEB INH PRN ×2 (09:47→15:44)
[2017-05-31] MEDS: VANCOMYCIN 1 GM/NS 1 GM/250 ML IVPB IV SCH (11:56)
--- NOTE | 2017-05-31 13:43 | DISCHARGE SUMMARY ---
ADMISSION DATE: 05/25/2017 DISCHARGE DATE: 05/31/2017 PRIMARY CARE PHYSICIAN: Dr. Sheffield. HISTORY AND HOSPITAL COURSE: This is a 26-year-old who presented on 05/25/2017. He has a history of cerebral palsy, suprapubic catheter, and a trach, confined to the bed. He has lower muscle contractions. Presented with gross hematuria. He seemed to clear once he got to the emergency room, but we decided to admit him and sure enough, he had some more gross hematuria. Dr. Scott was consulted and they found numerous bladder stones which were removed. Hematuria did clear but then he developed more fever. Concerned about continued urinary tract infection and so Dr. Bush was on the case and advanced his antibiotics. Concerned about a more profound urinary tract infection. He had a Port-A-Cath placed. Also removed gallbladder stones as mentioned. He did spike a temp of a 101.2 degrees and I think at 102. He has been on Zosyn and micafungin. Fairly good coverage for gram-negative. Dr. Bush was concerned about possible methicillin-resistant Staph aureus from the PICC line. Had good coverage for yeast and gram-negative but added vancomycin. Family wanted him to be discharged on 05/31/2017. Will discuss with Dr. Bush what the plan is for antibiotics. He did show signs on x-ray of chronic aspiration. We did a barium swallow and indeed he has ongoing aspiration. Family does not want to pursue a PEG tube. They were able to start feeding him again and thicken his liquids. They understand the risk but would like to see if they can get him home on 05/31/2007. So we will see if we can get him ready. I want to discuss the plan with Dr. Bush. He did have a fecal impaction and so Dr. Escalona was consulted. He had emesis and some cathartics and he finally had some relief. DISCHARGE MEDICATIONS: His home medication I think will be baclofen 40 mg p.o. t.i.d., Klonopin 0.5 mg in the morning and I think 1 mg at night, Colace 100 mg b.i.d., Jessie 60 mg a day, Neurontin 300 mg a day, Lamictal 100 mg daily in the morning and 150 mg at bedtime. Will discuss his antibiotics. I believe he may need to stay on the Zosyn and the micafungin and we may be giving him vancomycin for a while. He is on Coumadin 1 mg at bedtime. Note his protime/INR was 1.01 on 05/27. We will recheck that. cc: Yoshi Alvares MD
[2017-05-31 15:12] VITALS: BP 130/76
--- NOTE | 2017-05-31 17:55 | PROGRESS NOTE ---
DATE: 05/31/2017 PRESENT ILLNESS: The patient had a fungal bladder infection and the presence of bladder stones. The stones have been removed and thus I think the patient's urinary tract infection due to fungus will clear up also. In addition, the patient had pneumonia and on his latest chest x-ray the lungs are clear. MEDICATIONS: The patient is on a combination of vancomycin, Zosyn, and micafungin. PHYSICAL EXAMINATION: Vital Signs: Temperature is 97.6 degrees, pulse 70, respirations 18, blood pressure 130/76. General: This is a chronically ill-appearing, young male, who is in no acute distress. Neck: The patient has a tracheostomy in place. Lungs: There were scattered rhonchi bilaterally. Cardiovascular: Heart rate is regular. Abdomen: Soft and nontender. Patient has a suprapubic tube in place. Extremities: Patient has a PICC in the left arm. The PICC site is not erythematous or swollen. LAB AND X-RAY: Chest x-ray shows clear lung gates. The patient's CBC shows a white count of 4,370, hemoglobin 10, and platelet count 163,000. Arterial blood gases, pH is 7.39, PO2 is 83, pCO2 is 40. Creatinine is 1. GFR is greater than 60. Blood cultures are negative. As mentioned above, the urine did grow yeast. ASSESSMENT AND PLAN: I think the patient can be discharged now on no antibiotics or antifungal agent. It was found that the patient does aspirate liquids and the patient's mother is going to use a thickening substance to hopefully to prevent further aspiration. The patient's comorbidities, he has severe cerebral palsy. He has extreme spasticity. He has a suprapubic tube in place. He also aspirates. cc: Shilo Bush MD
== END 2017-05-31 17:33 | disposition home health service (06) ==
LOC: ED 10:53 → SUATTDRO 20:21 → 4N 20:21 → 3N 05-28 16:01
PROVIDERS: ATTEND Emergency Medicine

== ENCOUNTER 2017-07-08 23:08 | Inpatient (IN) ==
[2017-07-09 02:03] LABS: MANUAL DIFF NEEDED? NO
[2017-07-09 02:09] LABS: BASO% 0.3 % (0.0-0.8); EOS# 0.22 X1000 (0.0-0.7); EOS% 2.5 % (0.0-10.0); HEMATOCRIT 39.3 % (42.0-52.0); LYMPH# 1.58 X1000 (1.2-3.4); LYMPH% 17.6 % (20.5-51.1); MCH 29.7 PG (27-31); MCHC 33.1 g/dL (33-37); MCV 89.7 FL (81-99); MONO# 1.04 X1000 (0.11-0.59); MONO% 11.6 % (1.7-9.3); MPV 9.6 FL (7.4-10.4); PLT 162 X1000 (130-400); RBC 4.38 XMIL (4.7-6.1)
[2017-07-09] MEDS ORDERED: TYLENOL PR PRN (02:11)
[2017-07-09] MEDS ORDERED: VANCOMYCIN IV PER PHARMACY MISC SCH (02:11)
[2017-07-09] MEDS ORDERED: VANCOMYCIN 1 GM/NS 1 GM/250 ML IVPB IV ONE (02:11)
[2017-07-09] MEDS ORDERED: ZOFRAN IV PRN (02:11)
[2017-07-09 02:20] LABS: AGAP 9; ALBUMIN 3.3 g/dL (3.5-5.0); ALKALINE PHOSPHATASE 109 U/L (32-122); BUN 21 mg/dL (8-22); CALCIUM 8.7 mg/dL (8.8-10.2); CHLORIDE 104 mmol/L (98-107); CK PROFILE 64 U/L (24-204); COSMO 278; GOT 31 U/L (10-34); GPT 37 U/L (10-44); POTASSIUM 4.3 mmol/L (3.5-5.1); SODIUM 138 mmol/L (136-145); TCO2 25 mmol/L (25-35); TOTAL BILIRUBIN 0.44 mg/dL (0.20-1.00); TOTAL PROTEIN 6.7 g/dL (6.3-8.3)
[2017-07-09 02:23] LABS: INR 1.05; PROTIME 11.1 Seconds (9.2-11.7)
[2017-07-09] MEDS: ZOSYN 3.375 GM in NS 50 ML IV SCH ×4 (03:59→21:40)
[2017-07-09] MEDS: NS 1,000 ML IV SCH ×2 (04:00→21:39)
[2017-07-09] MEDS ORDERED: VANCOMYCIN 1,300 MG in NS 250 ML IV ONE (04:00)
[2017-07-09] MEDS ORDERED: LIORESAL PO SCH (06:00)
--- NOTE | 2017-07-09 06:33 | Diag Imaging Result Doc PS360 ---
EXAM: CHEST-1 VIEW HISTORY: fever, admission TECHNIQUE: Portable AP COMPARISON: 05/29/2017 FINDINGS: There is a tracheostomy tube and a right subclavian portacatheter. These are unchanged. Previously there was a left-sided PICC line. This is no longer present. Heart is not enlarged. The vessels are not distended. No pleural effusions identified. No consolidation. IMPRESSION: No pneumonia identified. Follow-up films may be beneficial.. Electronically signed by Emerson Means 07/09/2017 6:31 AM
[2017-07-09 07:33] LABS: URINE MICRO REVIEW NEEDED? NO; URINE SOURCE CATH
[2017-07-09 07:37] LABS: BILIRUBIN URINE NEGATIVE (NEGATIVE); BLOOD URINE SMALL (NEGATIVE); COLOR YELLOW; GLUCOSE URINE NEGATIVE (NEGATIVE); LEUKOCYTES URINE LARGE (NEGATIVE); NITRITE URINE POSITIVE (NEGATIVE); PROTEIN URINE TRACE mg/dL (NEGATIVE); SP GRAVITY URINE 1.019; TURBIDITY URINE HAZY (CLEAR); UROBILINOGEN URINE NORMAL (NORMAL)
[2017-07-09 07:38] LABS: UR EPITHELIAL CELLS <10 /HPF (<10); URINE BACTERIA 1+ /HPF; URINE CULTURE NEEDED? YES; URINE WBC TNTC /HPF (<10)
[2017-07-09] MEDS: COLACE PO SCH ×2 (08:54→21:39)
[2017-07-09] MEDS: KLONOPIN PO SCH ×2 (08:54→21:39)
[2017-07-09] MEDS: MIRALAX PO SCH (08:54)
[2017-07-09] MEDS: NEURONTIN PO SCH ×2 (08:54→21:39)
[2017-07-09] MEDS: ALLEGRA PO SCH (08:54)
[2017-07-09] MEDS: COUMADIN PO SCH (08:54)
[2017-07-09] MEDS: SINGULAIR PO SCH (08:54)
[2017-07-09] MEDS: LAMICTAL PO SCH ×2 (08:54→21:38)
[2017-07-09] MEDS: LIORESAL PO SCH ×3 (08:55→21:39)
--- NOTE | 2017-07-09 09:47 | CONSULTATION ---
DATE OF CONSULTATION: 07/09/2017 CONCLUSION: The patient is admitted to the hospital with a gram-negative bacteremia. I think this originates from his urinary tract infection. RECOMMENDATIONS: I agree with treating the patient with Zosyn pending culture results. I have discontinued vancomycin. I also plan to order a renal ultrasound and an abdominal x-ray. DISCUSSION: The patient is unable to provide a history. His mother provides a history. He had been doing pretty well at home until he had some cloudy urine and was a little lethargic. Two blood cultures were drawn as an outpatient, one of which is growing a gram- negative nancy. The patient's CBC shows a white count of 8960, hemoglobin 13, platelet count 162, 000. Creatinine is 1. GFR is greater than 60. Liver function studies are normal. On the , 2 blood cultures were drawn. One of them is growing gram-negative nancy. Two blood cultures have been ordered for today. Urinalysis showed white cells and bacteria. Liver function studies are normal. PAST MEDICAL HISTORY: Positive for severe cerebral palsy which has caused the patient to have contractures. He is bedridden. I have not seen him talk. He has extreme spasticity. He is unable to care for himself. He can eat, however. The patient's past medical history is positive for seizure disorder, spastic cerebral palsy, gastroesophageal reflux disease, renal calculi and bronchiectasis. PAST SURGICAL HISTORY: Positive for scoliosis for which he had rods placed in his back. A suprapubic catheter has been placed as has a tracheostomy. Patient has undergone lithotripsy. A Mccauley catheter has been removed and a baclofen pump also has been removed. The patient's rods that were put in were removed also. FAMILY HISTORY: Positive for hypertension, myocardial infarction and cancer. SOCIAL HISTORY: The patient lives with his family. They take total care of him. He does not smoke cigarettes, drink alcoholic beverages or use drugs. There is a dog as a pet where he lives. ALLERGIES: The only drug allergy is to Lasix. HOME MEDICATIONS: 1. Coumadin. 2. MiraLAX. 3. Zosyn. 4. Singulair. 5. Lamictal. 6. Neurontin. 7. Jessie. 8. Colace. 9. Klonopin. 10. Baclofen. PHYSICAL EXAMINATION: Vital Signs: Temperature is 97 degrees, pulse 89, respirations 16, blood pressure 108/63. General: This is a somewhat malnourished appearing young male. He is in no acute distress. Head, eyes, ears, nose, and throat: No drainage noted from the nose or ears. Neck: Patient has a tracheostomy in place. Abdomen: Soft and nontender. There is a suprapubic tube in place. The tube site is not erythematous or swollen. Neurologic: The patient's eyes are open. He did not talk. While I was in there, he did not follow request to move his extremities. Integument: No rash noted. Thank you for the consult. cc: Shilo Bush MD MTDD
--- NOTE | 2017-07-09 10:20 | Diag Imaging Result Doc PS360 ---
EXAM: KUB ABDOMEN HISTORY: UTI TECHNIQUE: Portable supine COMPARISON: 05/30/2017 FINDINGS: There is a large amount of stool in the rectum and distal colon. Bowel loops are nondilated. No organomegaly. Severe scoliosis. Long-standing arthritic changes to the right hip. IMPRESSION: Fecal impaction with constipation Electronically signed by Emerson Means 07/09/2017 10:18 AM
--- NOTE | 2017-07-09 12:14 | HISTORY AND PHYSICAL ---
PRIMARY CARE PROVIDER: Matthieu Sheffield MD CHIEF COMPLAINT: Positive blood culture called tonight. HISTORY OF PRESENT ILLNESS: This is a 26-year-old male with a history of cerebral palsy. He has a tracheostomy and suprapubic catheter. [facility] after receiving a telephone call for the on-call physician for Dr. Sheffield, his primary care provider, saying that he had positive blood cultures and to go to [facility] Emergency Room. Apparently, the patient had lab work earlier on the which included blood cultures which returned with gram-negative nancy positive. He did have a mildly elevated white blood cell count at 12.95 and he had bandemia noted on his CBC. His chemistry panel showed mild elevation in his AST and ALT at 57 and 54 respectively. A chest x-ray is pending. He was last admitted on 05/25/2017 with hematuria and stones. He was then treated by Dr. Shilo Bush secondary to chronic urinary tract infection. He will be admitted for further evaluation and treatment. PAST MEDICAL HISTORY: 1. Seizure disorder. 2. Cerebral palsy. 3. GERD. 4. Kidney stones. PREVIOUS SURGICAL HISTORY: 1. Scoliosis will nancy insertion and subsequent nancy removal secondary to infection. 2. Suprapubic catheter. 3. Tracheostomy. 4. Lithotripsy. 5. Fundoplication. 6. Right-sided Port-A-Cath placement. FAMILY HISTORY: Mother has hypertension. SOCIAL HISTORY: Lives with family. His mother is at the bedside and very attentive. No tobacco, alcohol or illicit drug use. ALLERGIES: Latex and chlorhexidine. HOME MEDICATIONS: 1. Baclofen 40 mg p.o. t.i.d. 2. Klonopin 0.5 mg p.o. daily. 3. Klonopin 1 mg p.o. at bedtime. 4. Colace 100 mg p.o. b.i.d. 5. Jessie 60 mg p.o. daily. 6. Neurontin 100 mg p.o. q.a.m. 7. Neurontin 300 mg p.o. at bedtime. 8. Lamictal 100 mg p.o. daily. 9. Lamictal 150 mg p.o. at bedtime. 10. Singular 10 mg p.o. daily. 11. MiraLAX 17 g p.o. daily. 12. Coumadin 1 mg p.o. daily. REVIEW OF SYSTEMS: Fourteen point review of systems conducted with the mother at the bedside. Positive for fever and chills over the last 5 days. Positive for change in urine color that started early yesterday. Negative for pain or increased sputum production. All other pertinent positives listed above in the HPI. All other systems reviewed with mother and found to be negative. PHYSICAL EXAMINATION: VITAL SIGNS: Temperature 97.6 degrees, pulse 81, respirations 20, blood pressure 125/78, oxygen saturation 94% on room air. GENERAL: Awake and alert. Smiles. Seems to understand questions. Mother at bedside. No acute distress. HEENT: Head is atraumatic. Pupils are equal, round, reactive to light. Sclerae is anicteric. Conjunctivae is pink. Oral mucosa is moist. NECK: Supple. No JVD. Tracheostomy appears to be in place. CARDIAC: S1-S2 appreciated. Regular rhythm. No murmurs, gallops, rubs. LUNGS: Clear to auscultation bilaterally. No rhonchi, wheezes or rales. ABDOMEN: Soft, nondistended, nontender. Bowel sounds present in all 4 quadrants. Normoactive. No pulsatile mass. No organomegaly. Suprapubic catheter noted. SKIN: Warm, dry and intact. Tracheostomy and suprapubic catheter noted no signs of infection at insertion sites. Right-sided Port-A-Cath also in place and has been accessed with I believe a 3/4 inch Rowley needle. DIAGNOSTIC DATA: A chest x-ray is pending. Urinalysis is pending. CBC and CMP from 10:10 a.m. on 07/08/2017 as follows: WBC 12.95, hemoglobin 14.7, hematocrit 44.2, platelet count 206,000, band neutrophils 14. Sodium 140, potassium 4.2, chloride 102, carbon dioxide 24, BUN 21, creatinine 1.2, glucose 98. ASSESSMENT AND PLAN: 1. Probable bacteremia with positive blood culture. Patient came into the emergency room after being called with a positive blood culture which was gram-negative rods. We will place the patient on Zosyn at this time. We will also start vancomycin as he has been in and out of the hospital. Previous urine cultures I believe have grown Klebsiella and Pseudomonas. I believe he has also had yeast and enterococcus in the past. We will also consult Dr. Shilo Bush for further antibiotic selection. We will give mild fluid rehydration and recollect blood cultures. 2. Spastic cerebral palsy. Continue baclofen and other muscle relaxants. 3. Seizure disorder. Continue Lamictal and Klonopin. 4. Gastroesophageal reflux disease, aware. 5. Chronic anticoagulation on Coumadin secondary to Port-A-Cath placement. INR daily. Continue Coumadin therapy. Further recommendations per patient clinical course. Dictated by MOIRA Rosenberg for Talat Apple MD cc: MOIRA Rosenberg MD Hiteshri S. Bhavsar, MD
--- NOTE | 2017-07-09 14:46 | Diag Imaging Result Doc PS360 ---
EXAM: US RENAL 2 (RETROPER) COMPLETE INDICATION: UTI TECHNIQUE: COMPARISON: 06/24/2015 FINDINGS: The study is limited due to inability of the patient to maintain of breath held and to be adequately positioned. No renal stones are identified. However, there are clearly renal stones involving both kidneys on a fairly recent CT dated 05/26/2017. There is no evidence of hydronephrosis. There is a 2.7 cm right renal cyst. The right kidney measures 8.9 cm and the left kidney measures 8.5 cm in the greatest longitudinal axes. Right renal cortex measures 1 cm in the left renal cortex measures 0.5 cm in thickness. There is an indwelling suprapubic bladder catheter. The bladder is nondistended. IMPRESSION: Small simple right renal cyst as described. Essentially unremarkable renal ultrasound, otherwise. Please see above discussion. Electronically signed by Andres Erwin 07/09/2017 2:43 PM
[2017-07-09] MEDS ORDERED: DULCOLAX PR PRN (15:48)
--- NOTE | 2017-07-09 16:18 | PROGRESS NOTE ---
DATE: 07/09/2017 SUBJECTIVE: Today, Mr. Ruiz continues to be stable. According to the mother, she thinks he probably ran another temperature. OBJECTIVE: Vital Signs: Blood pressure is 101/58, pulse of 93, respiration is 16, temperature 97.7 degrees. General: Mr. Ruiz is a 26-year-old, male, chronically ill and sick- looking. He is in bed. He does not seem to be in any remarkable distress. HEENT: Mucosa is pink and moist. Anicteric. Acyanotic. Neck supple. The tracheostomy tube in place. Chest: Air entry is bilaterally reduced. No crepitations. Abdomen is soft. There is a suprapubic catheter in place, and there is an old right lower abdomen surgical scar. Extremities: No pedal edema. GYROSCOPE REPAIRER: Patient is awake and nonverbal and has hypertrophic joints. His features are very consistent with spastic cerebral palsy. LABORATORY DATA: Laboratory data has been reviewed. WBC is 8.96. Hemoglobin is 13.0. Chemistries reviewed and completely negative. So far, blood cultures, which was done yesterday is growing gram-negative rods, 1 out of 2 which we think is coming from the urine. CURRENT MEDICATIONS: 1. Baclofen. 2. Klonopin. 3. Gabapentin. 4. Vancomycin per pharmacy protocol. 5. Zosyn. ASSESSMENT: 1. Gram-negative nancy bacteremia. We think the source is from the urine tract. 2. Indwelling suprapubic catheter. 3. History of spastic cerebral palsy. 4. History of seizure disorder. 5. Patient on chronic Coumadin therapy. 6. Severe constipation/obstipae will addtion. I think this is likely secondary to the fact that the patient is not very mobile. He has been started on MiraLAX. I would also add Dulcolax rectal to help with the constipation. So, in general, Mr. Ruiz is clinically stable. We are going to be awaiting the I and D and sensitivity of the gram-negative nancy that is growing in his blood. There is another blood culture which was done today which, so far, has not shown anything yet. cc: MD EMELINA Loya
[2017-07-10] MEDS: ZOSYN 3.375 GM in NS 50 ML IV SCH ×2 (04:07→08:43)
[2017-07-10] MEDS: NS 1,000 ML IV SCH ×4 (04:08→22:15)
[2017-07-10] MEDS: VANCOMYCIN 1,150 MG in NS 250 ML IV SCH (05:02)
[2017-07-10 05:57] LABS: MANUAL DIFF NEEDED? NO
[2017-07-10 05:59] LABS: BASO% 0.5 % (0.0-0.8); EOS# 0.35 X1000 (0.0-0.7); EOS% 5.4 % (0.0-10.0); HEMOGLOBIN 12.6 g/dL (14.0-18.0); IMM GRAN# 0.02 X1000 (0.0-0.04); IMM GRAN% 0.3 % (0.0-0.5); LYMPH# 0.95 X1000 (1.2-3.4); LYMPH% 14.6 % (20.5-51.1); MCH 29.5 PG (27-31); MCHC 33.2 g/dL (33-37); MONO% 12.3 % (1.7-9.3); MPV 9.5 FL (7.4-10.4); NEUT% 66.9 % (42.2-75.2); PLT 200 X1000 (130-400); RBC 4.27 XMIL (4.7-6.1)
[2017-07-10 06:09] LABS: INR 0.98; PROTIME 10.3 Seconds (9.2-11.7)
[2017-07-10 06:16] LABS: AGAP 13; BUN 13 mg/dL (8-22); CALCIUM 8.3 mg/dL (8.8-10.2); CHLORIDE 106 mmol/L (98-107); COSMO 281; SODIUM 141 mmol/L (136-145); TCO2 22 mmol/L (25-35)
[2017-07-10] MEDS: LAMICTAL PO SCH ×2 (08:46→22:17)
[2017-07-10] MEDS: COUMADIN PO SCH (08:46)
[2017-07-10] MEDS: SINGULAIR PO SCH (08:46)
[2017-07-10] MEDS: MIRALAX PO SCH (08:46)
[2017-07-10] MEDS: COLACE PO SCH ×2 (08:46→22:17)
[2017-07-10] MEDS: KLONOPIN PO SCH ×2 (08:46→22:16)
[2017-07-10] MEDS: LIORESAL PO SCH ×3 (08:47→22:17)
[2017-07-10] MEDS: NEURONTIN PO SCH ×2 (08:47→22:16)
[2017-07-10] MEDS: ALLEGRA PO SCH (08:47)
[2017-07-10] MEDS ORDERED: ALBUTEROL NEB INH PRN (11:15)
[2017-07-10] MEDS ORDERED: DUONEB (A & A) INH PRN (13:24)
[2017-07-10] MEDS ORDERED: NS 500 ML IV ONE (13:28)
[2017-07-10 14:11] LABS: ALLEN TEST YES; BLOOD TYPE ARTERIAL; DRAW SITE L RADIAL; METHB 1.1 % (0.0-1.5); O2(CT) 15.6 mL/dL (15.0-23.0); PCO2(98.6) 40 mmHg (35-45); PO2(98.6) 77 mmHg (60-100); SAMPLE BLOOD; SAO2 98.5 % (95.0-100.0); THB 11.6 g/dL (11.5-17.4)
[2017-07-10 14:12] LABS: MODALITY COOL AEROSOL
--- NOTE | 2017-07-10 14:15 | PROGRESS NOTE ---
DATE: 07/10/2017 SUBJECTIVE: As per family, patient initially in the morning was fine but then he started having shortness of breath so the O2 saturation started dropping to the 80s without oxygen and also systolic blood pressure was 90. OBJECTIVE: Vital Signs: Temperature 97.9 degrees, heart rate 76, respiratory rate 18, blood pressure 116/70, O2 saturation 95% on room air. This set of labs were checked at 7:35 a.m. today. General: This is a 26-year-old male chronically ill-looking lying in bed in no acute distress. HEENT: Head is normocephalic, atraumatic. Mucous membranes moist. Neck: Supple. Tracheostomy tube on place. Cardiovascular: S1, S2 heard. No murmurs, gallops, or rubs. Regular rate and rhythm. Respiratory: Air entry bilateral reduced, no crepitations. Abdomen: Soft. There is a suprapubic catheter in place. Bowel sounds present. No organomegaly. There is an old right lower abdomen surgical scar. Extremities: No pedal edema. ATTENDANT CHILD ACTIVITY: Patient awake and nonverbal and has hypertrophic joints. His features are very consistent with a spastic cerebral palsy. LABORATORY DATA: White cell count 6.50, hemoglobin 12.6, hematocrit 38.0, platelets 200,000, BMP unremarkable. ASSESSMENT AND PLAN: 1. Gram negative bacteremia. I think the source infection is the urinary tract because there is also growing gram-negative rods. At this time patient is on vancomycin and Zosyn. Will continue with same management. Dr. Bush from infectious disease has been consulted. I will leave to him the management of antibiotics. Today we were called by nurse that the blood pressure started going down so we have increased the rate of IV fluids normal saline from 80 to 150. Will continue with same antibiotic therapy and for possibility of ESBL infection I prefer to change Zosyn and place this patient on meropenem. 2. Infectious encephalopathy. Patient mental status has been worse this morning and I think this because of the infection but in any case I prefer to check a CT of the head. Because he was also having some labor respiration this morning according to nursing staff will do a CT of the chest as well. 3. History of spastic cerebral palsy aware. Will continue home medication. 4. History of seizure disorder. Will continue home medication. 5. Patient is on chronic Coumadin therapy. Will continue with same treatment. cc: Marlon Galvez MD
--- NOTE | 2017-07-10 15:09 | Diag Imaging Result Doc PS360 ---
EXAM: CT HEAD W/O CONTRAST TECHNIQUE: Dose reduction protocol was performed. INDICATION: ams COMPARISON: 01/23/2013 FINDINGS: There is a stable irregular ventricular contour and stable mild ventriculomegaly. This appears to be likely congenital or developmental, perhaps due to a neuronal migration disorder. There is no evidence of acute hydrocephalus. There is no definite acute infarct given the limited sensitivity of CT versus MRI. There is no discrete intracranial mass, mass effect, or intracranial hemorrhage. There is mild left sphenoid sinus mucosal disease. Surrounding soft tissues and bony structures are essentially unremarkable, otherwise. IMPRESSION: Stable chronic intracranial changes but no evidence of acute intracranial pathology. Electronically signed by Andres Erwin 07/10/2017 3:07 PM
--- NOTE | 2017-07-10 15:27 | Diag Imaging Result Doc PS360 ---
EXAM: CT THORAX W/CONTRAST INDICATION: suspect aspiration pna TECHNIQUE: Dose reduction protocol was used. COMPARISON: 12/17/2014 FINDINGS: There is a dense airspace consolidation at the right lung base mainly in the right lower lobe consistent with pneumonia. There is much milder patchy vaguely nodular consolidation in the left upper and left lower lobes. There are trace layering pleural fluid collections bilaterally. There is extensive mucus plugging involving branches of the right mainstem bronchus leading to the right lower lobe and the dense consolidation. There is probably at least some component of atelectasis at the right lung base as well. A tracheostomy tube is in place. There are calcified mediastinal and left hilar lymph nodes indicating prior granulomatous disease. The heart is not enlarged. There are a few prominent noncalcified lymph nodes in the mediastinum and right hilum there are probably reactive. IMPRESSION: 1.Dense consolidation at the right lung base consistent with pneumonia. 2.Much milder patchy nodular consolidation on the left. 3.Extensive mucus plugging involving branches of the right mainstem bronchus leading to the right lower lobe and the dense consolidation. Electronically signed by Andres Erwin 07/10/2017 3:25 PM
[2017-07-10] MEDS: DUONEB (A & A) INH SCH ×3 (15:53→23:27)
[2017-07-10] MEDS: MERREM 1 GM in NS 50 ML IV SCH ×2 (16:24→22:20)
[2017-07-11] MEDS: DUONEB (A & A) INH SCH ×6 (03:47→23:20)
[2017-07-11 05:43] LABS: MANUAL DIFF NEEDED? NO
[2017-07-11 05:47] LABS: BASO% 0.6 % (0.0-0.8); EOS# 0.23 X1000 (0.0-0.7); EOS% 4.2 % (0.0-10.0); HEMATOCRIT 35.8 % (42.0-52.0); HEMOGLOBIN 11.7 g/dL (14.0-18.0); IMM GRAN# 0.02 X1000 (0.0-0.04); IMM GRAN% 0.4 % (0.0-0.5); LYMPH# 1.53 X1000 (1.2-3.4); LYMPH% 28.1 % (20.5-51.1); MCH 29.3 PG (27-31); MCHC 32.7 g/dL (33-37); MCV 89.5 FL (81-99); MONO# 0.42 X1000 (0.11-0.59); MONO% 7.7 % (1.7-9.3); MPV 9.4 FL (7.4-10.4); PLT 226 X1000 (130-400)
[2017-07-11] MEDS: MERREM 1 GM in NS 50 ML IV SCH ×4 (05:53→23:53)
[2017-07-11] MEDS: NS 1,000 ML IV SCH ×4 (05:53→23:25)
[2017-07-11 06:01] LABS: INR 0.96; PROTIME 10.1 Seconds (9.2-11.7)
[2017-07-11 06:05] LABS: AGAP 10; BUN 8 mg/dL (8-22); CALCIUM 8.9 mg/dL (8.8-10.2); CHLORIDE 107 mmol/L (98-107); COSMO 281; POTASSIUM 3.9 mmol/L (3.5-5.1); SODIUM 142 mmol/L (136-145); TCO2 25 mmol/L (25-35)
[2017-07-11] MEDS: VANCOMYCIN 1,150 MG in NS 250 ML IV SCH (06:48)
[2017-07-11] MEDS: MIRALAX PO SCH (08:36)
[2017-07-11] MEDS: NEURONTIN PO SCH ×2 (08:37→20:57)
[2017-07-11] MEDS: COLACE PO SCH ×2 (08:37→20:50)
[2017-07-11] MEDS: ALLEGRA PO SCH (08:37)
[2017-07-11] MEDS: COUMADIN PO SCH (08:37)
[2017-07-11] MEDS: SINGULAIR PO SCH (08:37)
[2017-07-11] MEDS: KLONOPIN PO SCH ×2 (08:37→20:50)
[2017-07-11] MEDS: LAMICTAL PO SCH ×2 (08:37→20:49)
[2017-07-11] MEDS: LIORESAL PO SCH ×3 (08:37→21:00)
[2017-07-11] MEDS: ZOSYN 3.375 GM in NS 50 ML IV SCH ×3 (11:48→23:26)
[2017-07-11] MEDS ORDERED: LEVOPHED 8 MG in D5 1/2 NS 250 ML IV SCH (14:00)
--- NOTE | 2017-07-11 15:41 | PROGRESS NOTE ---
DATE: 07/11/2017 SUBJECTIVE: Patient's family reports that he is feeling fine. No more episodes of O2 drops. No acute issues as per nursing overnight. OBJECTIVE: Vital Signs: Temperature 98.7 degrees, heart rate 72, respiratory rate 16, blood pressure 109/61, O2 saturation 98% on 5 L tracheostomy collar. General Examination: This is a 26- year-old, male, chronically ill-looking, lying in bed, in no acute distress. HEENT: Head is normocephalic, atraumatic. Mucous membranes dry. Neck: Supple. Tracheostomy tube in place. Cardiovascular: S1, S2 heard. No murmurs, gallops, or rubs. Regular rate and rhythm. Respiratory: Clear bilaterally to auscultation. No work of breathing or using accessory muscles. There is a port in the right side of the chest with no signs of erythema. Abdomen: Soft with a suprapubic catheter in place. Bowel sounds present. No organomegaly. There is an old right lower abdomen surgical scar. Extremities: No pedal edema. CRECHE ATTENDANT: Patient is awake. Nonverbal. Features consistent with spastic cerebral palsy. Has hypertrophic joints. LABORATORY DATA: White cell count 5.45, hemoglobin 11.5, hematocrit 35.8, platelets 26,000. BUN is okay. ASSESSMENT AND PLAN: 1. Pseudomonas urinary tract infection/Pseudomonas bacteremia. This is what the blood culture and urine culture shows. Yesterday initially we had replaced Zosyn for meropenem considering the possibility of ESBL E. coli. The blood culture and urine culture obtained today shows Pseudomonas aeruginosa sensitive to Zosyn, so we have restarted Zosyn. Dr. Bush from infectious disease is following this patient. We will leave the decision to change antibiotics to him. 2. Infection encephalopathy. This patient is more calmed down today. We will continue with same management. 3. History of spastic cerebral palsy. We are aware of this. Will continue home medications. 4. History of seizure disorder. We will continue with home medications. 5. The patient is on chronic anticoagulation. We will continue with the same treatment. 6. Community-acquired pneumonia. Patient had a CT of the chest that shows pneumonia so we will continue with the same medications. cc: Marlon Galvez MD
--- NOTE | 2017-07-11 18:15 | CONSULTATION ---
DATE OF CONSULTATION: 07/11/2017 REFERRING PHYSICIAN: Carlos Aviles MD Thank you very much for asking me to see this very pleasant 26-year-old male. I am pleased to assist in his care. DIAGNOSIS: 1. Cerebral palsy with trach dependency. 2. Healthcare-associated pneumonia right lower lung. 3. Pseudomonas urinary tract infection. 4. Malnutrition. 5. Left lower lobe nodule. RECOMMENDATIONS: I agree with the broad-spectrum antibiotics with the beta lactams to cover Pseudomonas as well as the vancomycin. We will give him bronchodilators for his pneumonia, supplemental oxygen, IV fluid for the dehydration, hypotension. I do not believe any specific therapy should be done on the left lower lobe nodule other than a repeat CAT scan in about 6 months. I believe this is likely to be fluid/pseudotumor in the left lower lung. I will follow closely along with you. HISTORY: This very pleasant, unfortunate 26-year-old male white has had cerebral palsy and has been under the care of his family for his entire lifetime. He has developed increasing lethargy, weakness, inability to take p.o. and talk and subsequently presented to the emergency room where he was found to have a urinary tract infection as well as a right lower lobe pneumonia. He is admitted to the hospital. I am consulted to assist in his care. He has had a trach for about 3 years because of respiratory weakness and inability to clear his secretions. The mother has noticed a change in the color of his secretions recently. REVIEW OF SYSTEMS: Positive for weakness, weight loss and some anorexia. No other ENT symptoms other than the trach. No eye symptoms noted. The respiratory symptoms are mentioned. No cardiac symptoms. He does not have a G-tube. He has no nausea, vomiting. No hematuria, polyuria, nocturia. He does have a suprapubic catheter. No joint or muscle pain, stiffness or swelling symptoms. Neurologically he has seizures and has no focality, however, other than the cerebral palsy. FAMILY HISTORY: Noncontributory. SOCIAL HISTORY: He has a very attentive family that is assisting at the bedside. PAST SURGERY HISTORY: Positive for scoliosis. He has suprapubic catheter as well as a tracheostomy. He has had previous lithotripsy in the past. He has got a right-sided Port-A-Cath. FAMILY HISTORY: Positive for hypertension as well as cardiovascular disease. PHYSICAL EXAMINATION: Vital signs: This kind young man shows a blood pressure of 195/52 with a pulse 79, respirations 18, his temperature is 98.6 degrees. HEENT: Reveals a gaze to the left and gaze to the right. There is tracheostomy in place. It is clean. Neck: Supple. There is no palpable lymphadenopathy. Chest: Reveals crackles in both bases with some prolongation of the expiratory phase. There are crackles and rhonchi in both bases. Excursions are symmetrical. Cardiac: Reveals a regular rhythm without an appreciable murmur or rub. Abdomen: Soft. Skin: Warm and dry. Neurological: He is contracted. He does have no focal seizures, however. He does not make any purposeful communications today. LABORATORY AND IMAGING: The sodium is 149, potassium 3.9, chloride 107, CO2 24, BUN 8, creatinine 1.4, glucose of 87. ABG shows a 7.40 pH with a 40 CO2 and a 77 O2. His white count is 5400, with hemoglobin of 11.7, hematocrit of 35.9, and his platelets are 226,000. He has a urine that has Pseudomonas resistant to Levaquin, sensitive to beta lactams as well as meropenem. The chest CT demonstrate infiltrate in the right lower lung with effusion. There is a small soft tissue nodule in the left lower lung, possibly in the major fissure.
[2017-07-12] MEDS: DUONEB (A & A) INH SCH ×6 (03:30→23:35)
[2017-07-12] MEDS: ZOSYN 3.375 GM in NS 50 ML IV SCH ×4 (04:06→22:29)
[2017-07-12 05:33] LABS: MANUAL DIFF NEEDED? NO
[2017-07-12 05:55] LABS: BASO% 0.4 % (0.0-0.8); EOS# 0.29 X1000 (0.0-0.7); EOS% 5.3 % (0.0-10.0); HEMATOCRIT 34.4 % (42.0-52.0); HEMOGLOBIN 11.1 g/dL (14.0-18.0); IMM GRAN# 0.04 X1000 (0.0-0.04); IMM GRAN% 0.7 % (0.0-0.5); LYMPH# 1.35 X1000 (1.2-3.4); LYMPH% 24.8 % (20.5-51.1); MCH 29.2 PG (27-31); MCHC 32.3 g/dL (33-37); MCV 90.5 FL (81-99); MONO# 0.33 X1000 (0.11-0.59); MONO% 6.1 % (1.7-9.3); MPV 9.3 FL (7.4-10.4); NEUT% 62.7 % (42.2-75.2); PLT 217 X1000 (130-400)
[2017-07-12 06:03] LABS: AGAP 11; BUN 6 mg/dL (8-22); CALCIUM 8.3 mg/dL (8.8-10.2); CHLORIDE 108 mmol/L (98-107); COSMO 284; POTASSIUM 3.9 mmol/L (3.5-5.1); SODIUM 144 mmol/L (136-145); TCO2 25 mmol/L (25-35)
[2017-07-12] MEDS: MERREM 1 GM in NS 50 ML IV SCH ×2 (06:04→14:13)
[2017-07-12 06:28] LABS: INR 0.99; PROTIME 10.4 Seconds (9.2-11.7)
--- NOTE | 2017-07-12 07:42 | Diag Imaging Result Doc PS360 ---
CHEST-1 VIEW - 07/12/2017 INDICATION: RLL pneumonia TECHNIQUE: COMPARISON: 07/09/2017 FINDINGS: Stable tracheostomy tube and right chest port. Stable low lung volumes. Slight worsening hazy infiltrate or atelectasis at the right lower lobe as seen by worsening visualization of the right hemidiaphragm. The left lung remains grossly clear. IMPRESSION: Slight worsening from prior. Electronically signed by Vladimir Frias 07/12/2017 7:40 AM
[2017-07-12] MEDS: KLONOPIN PO SCH ×2 (08:08→21:14)
[2017-07-12] MEDS: NS 1,000 ML IV SCH ×3 (08:08→16:05)
[2017-07-12] MEDS: MIRALAX PO SCH (08:08)
[2017-07-12] MEDS: LAMICTAL PO SCH ×2 (08:09→21:15)
[2017-07-12] MEDS: COUMADIN PO SCH (08:09)
[2017-07-12] MEDS: COLACE PO SCH ×2 (08:09→21:14)
[2017-07-12] MEDS: NEURONTIN PO SCH ×2 (08:09→21:14)
[2017-07-12] MEDS: SINGULAIR PO SCH (08:09)
[2017-07-12] MEDS: LIORESAL PO SCH ×3 (08:44→21:15)
[2017-07-12] MEDS: ALLEGRA PO SCH (08:45)
--- NOTE | 2017-07-12 09:51 | PROGRESS NOTE ---
DATE: 07/12/2017 SUBJECTIVE: As per nursing staff, the patient, who had a low blood pressure on the floor, that was the reason why he was transferred to the unit. Blood pressure has been stable, in the range of 100-120 all the time, so vasopressor has not been started. No fever or chills reported. No other issues overnight. OBJECTIVE: Vital Signs: Temperature 97.5 degrees, heart rate 92, respiratory rate 22, blood pressure 126/74. O2 saturation 96% on tracheostomy collar at 80 L/minute. General Examination: This is a 26-year-old male, chronically ill-looking and frail, lying in bed, in no acute distress. HEENT: Head is normocephalic, atraumatic. Mucous membranes very dry. Neck: Supple. Tracheostomy tube in place. Cardiovascular Examination: S1, S2 heard. No murmurs, gallops, or rubs. Regular rate and rhythm. Respiratory Examination: Coarse breath sounds in both bases. Patient is not using any accessory muscles or having work of breathing. There is a port on the right sign of the chest with no signs of erythema. Abdomen: Soft. There is a suprapubic catheter in place. Bowel sounds present. No organomegaly. There is also an old right lower abdominal surgical scar. No signs of peritoneal irritation. Extremities: No pedal edema. The patient has hypertrophic joint with marked spasticity. LEAD PERFORMANCE SUPPORT ANALYST: Patient is awake, nonverbal. Does not follow commands. Features consistent with spastic cerebral palsy. LABORATORY DATA: White cell count 5.44, hemoglobin 11.1, hematocrit 34.4, platelets 217,000. BMP unremarkable. ASSESSMENT AND PLAN: 1. Healthcare associated pneumonia. Patient's oxygen is maintaining at 8 L of oxygen by tracheostomy tube. The patient is stable and receiving DuoNeb every 4 hours and every 2 hours p.r.n. We will continue with the same management. 2. Asthma. 3. Pseudomonas urinary tract infection/Pseudomonas bacteremia, is what blood culture and urine culture shows. Currently patient is on Zosyn and meropenem. Dr. Bush, from Infectious Disease, is following this patient and will leave the decision to change antibiotics to him. Help appreciated. 4. Infectious encephalopathy. Patient is a little bit more awake in comparing with yesterday, according to the diagnostic medical sonographer. We will continue monitoring this patient closely here on the unit. 5. Left lower lobe nodule. Pulmonary has been consulted and basically the recommendation is to repeat the CT scan in about 6 months. It could be fluid or pseudotumor in the left lower lobe. 6. Malnutrition. Patient will continue with his diet and also Ensure. 7. Spastic cerebral palsy. Aware. 8. Seizure disorder. We will continue with home medications. This patient was admitted to the hospital because apparently the family was called by the ER doctor, that one of blood cultures that they priscilla turned positive for gram-negative bacteria. After he was admitted to the hospital we confirmed pseudomonas aeruginosa urinary tract infection and bacteremia. We have consulted Dr. Bush from Infectious Disease. At this time, the patient was transferred to the intensive care unit because of one reading of low blood pressure 80/60s. Transferred to intensive care unit here. The blood pressure was in the range of 100-120. No vasodepressor has been started yet. We will continue with the same medication. We will keep this patient 1 more day here in the unit for better monitoring of blood pressures and if the blood pressure is okay, we will transfer this patient back to a regular floor. cc: Marlon Galvez MD
[2017-07-12] MEDS: D5 1/2 NS 1,000 ML IV SCH (18:26)
--- NOTE | 2017-07-12 19:14 | PROGRESS NOTE ---
DATE: 07/12/2017 PRESENT ILLNESS: The patient is admitted with pneumonia and urinary tract infection. MEDICATIONS: The patient was on Zosyn and meropenem was added a day later. PHYSICAL EXAMINATION: Vital Signs: Temperature is 99.4 degrees, pulse 107, respirations 20, blood pressure 144/93. General: This is a chronically ill, malnourished appearing young male. He is in no acute distress. Neck: Patient has a tracheostomy in place. Lungs : Bilateral rhonchi. Cardiovascular: Regular heart rate. Abdomen: Soft. Patient has a suprapubic catheter in place. Neurologic: Patient is awake. LAB AND X-RAY: Chest x-ray shows slight worsening in the right lower lobe infiltrate and/or atelectasis. Blood cultures are sterile. Urine grew Pseudomonas. Sputum grew normal aleksandr. CBC shows a white count of 5440, hemoglobin 11.1, and platelet count of 217, 000. Creatinine 0.8. GFR is greater than 60. ASSESSMENT AND PLAN: Patient has pneumonia and Pseudomonas urinary tract infection. I plan to continue with Zosyn and discontinue meropenem. COMORBIDITIES: The patient has severe cerebral palsy. He has a tracheostomy in place. cc: Shilo Bush MD MTDD
[2017-07-13] MEDS: DUONEB (A & A) INH SCH ×5 (02:45→23:28)
[2017-07-13] MEDS: ZOSYN 3.375 GM in NS 50 ML IV SCH ×4 (05:21→22:48)
[2017-07-13 06:39] LABS: MANUAL DIFF NEEDED? NO
[2017-07-13 06:42] LABS: BASO% 0.7 % (0.0-0.8); EOS# 0.38 X1000 (0.0-0.7); EOS% 6.5 % (0.0-10.0); HEMATOCRIT 36.9 % (42.0-52.0); HEMOGLOBIN 12.3 g/dL (14.0-18.0); IMM GRAN# 0.06 X1000 (0.0-0.04); LYMPH# 1.36 X1000 (1.2-3.4); LYMPH% 23.2 % (20.5-51.1); MCH 29.5 PG (27-31); MCHC 33.3 g/dL (33-37); MCV 88.5 FL (81-99); MONO# 0.37 X1000 (0.11-0.59); MONO% 6.3 % (1.7-9.3); NEUT% 62.3 % (42.2-75.2); PLT 257 X1000 (130-400); RBC 4.17 XMIL (4.7-6.1)
[2017-07-13 06:51] LABS: PROTIME 10.5 Seconds (9.2-11.7)
[2017-07-13 07:09] LABS: AGAP 11; BUN 5 mg/dL (8-22); CALCIUM 8.5 mg/dL (8.8-10.2); CHLORIDE 107 mmol/L (98-107); COSMO 285; POTASSIUM 3.9 mmol/L (3.5-5.1); SODIUM 145 mmol/L (136-145); TCO2 27 mmol/L (25-35)
--- NOTE | 2017-07-13 07:11 | Diag Imaging Result Doc PS360 ---
EXAM: CHEST-PORTABLE HISTORY: abnormal exam TECHNIQUE: AP portable semierect at 0520 COMMENT: There is some hazy opacity over the left lower lobe which was not present on 07/12/2017. There has been some clearing of the right base however. IMPRESSION: Waxing and waning pulmonary edema. Electronically signed by Dio Patel 07/13/2017 7:09 AM
[2017-07-13] MEDS: COLACE PO SCH ×2 (08:02→22:39)
[2017-07-13] MEDS: LIORESAL PO SCH ×3 (08:02→22:39)
[2017-07-13] MEDS: D5 1/2 NS 1,000 ML IV SCH ×2 (08:02→22:40)
[2017-07-13] MEDS: LAMICTAL PO SCH ×2 (08:02→22:47)
[2017-07-13] MEDS: SINGULAIR PO SCH (08:02)
[2017-07-13] MEDS: COUMADIN PO SCH (08:02)
[2017-07-13] MEDS: MIRALAX PO SCH (08:02)
[2017-07-13] MEDS: NEURONTIN PO SCH ×2 (08:03→22:39)
[2017-07-13] MEDS: KLONOPIN PO SCH ×2 (08:03→22:39)
[2017-07-13] MEDS: ALLEGRA PO SCH (09:17)
--- NOTE | 2017-07-13 11:53 | PROGRESS NOTE ---
DATE: 07/13/2017 SUBJECTIVE: As per nursing staff, as soon as this patient got transferred to the intensive care unit, blood pressure has been in the range of 100-120 all the time until today. So, vasopressin has never been started. No fever or chills reported. No acute issues overnight as per nursing staff. OBJECTIVE: Vital Signs: Temperature 97.6 degrees, heart rate 67, respiratory rate 12, blood pressure 121/73, O2 saturation 92% on tracheostomy collar, oxygen 5 L/minute. General Examination: This is a 26-year-old, male, chronically ill-looking and frail, lying in bed in no acute distress. HEENT: Head is normocephalic, atraumatic. Anicteric sclerae and pale conjunctivae. Mucous membranes dry. Neck: Tracheostomy tube in place. Cardiovascular exam: S1, S2 heard. No murmurs, gallops, or rubs. Regular rate and rhythm. Respiratory examination: Coarse breath sounds in both bases. Patient not using any accessory muscles or having work of breathing. Abdomen: Soft, nontender. The abdomen is soft. There is a suprapubic catheter in place. Bowel sounds present. No organomegaly. There is old right lower trauma with surgical scar. No signs of peritoneal irritation. Extremities: No pedal edema. Patient has hypertrophic joints with marked spasticity. Neurological exam: Patient is awake, but nonverbal and does not follow commands. 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 LABORATORY DATA: Reviewed. ASSESSMENT AND PLAN: 1. Healthcare-associated pneumonia. Patient is on home oxygen supplementation, BUN every 4 hours, and intravenous antibiotics as per Dr. Bush. 2. Pseudomonas urinary tract infection/pseudomonal bacteremia. Patient currently is on Zosyn. Dr. Bush from infectious disease is following this patient. Help appreciated. 3. Infection encephalopathy. The patient is more calmed down today. We will continue with the same management. 4. Left lower lobe pneumonia. Pulmonary has been consulted and they recommend CT scan in about 6 months. 5. Malnutrition. Patient to continue with his diet and also Ensure. 6. Spastic cerebral palsy, aware. 7. Seizure disorder. We will continue with home medications. DISPOSITION: We are going to transfer this patient out to the unit today. cc: Marlon Galvez MD
--- NOTE | 2017-07-13 17:28 | PROGRESS NOTE ---
DATE: 07/13/2017 PRESENT ILLNESS: The patient has pneumonia and urinary tract infection. MEDICATIONS: The patient is taking Zosyn as a single antibiotic at this time. This is day 2 of Zosyn. PHYSICAL EXAMINATION: Vital Signs: Temperature is 96.6, pulse 73, respirations 16, blood pressure 114/73. Generally: This is a chronically ill-appearing and malnourished-appearing young male in no acute distress. Neck: Patient has a tracheostomy in place. Lungs: There were bilateral rhonchi. I did not hear any wheezes. Cardiovascular: Heart rate is regular. Abdomen: Soft. It is not tender. The patient has a suprapubic catheter in place. LAB AND X-RAY: Chest x-ray show a new left-sided opacity and clearing of the right-sided opacity. Blood cultures are sterile. Creatinine is 0.9. GFR is greater than 60. CBC shows a white count of 5860. Hemoglobin 12.3, and platelet count 257,000. ASSESSMENT AND PLAN: Patient has pneumonia and a Pseudomonas urinary tract infection. I plan to continue Zosyn as a single agent. COMORBIDITIES: The patient has severe cerebral palsy. Has a tracheostomy in place. cc: Shilo Bush MD
[2017-07-14] MEDS: DUONEB (A & A) INH SCH ×3 (02:29→11:35)
[2017-07-14] MEDS: ZOSYN 3.375 GM in NS 50 ML IV SCH ×2 (05:16→10:47)
[2017-07-14 05:41] LABS: MANUAL DIFF NEEDED? NO
[2017-07-14 05:51] LABS: BASO% 0.3 % (0.0-0.8); EOS% 4.8 % (0.0-10.0); HEMATOCRIT 38.2 % (42.0-52.0); HEMOGLOBIN 12.7 g/dL (14.0-18.0); IMM GRAN# 0.08 X1000 (0.0-0.04); IMM GRAN% 1.3 % (0.0-0.5); LYMPH# 1.42 X1000 (1.2-3.4); LYMPH% 22.6 % (20.5-51.1); MCH 29.4 PG (27-31); MCHC 33.2 g/dL (33-37); MCV 88.4 FL (81-99); MONO# 0.41 X1000 (0.11-0.59); MONO% 6.5 % (1.7-9.3); MPV 8.9 FL (7.4-10.4); NEUT% 64.5 % (42.2-75.2); PLT 315 X1000 (130-400); RBC 4.32 XMIL (4.7-6.1)
--- NOTE | 2017-07-14 06:54 | PROGRESS NOTE ---
DATE: 07/14/2017 PRESENT ILLNESS: The patient has pneumonia and a Pseudomonas urinary tract infection. It is uncertain to me how symptomatic the urinary tract infection is. MEDICATIONS: The patient has been on 3 days' worth of intravenous Zosyn. PHYSICAL EXAMINATION: Vital Signs: Temperature is 98.2 degrees, pulse 102, respirations 13, blood pressure 126/71. General: This is a chronically ill appearing, and malnourished-appearing young male. He is in no acute distress. Neck: The patient has tracheostomy in place. Lungs: They were clear to auscultation. I did not hear any rhonchi or rales. Cardiovascular: Heart rate is regular. Abdomen: Soft and nontender. The patient has a suprapubic catheter in place. The site is not erythematous or purulent. LABORATORY AND X-RAY: The patient does not have a new x-ray this morning. His CBC shows a white count of 6290, hemoglobin 12.7, and platelet count 315,000. Creatinine 0.9. GFR is greater than 60. Sputum culture is pending. Urine culture grew Pseudomonas and blood cultures are sterile. ASSESSMENT AND PLAN: Patient has pneumonia and urinary tract infection. I plan to continue Zosyn as a single agent. COMORBIDITIES: Severe cerebral palsy and the presence of a tracheostomy. cc: Shilo Bush MD
[2017-07-14] MEDS: LAMICTAL PO SCH (08:42)
[2017-07-14] MEDS: MIRALAX PO SCH (08:42)
[2017-07-14] MEDS: SINGULAIR PO SCH (08:42)
[2017-07-14] MEDS: NEURONTIN PO SCH (08:42)
[2017-07-14] MEDS: COLACE PO SCH (08:42)
[2017-07-14] MEDS: COUMADIN PO SCH (08:42)
[2017-07-14] MEDS: KLONOPIN PO SCH (08:42)
[2017-07-14] MEDS: LIORESAL PO SCH (09:22)
[2017-07-14] MEDS: ALLEGRA PO SCH (10:47)
[2017-07-14 11:30] VITALS: BP 144/89
[2017-07-14] MEDS: D5 1/2 NS 1,000 ML IV SCH (12:44)
[2017-07-14] MEDS ORDERED: MAXIPIME 1 GM/NS 1 GM/50 ML IVPB IV ONE (13:04)
--- NOTE | 2017-07-14 13:35 | PROGRESS NOTE ---
DATE: 07/14/2017 ADDENDUM: The plan today is to send the patient home on cefepime 1 g IV every 8 hours for 2 weeks. The patient did have Pseudomonas isolated from his urine and sputum. He did have initially 1 blood culture positive for Pseudomonas and then every other blood culture since then has been negative. I discussed with the patient's mother that possibly the original infection came from the Port-A-Cath and, if it did, it may be very difficult to sterilize the Port-A-Cath and it may have to come out. However since he had other areas where the Pseudomonas was cultured, maybe one of those areas was the origin of the bacteremia. Therefore, our plan is to go ahead and treat him for 2 weeks more. He has already had 1 week in the hospital. Will treat for 2 more weeks with cefepime. I told her that if his infection should occur again, then most likely he will have to have his Port-A-Cath removed. After we re sterilize his blood when the Port-A-Cath is out, then the patient can have a Port-A-Cath put in again. [facility] is supplying the patient's home IV antibiotic. I am not going to have the patient come to my office because of marked problems with transporting him. I am available to see the patient on a p.r.n. basis. cc: Shilo Bush MD MTDD
--- NOTE | 2017-07-15 00:18 | DISCHARGE SUMMARY ---
ADMISSION DATE: 07/09/2017 DISCHARGE DATE: 07/14/2017 CONSULTATIONS: 1. Dr. Shilo Bush with Infectious Disease. 2. Dr. Pola Daniel with Pulmonology. PERTINENT PROCEDURES: 1. Chest CT showed dense consolidation in the right lung base, consistent with pneumonia, much milder patchy nodular consolidation on the left. Extensive mucus plugging involving the branches of the right mainstem bronchus, leading to the right lower lobe dense consolidations. 2. Renal ultrasound showed small simple renal cysts. Essentially unremarkable renal ultrasound. 3. Abdominal ultrasound showed fecal impaction with constipation. 4. Head CT showed stable chronic intracranial changes, but no evidence of acute intracranial pathology. DISCHARGE DIAGNOSES: 1. Healthcare-associated pneumonia. The patient is on home O2 supplementation, will continue IV antibiotics per Dr. Bush. 2. Pseudomonas urinary tract infection/pseudomonas bacteremia; however, he will have 1 blood culture, the rest have been negative. Followed by Dr. Bush. Will continue on IV antibiotics at home. 3. Infectious encephalopathy. The patient is back to baseline. 4. Left lower lobe pneumonia, Pulmonary was consulted. Recommend repeat CT scan in 6 months. 5. Malnutrition. Continue with his diet, as well as Ensure. 6. Spastic cerebral palsy, aware. 7. Seizure disorder. Continue with his home medications. 8. Chronic anticoagulation on Coumadin therapy, secondary to Port-A-Cath placement. Continue Coumadin therapy. 9. Constipation. Continue bowel regimen. HOSPITAL COURSE: Mr. Ruiz is a 26-year-old male with history of cerebral palsy, a tracheostomy and a suprapubic catheter. Presented to [facility] after receiving a telephone call from the on-call physician, Dr. Sheffield, his primary care physician, saying that he had a positive blood culture and to go to the emergency room. Apparently, the patient had lab work on July 08, which included blood cultures that returned gram-negative rods. He and mildly elevated white blood cell count at 12, bandemia noted on his CBC. His chemistry panel showed mild elevation in his AST and ALT at 57 and 54. Last admitted on 05/25/2017 for hematuria and stones, treated by Dr. Bush. Secondary to chronic UTI, he was admitted for probable bacteremia and positive blood cultures. Started on IV antibiotics, with a consult for Dr. Bush. He continued the Zosyn and discontinued the vancomycin. Ordered a renal ultrasound, as well as an abdominal x-ray. Dr. Daniel was consulted, with Pulmonology, for the right lower lobe pneumonia. He agreed with the broad-spectrum antibiotics, as well as bronchodilators, supplemental O2 and IV fluids for hydration, and just to repeat a CAT scan in 6 months. The patient was transferred from the floor to the ICU for low blood pressures, because of 1 reading of low blood pressures 80's/60's. When he was transferred, his blood pressures were 100/20's. No vasopressors were started. He was monitored in the ICU for 1 day, then transferred out to the [facility]. He was monitored for another day. He is appropriate for discharge home today, with IV antibiotics per Dr. Shilo Bush. VITAL SIGNS: At the time of his discharge, temperature is 97.9 degrees, heart rate 83, respirations 16, blood pressure 144/89, O2 is 98% on trach collar. DISCHARGE MEDICATIONS: 1. Baclofen 40 mg p.o. t.i.d. 2. Klonopin 0.5 mg p.o. daily. 3. Klonopin 1 mg p.o. at bedtime. 4. Colace 100 mg p.o. b.i.d. 5. Jessie 60 mg p.o. daily. 6. Neurontin 100 mg p.o. q.a.m. 7. Neurontin 300 mg p.o. at bedtime. 8. Lamictal ODT 100 mg p.o. daily. 9. Lamictal 150 mg p.o. at bedtime. 10. Singulair 10 mg p.o. daily. 11. MiraLAX 17 g p.o. daily. 12. Warfarin 1 mg p.o. daily. FOLLOWUP: Mr. Ruiz is being discharged back home with his mother and home health, with IV antibiotics per Dr. Shilo Bush. He can return to the ED for any worsening of symptoms. Dictated by MOIRA Phelan for Marlon Galvez MD cc: Marlon Galvez MD
--- NOTE | 2017-07-17 14:23 | PROVIDER DOCUMENTATION ---
This chart was entered by Oralia Tolentino Scribe, acting as scribe for Andres Cha PA. HPI-General Adult - General Chief Complaint: Abnormal Lab[s] Stated Complaint: ABNORMAL LABS Time Seen by Provider: 07/09/17 00:34 Source: family Allergies/Adverse Reactions: Patient Allergies Allergy/AdvReac Type Severity Reaction Status Date / Time latex AdvReac Mild RASH Verified 07/09/17 00:27 Home Medications: Home Medication List Medication Instructions Recorded Confirmed Last Taken Type Baclofen 40 mg PO TID 12/15/12 07/09/17 07/09/17 History Clonazepam [Klonopin] 0.5 mg PO DAILY 12/15/12 07/09/17 07/09/17 History Clonazepam [Klonopin] 1 mg PO HS 08/28/14 07/09/17 07/09/17 History Lamotrigine [Lamictal Odt] 100 tab PO DAILY 10/08/15 07/09/17 07/09/17 History Polyethylene Glycol 3350 [Miralax] 17 gm PO DAILY 10/08/15 07/09/17 07/09/17 History Lamotrigine [Lamictal Odt] 150 mg PO QHS 03/19/17 07/09/17 07/09/17 History Fexofenadine [Jessie] 60 mg PO DAILY 05/25/17 07/09/17 07/09/17 History Gabapentin [Neurontin] 100 mg PO QAM 05/25/17 07/09/17 07/09/17 History Gabapentin [Neurontin] 300 mg PO QHS 05/25/17 07/09/17 07/09/17 History Montelukast Sodium [Singulair] 10 mg PO DAILY 05/25/17 07/09/17 07/09/17 History Piperacillin/Tazobactam [Zosyn] 3.375 gm IV Q6H 05/25/17 07/09/17 07/09/17 History Docusate Sodium [Colace] 100 mg PO BID 05/26/17 07/09/17 07/09/17 History Warfarin Sodium [Warfarin Sodium] 1 mg PO DAILY 07/09/17 07/09/17 07/09/17 History - History of Present Illness -Gen Adult Nature of Presenting Problems: 26 year old M presents to the ED with a cc of positive blood cultures. Mother states that Dr. Sheffield sent pt here for admission. PT has been taking Levaquin until the blood cultures came back. Mother states that 5 days ago pt began running a fever at night. PT has CP, tracheostomy, and suprapubic catheter. Mother states that urine has looked more dark than normal. Severity: reports: mild Timing: reports: still present Context/Activities at Onset: reports: none Associated Symptoms: reports: denies symptoms Similar Symptoms Previously?: No Recently seen or treated by another doctor?: No Review of Systems - Adult - REVIEW OF SYSTEMS - ADULT ROS:: ROS per family Constitutional: reports: fever. denies: chills Eyes: reports: no symptoms reported Ears, Nose, Mouth & Throat: reports: no symptoms reported Cardiovascular: reports: no symptoms reported Respiratory: reports: no symptoms reported Gastrointestinal: reports: no symptoms reported Genitourinary: reports: see HPI, other (dark colored urine) Musculoskeletal: reports: no symptoms reported Integumentary: reports: no symptoms reported Neurological: reports: no symptoms reported Psychiatric: reports: no symptoms reported Endocrine: reports: no symptoms reported Hematologic/Lymphatic: reports: no symptoms reported Allergic/Immunologic: reports: no symptoms reported All Other Systems: Reviewed and Negative Past History - Adult - PAST MEDICAL HISTORY-ADULT Review of Records: reports: Nursing Assessment Review, Medications Reviewed Major Childhood Illnesses: reports: denies history Cardiovascular: reports: denies history Respiratory: reports: asthma Gastrointestinal: reports: denies history Obstetrical/Gynecological: reports: denies history Genitourinary: reports: kidney stones, chronic UTI's Musculoskeletal: reports: denies history Neurological: reports: Seizures/Epilepsy, other (cerebral palsy) Endocrine/Immune: reports: denies history Other Conditions: reports: denies history - PRIOR SURGERIES/PROCEDURES Surgical/Procedure History: reports: indwelling device, back/neck, other - IMMUNIZATION STATUS Childhood Immunizations: See Nurse Assessment Flu Vaccine: See Nurse Assessment - FAMILY HISTORY Family History: reviewed, not pertinent - SOCIAL HISTORY Smoking: non-smoker Substance Use: none/never Alcohol Use Frequency: never Living Situation: family Physical Exam-General - PHYSICAL EXAM-ADULT Initial Vital Signs Reviewed: Yes - CONSTITUTIONAL General Appearance: alert - NECK Neck: other (tracheostomy) - RESPIRATORY Respiratory: chest non-tender, lungs clear, normal breath sounds - CARDIOVASCULAR Cardiovascular: normal peripheral pulses, regular rate, rhythm, no edema - GASTROINTESTINAL (ABDOMEN) Abdominal Exam: other (suprapubic cath) - MUSCULOSKELETAL Extremity: other (contracted lower extremities) - SKIN Integumentary: normal color, normal turgor, warm/dry - NEUROLOGIC Neurologic: other (pt has CP) Progress - PLAN OF CARE/RESULTS Progress/Plan/Lab Results: Vital Signs - 8 hr 07/08/17 23:11 Temperature 97.6 F Pulse Rate 81 Respiratory Rate 20 Blood Pressure 125/78 O2 Sat by Pulse Oximetry 93 L - CONSULTS/PCP/HOSPITALIST Notification #1 *Consult/PCP/Hospitalist*: Dr. Apple (Hospitalist) Time Discussed: 00:52 (Discussed c Dr. Apple who would like us to re-oreder labs and work-up. He will order abx upstairs.) Departure - Departure Date of Disposition Decision: 07/09/17 Time of Disposition Decision: 00:53 DIAGNOSIS: Fever Qualifiers: Fever type: unspecified Qualified Code(s): R50.9 - Fever, unspecified Disposition: ADMITTED INPATIENT 09 Certified Medical Emergency: Emergent Condition: Stable Referrals and Follow-Ups: Matthieu Sheffield MD [Primary Care Provider] - - Critical Care Note This patient required my direct & personal management of CC.: No Attestation - Physician/ FRANCIS Attestation Patient care was provided by Advanced Practice Provider:: Yes Advanced Practice Provider:: Andres Cha Advanced Practice Provider documentation review:: The Mid-level provider documentation, treatment plan and medical decision making was reviewed by the physician who agrees with all treatment and medical decision making by the [facility]. The physician spent face to face time with patient:: No Advanced Practice Provider documentation review:: Supervising physician onsite and consulted in the evaluation and care of this patient. The physician did not have a face to face encounter with the patient. This chart was documented by the indicated scribe, (Oralia Tolentino Scribe) and accurately reflects the services I performed and decisions made by me, Andres Cha PA, as attested by the provider's signature.
== END 2017-07-14 15:20 | disposition home health service (06) ==
LOC: ED 23:08 → 4N 07-09 02:33 → SUATTDRO 07-09 02:33 → ICU 07-11 15:18 → 3S 07-13 13:36
PROVIDERS: ATTEND Internal Medicine

== ENCOUNTER 2019-04-19 09:59 | Inpatient (IN) ==
[2019-04-19] MEDS ORDERED: TYLENOL PO ONE (10:14)
[2019-04-19] MEDS ORDERED: NS 1,000 ML IV ONE ×2 (10:14→12:03)
--- NOTE | 2019-04-19 10:18 | EKG Report ---
Test Performed on : 04/19/2019 10:12:32 AM Test Reason : HT Blood Pressure : / mmHG Vent. Rate : 157 BPM Atrial Rate : 157 BPM P-R Int : 126 ms QRS Dur : 074 ms QT Int : 226 ms P-R-T Axes : 058 085 -42 degrees QTc Int : 365 ms Sinus tachycardia. T wave abnormality, consider inferior ischemia Abnormal ECG When compared with ECG of 02-JAN-2018 05:30, Questionable change in QRS axis T wave inversion more evident in Inferior leads Unconfirmed Result
[2019-04-19 11:01] LABS: BASO# 0.02 X1000 (0.0-0.2); BASO% 0.2 % (0.0-0.8); EOS# 0.02 X1000 (0.0-0.7); EOS% 0.2 % (0.0-10.0); HEMOGLOBIN 10.4 g/dL (14.0-18.0); IMM GRAN# 0.05 X1000 (0.0-0.04); IMM GRAN% 0.6 % (0.0-0.5); LYMPH# 0.51 X1000 (1.2-3.4); LYMPH% 6.3 % (20.5-51.1); MCH 24.2 PG (27-31); MCHC 32.5 g/dL (33-37); MCV 74.6 FL (81-99); MONO# 0.53 X1000 (0.11-0.59); MONO% 6.6 % (1.7-9.3); NEUT# 6.95 X1000 (1.4-6.5); NEUT% 86.1 % (42.2-75.2); PLT 139 X1000 (130-400); RBC 4.29 XMIL (4.7-6.1); RDW 15.8 % (11.5-14.5); WBC 8.08 X1000 (4.8-10.8)
[2019-04-19 11:10] LABS: URINE SOURCE CATH
[2019-04-19] MEDS ORDERED: MOTRIN PO ONE (11:17)
[2019-04-19 11:28] LABS: AGAP 15; ALB/GLOB RATIO 1.1; ALBUMIN 3.5 g/dL (3.5-5.0); ALKALINE PHOSPHATASE 103 U/L (32-122); BUN 17 mg/dL (8-22); CALCIUM 8.1 mg/dL (8.8-10.2); CHLORIDE 106 mmol/L (98-107); CK PROFILE 24 U/L (24-204); COSMO 291; CREATININE 1.1 mg/dL (0.7-1.2); ESTIMATED GFR > 60; GLUCOSE 117 mg/dL (70-104); GOT 17 U/L (10-34); GPT 18 U/L (10-44); POTASSIUM 3.2 mmol/L (3.5-5.1); SODIUM 145 mmol/L (136-145); TCO2 24 mmol/L (25-35); TOTAL BILIRUBIN 0.81 mg/dL (0.20-1.00); TOTAL PROTEIN 6.8 g/dL (6.3-8.3)
--- NOTE | 2019-04-19 11:29 | Diag Imaging Result Doc PS360 ---
EXAM: CHEST-1 VIEW HISTORY: POSSIBLE SEPSIS TECHNIQUE: Portable chest single view COMPARISON: 01/02/2019 FINDINGS: There is a tracheostomy tube and right-sided PICC line. The lungs are well expanded and clear. No cardiomegaly. No pulmonary edema. No pleural effusions identified. IMPRESSION: No pneumonia. Electronically signed by Emerson Means 04/19/2019 11:27 AM
[2019-04-19 11:33] LABS: INR 1.18; PROTIME 15.9 Seconds (11.0-16.0)
[2019-04-19 11:34] LABS: PTT 32.7 Seconds (22.3-41.8)
[2019-04-19 11:35] LABS: UR EPITHELIAL CELLS >10 /HPF (<10); URINE BACTERIA 4+ /HPF; URINE RBC TNTC /HPF (<10); URINE WBC TNTC /HPF (<10)
[2019-04-19 11:39] LABS: BILIRUBIN URINE NEGATIVE (NEGATIVE); BLOOD URINE LARGE (NEGATIVE); COLOR YELLOW; GLUCOSE URINE NEGATIVE (NEGATIVE); KETONE URINE NEGATIVE (NEGATIVE); SP GRAVITY URINE > 1.030; TURBIDITY URINE TURBID (CLEAR); URINE YEAST PRESENT
[2019-04-19 11:40] LABS: LEUKOCYTES URINE MODERATE (NEGATIVE); NITRITE URINE NEGATIVE (NEGATIVE); PROTEIN URINE 100 mg/dL (NEGATIVE); UROBILINOGEN URINE NORMAL (NORMAL)
[2019-04-19 11:43] LABS: ANISOCYTOSIS 2+; BANDS 3 % (0-1); LARGE PLATELETS 1+; LYMPHS 6 % (21-51); MICROCYTOSIS 2+; MONO 7 % (1-9); NRBC 1 % (0-0); SEGS 84 % (42-75)
[2019-04-19] MEDS ORDERED: ROCEPHIN 1 GM in NS 50 ML IV ONE (12:03)
--- NOTE | 2019-04-19 12:05 | PROVIDER DOCUMENTATION ---
This chart was entered by Adalid Akers Scribe, acting as scribe for Miah Herrmann MD. HPI-Fever - General Chief Complaint: SEPSIS ALERT - D Stated Complaint: HIGH FEVER Time Seen by Provider: 04/19/19 10:12 Source: patient, family Allergies/Adverse Reactions: Patient Allergies Allergy/AdvReac Type Severity Reaction Status Date / Time vancomycin Allergy Severe severe Verified 10/07/18 15:19 decrease WBC/RBC latex Allergy Mild RASH Verified 10/07/18 15:19 Home Medications: Home Medication List Medication Instructions Recorded Confirmed Last Taken Type Baclofen 20 mg PO TID 12/15/12 06/02/18 06/02/18 06:30 History Clonazepam [Klonopin] 1 mg PO QHS 12/15/12 05/31/18 06/01/18 History Clonazepam [Klonopin] 0.5 mg PO QAM 08/28/14 06/02/18 06/02/18 06:30 History Fexofenadine [Jessie] 60 mg PO BID 05/25/17 05/31/18 06/01/18 History Gabapentin [Neurontin] 100 mg PO QAM 05/25/17 06/02/18 02/09/18 07:30 History Gabapentin [Neurontin] 300 mg PO QHS 05/25/17 05/31/18 06/01/18 History Montelukast Sodium [Singulair] 10 mg PO DAILY 05/25/17 05/31/18 06/01/18 History Docusate Sodium [Colace] 100 mg PO BID PRN 09/30/17 05/31/18 06/01/18 History Lamotrigine [Lamictal] 100 mg PO QAM 11/22/17 06/02/18 06/02/18 06:30 History Lamotrigine [Lamictal] 150 mg PO QHS 11/22/17 05/31/18 06/01/18 History Lactulose 15 ml PO BID #120 udc 01/14/18 05/31/18 06/01/18 Rx Gentamicin 80 mg IV DAILY #1 vial 02/15/18 05/31/18 06/01/18 Rx Levalbuterol HCl [Xopenex] 0.63 mg IH Q6H PRN PRN #1 vial.neb 02/15/18 06/02/18 Unknown Rx Dextrose 5 %-0.45 % NaCl [Dextrose 1,000 ml IV DAILY 05/31/18 05/31/18 06/01/18 History 5%-0.45% NaCl IV Soln] Acetaminophen [Tylenol] [address] Q4H PRN PRN #10 supp 08/05/18 Unknown Rx Cephalexin [Keflex] 500 mg PO BID #14 cap 08/05/18 Unknown Rx - History of Present Illness-Fever Nature of Presenting Problem: Pt is a 28 yom who presents to the ED with family with a CC of fever. Pt's mother states that this morning the pt began running a fever. Pt's mother states that the pt's temperature was checked with two different thermometers and both showed a fever over 105 degrees F. The pt's mother states that a Tylenol was t aken at 0815 when the pt began having chills and started sweating. The pt's mother also complains of the pt being lethargic, sleeping a lot, and decreased urine output. The pt's mother also states that the pt had milky urine with stones and mucous in it. The pt's mother states that the pt gets fluids every night and the last three nights they have had to use an enema for constipation. The pt's mother states a hx of cerebral palsy, a suprapubic catheter, seizures, and is legally blind. Fever Severity/Quality: reports: greater than 102 F Onset/Duration: reports: 1-3 hours ago Timing: reports: still present Severity: reports: moderate Recent Illness?: reports: other (See HPI) Fever Therapy SANITARIAN AIDE: Initiated Tylenol (0815 this morning) Cognitive Baseline: other (See HPI) Associated Symptoms: reports: constipation, other (lethargic) Similar Symptoms Previously?: Yes Recently seen or treated by another doctor?: Yes Review of Systems - Adult - REVIEW OF SYSTEMS - ADULT ROS:: ROS per family Constitutional: reports: chills, fever, night sweats. denies: fatique, weight gain, weight loss Eyes: reports: no symptoms reported Ears, Nose, Mouth & Throat: reports: no symptoms reported Cardiovascular: reports: no symptoms reported Respiratory: reports: no symptoms reported Gastrointestinal: reports: no symptoms reported Genitourinary: reports: urinary retention. denies: frequency, flank pain, hematuria Musculoskeletal: reports: no symptoms reported Integumentary: reports: no symptoms reported Neurological: reports: seizure. denies: syncope, tremors Psychiatric: reports: no symptoms reported Endocrine: reports: no symptoms reported Hematologic/Lymphatic: reports: no symptoms reported Allergic/Immunologic: reports: other (See HPI) All Other Systems: Reviewed and Negative Past History - Adult - PAST MEDICAL HISTORY-ADULT Review of Records: reports: Nursing Assessment Review, Medications Reviewed, Social history reviewed & non-contributory. Major Childhood Illnesses: reports: denies history Cardiovascular: reports: denies history Respiratory: reports: asthma Gastrointestinal: reports: denies history Obstetrical/Gynecological: reports: denies history Genitourinary: reports: kidney stones, chronic UTI's Musculoskeletal: reports: denies history Neurological: reports: other, Seizures/Epilepsy Endocrine/Immune: reports: denies history Other Conditions: reports: denies history - PRIOR SURGERIES/PROCEDURES Surgical/Procedure History: reports: indwelling device, other, back/neck - IMMUNIZATION STATUS Childhood Immunizations: See Nurse Assessment Flu Vaccine: See Nurse Assessment - FAMILY HISTORY Family History: reviewed, not pertinent Physical Exam-General - PHYSICAL EXAM-ADULT Initial Vital Signs Reviewed: Yes - CONSTITUTIONAL General Appearance: mild distress, thin, lethargic. negative: severe distress, anxious, obtunded, combative - EYES Eyes: PERRL/EOMI. negative: EOM palsy, photophobia, sclera injected, scleral icterus - HEAD, EARS, NOSE, MOUTH & THROAT HENMT: other (Dry mouth). negative: moist mucous membranes, dental decay, TM abnormal - NECK Neck: other (See HPI) - RESPIRATORY Respiratory: chest non-tender, lungs clear, normal breath sounds. negative: crackles, rales, wheezing - CARDIOVASCULAR Cardiovascular: no edema, no gallop, no JVD, tachycardia. negative: JVD, bradycardia, diastolic murmur, systolic murmur - GASTROINTESTINAL (ABDOMEN) Abdominal Exam: non tender, soft. negative: guarding, rigid, rebound, tenderness - MUSCULOSKELETAL Back Exam: other (See HPI) Extremity: other (See HPI). negative: swelling, tenderness - SKIN Integumentary: normal color, warm/dry. negative: abrasion(s), jaundice, laceration(s) - NEUROLOGIC Neurologic: grossly normal, other (See HPI) - PSYCHIATRIC Psych/Mental Status: normal mood/affect. negative: anxious, depressed affect, paranoid Progress - PLAN OF CARE/RESULTS Progress/Plan/Lab Results: Vital Signs - 8 hr 04/19/19 10:05 04/19/19 10:20 04/19/19 10:30 Temperature 102.4 F H Pulse Rate 163 H 157 H 155 H Respiratory Rate 20 21 29 H Blood Pressure 108/70 O2 Sat by Pulse Oximetry 91 L 93 L 92 L 04/19/19 10:52 04/19/19 11:00 04/19/19 11:40 Temperature 100.6 F H Pulse Rate 153 H 150 H 140 H Respiratory Rate 20 26 H 29 H Blood Pressure 100/85 O2 Sat by Pulse Oximetry 91 L 94 L 88 L 04/19/19 11:50 04/19/19 11:54 04/19/19 11:56 Temperature Pulse Rate 132 H 133 H Respiratory Rate 19 17 Blood Pressure 91/47 O2 Sat by Pulse Oximetry 93 L 92 L 92 L 04/19/19 11:59 Temperature 98.7 F Pulse Rate Respiratory Rate Blood Pressure O2 Sat by Pulse Oximetry Laboratory Results - last 24 hr 04/19/19 04/19/19 04/19/19 10:45 10:45 10:45 WBC 8.08 RBC 4.29 L Hgb 10.4 L Hct 32.0 L MCV 74.6 L MCH 24.2 L MCHC 32.5 L RDW Std Deviation 15.8 H Plt Count 139 MPV 9.0 Immature Gran % (Auto) 0.6 H Neut % (Auto) 86.1 H Lymph % (Auto) 6.3 L Lynn % (Auto) 6.6 Eos % (Auto) 0.2 Baso % (Auto) 0.2 Immature Gran # (Auto) 0.05 H Neut # (Auto) 6.95 H Lymph # (Auto) 0.51 L Lynn # (Auto) 0.53 Eos # (Auto) 0.02 Baso # (Auto) 0.02 Segmented Neutrophils 84 H Band Neutrophils 3 H Lymphocytes 6 L Monocytes 7 Nucleated RBCs 1 H Large Platelets 1+ Anisocytosis 2+ Microcytosis 2+ PT INR PTT (Actin FS) Sodium 145 Potassium 3.2 L Chloride 106 Carbon Dioxide 24 L Anion Gap 15 BUN 17 Creatinine 1.1 Estimated GFR/1.73 m2 > 60 BUN/Creatinine Ratio 15 Glucose 117 H Calculated Osmolality 291 Calcium 8.1 L Total Bilirubin 0.81 AST 17 ALT 18 Alkaline Phosphatase 103 Creatine Kinase 24 Troponin T Total Protein 6.8 Albumin 3.5 Globulin 3.3 Albumin/Globulin Ratio 1.1 Plasma Lactate 2.5 H Urine Source Urine Color Urine Turbidity Urine pH Ur Specific [place] Urine Protein Ur Glucose (Stick) Ur Ketones (Stick) Urine Blood Urine Nitrite Urine Bilirubin Urobilinogen Dipstick Urine Leukocytes Urine WBC (Auto) Urine RBC (Auto) U Epithel Cells (Auto) Urine Bacteria (Auto) Urine Crystals Small Round Cells Urine Casts Urine Yeast-like Cells 04/19/19 04/19/19 04/19/19 10:45 10:45 11:03 WBC RBC Hgb Hct MCV MCH MCHC RDW Std Deviation Plt Count MPV Immature Gran % (Auto) Neut % (Auto) Lymph % (Auto) Lynn % (Auto) Eos % (Auto) Baso % (Auto) Immature Gran # (Auto) Neut # (Auto) Lymph # (Auto) Lynn # (Auto) Eos # (Auto) Baso # (Auto) Segmented Neutrophils Band Neutrophils Lymphocytes Monocytes Nucleated RBCs Large Platelets Anisocytosis Microcytosis PT 15.9 INR 1.18 PTT (Actin FS) 32.7 Sodium Potassium Chloride Carbon Dioxide Anion Gap BUN Creatinine Estimated GFR/1.73 m2 BUN/Creatinine Ratio Glucose Calculated Osmolality Calcium Total Bilirubin AST ALT Alkaline Phosphatase Creatine Kinase Troponin T < 0.010 Total Protein Albumin Globulin Albumin/Globulin Ratio Plasma Lactate Urine Source CATH Urine Color YELLOW Urine Turbidity TURBID Urine pH 6.0 Ur Specific [place] > 1.030 Urine Protein 100 A Ur Glucose (Stick) NEGATIVE Ur Ketones (Stick) NEGATIVE Urine Blood LARGE A Urine Nitrite NEGATIVE Urine Bilirubin NEGATIVE Urobilinogen Dipstick NORMAL Urine Leukocytes MODERATE A Urine WBC (Auto) TNTC A Urine RBC (Auto) TNTC A U Epithel Cells (Auto) >10 A Urine Bacteria (Auto) 4+ Urine Crystals Not Reportable Small Round Cells Not Reportable Urine Casts Not Reportable Urine Yeast-like Cells PRESENT Orders Category Date Time Status Cardiac Monitoring DIRECTED Care 04/19/19 10:08 Active IV Insertion ORDERED Care 04/19/19 10:08 Completed Notify MD of + Sepsis Screen NOW Care 04/19/19 10:08 Active Notify Physician As Ordered Care 04/19/19 10:08 Active CHEST-1 VIEW [RAD] Stat Exams 04/19/19 10:08 Completed BLOOD CULTURE [BLDCUL] Stat Lab 04/19/19 10:45 Results CBC WITH DIFF [HEME] Stat Lab 04/19/19 10:45 Completed CK PROFILE [SP CHEM] Stat Lab 04/19/19 10:45 Completed COMPREHENSIVE METABOLIC PANEL [CHEM] Stat Lab 04/19/19 10:45 Completed LACTATE, PLASMA [CHEM] Lab 04/19/19 13:15 Uncollected LACTATE, PLASMA [CHEM] Lab 04/19/19 16:15 Uncollected LACTATE, PLASMA [CHEM] Q3H Lab 04/19/19 10:45 Completed PROTIME WITH INR [COAG] Stat Lab 04/19/19 10:45 Completed PTT [COAG] Stat Lab 04/19/19 10:45 Completed TROPONIN T Stat Lab 04/19/19 10:45 Completed URINALYSIS W/POSS RFLX CULT [URINALYSIS] Stat Lab 04/19/19 11:03 Completed URINE CULTURE [RM] Routine Lab 04/19/19 11:40 Received URINE MANUAL MICROSCOPIC [URINALYSIS] Stat Lab 04/19/19 11:03 Completed 0.9% Sodium Chloride Inj [Ns] 1,000 ml Med 04/19/19 10:14 Discontinued IV 999 mls/hr Acetaminophen [Tylenol] Med 04/19/19 10:14 Discontinued 1,000 mg PO NOW ONE Ibuprofen [Motrin] Med 04/19/19 11:17 Discontinued 600 mg PO NOW ONE Ns 1000 ml IV Bolus X1 Med 04/19/19 12:03 Ordered 0.9% Sodium Chloride Inj [Ns] 1,000 ml IV 999 mls/hr Rocephin 1 gm/Ns IV Now Med 04/19/19 12:03 Ordered CefTRIAXONE [Rocephin] 1 gm 0.9% Sodium Chloride Inj [Ns] 50 ml IV NOW Oxygen Device Stat Oth 04/19/19 10:08 Completed EKG [EKG] Stat Ther 04/19/19 10:14 Draft Result Diagrams: 04/19/19 10:45 04/19/19 10:45 - EKG 1 Time of EKG reading by physician:: 10:12 EKG Read and Signed by:: Miah Herrmann EKG Interpretation (*Must complete 3 of following elements*): Abnormal (T wave abnormality, consider inferior ischemia) Rate: 157 Rhythm: Sinus tachycardia - XRAY 1 XRAY Study: Chest (EXAM: CHEST-1 VIEW HISTORY: POSSIBLE SEPSIS TECHNIQUE: Portable chest single view COMPARISON: 01/02/2019 FINDINGS: There is a tracheostomy tube and right-sided PICC line. The lungs are well expanded and clear. No cardiomegaly. No pulmonary edema. No pleural effusions identified. IMPRESSION: No pneumonia. Electronically signed by Emerson Means 04/19/2019 11:27 AM 04/19/19 1127 Interpreting Physician: Emerson Means MD Dictated Date/Time: 04/19/19 1127 cc: Miah Herrmann MD; Matthieu Sheffield MD) Impression: See EMR Report - CONSULTS/PCP/HOSPITALIST Notification #1 *Consult/PCP/Hospitalist*: Shakila Carrillo Time Discussed: 12:04 Consult Disposition: Will see in ED, Admit Departure - Departure Date of Disposition Decision: 04/19/19 Time of Disposition Decision: 12:04 DIAGNOSIS: Sepsis, Urinary tract infection, Hypokalemia, Anemia Disposition: ADMITTED INPATIENT 09 Certified Medical Emergency: Emergent Condition: Fair Referrals and Follow-Ups: Matthieu Sheffield MD [Primary Care Provider] - - Critical Care Note This patient required my direct & personal management of CC.: Yes Total Time (mins): 35 Critical Care Statement: This patient required my direct personal management to treat or rule out processes, the absence of which, could potentiallly result in sudden, clinically significant life or limb threatening deterioration. Attestation - Physician/ FRANCIS Attestation Patient care was provided by Advanced Practice Provider:: No The physician spent face to face time with patient:: Yes Advanced Practice Provider documentation review:: Supervising physician onsite and consulted in the evaluation and care of this patient. The physician did have a face to face encounter with the patient. This chart was documented by the indicated scribe, (Adalid Akers Scribe) and accurately reflects the services I performed and decisions made by me, Miah Taylor MD, as attested by the provider's signature.
[2019-04-19] MEDS ORDERED: NS + KCL 40 MEQ 1,000 ML IV SCH (12:54)
[2019-04-19] MEDS ORDERED: ZOFRAN IV PRN (12:54)
[2019-04-19] MEDS ORDERED: MAXIPIME 1 GM in NS 50 ML IV SCH (12:54)
[2019-04-19] MEDS ORDERED: TYLENOL NG PRN (12:56)
[2019-04-19] MEDS: XOPENEX NEB INH SCH ×3 (15:44→23:25)
[2019-04-19 15:50] LABS: ALLEN TEST YES; BE -0.4 mmoll (-3.0-3.0); BLOOD TYPE ARTERIAL; HCO3-(ACT) 24.6 mmoll (20.0-26.0); METHB 0.9 % (0.0-1.5); O2(CT) 14.4 mL/dL (15.0-23.0); O2HB 96.5 % (95.0-99.0); PCO2(98.6) 38 mmHg (35-45); PO2(98.6) 112 mmHg (60-100); SAMPLE BLOOD; SAO2 99.2 % (95.0-100.0); THB 10.5 g/dL (11.5-17.4); pH(98.6) 7.41 (7.35-7.45)
[2019-04-19 15:52] LABS: MODALITY COOL AEROSOL
[2019-04-19] MEDS: MERREM 1 GM in NS 50 ML IV SCH ×2 (16:00→23:39)
[2019-04-19] MEDS ORDERED: LIORESAL PO SCH (17:00)
--- NOTE | 2019-04-19 18:41 | HISTORY AND PHYSICAL ---
PRIMARY CARE PROVIDER: Dr. Sheffield. CHIEF COMPLAINT: Per ED report, patient was assessed in ICU. No family was available at that time. Febrile illness. HISTORY OF PRESENT ILLNESS: Mr. Ruiz is a 28-year-old gentleman who carries a past medical history of cerebral palsy, seizure disorder, frequent urinary tract infections. He is in a bed- bound state. He has a trach collar and suprapubic catheter. Per ED report, his mother stated that he started running a fever this a.m. They checked his temp with 2 different thermometers and both showed a fever of 105. She was given Tylenol around 8:15 and the patient began having chills and started sweating. He became lethargic, sleeping a lot, decreased urine output. She also stated that he had milky urine and stones and mucus in it. Per the mother, the patient gets fluids every night and the last 3 nights they have had the use enema for constipation. He was found to be septic. He spiked a fever of 102. He was tachycardic with dirty urine and a lactate of 2.5 initially, as well as some mild hypokalemia. He was placed in the ICU to watch for close observation and we have initiated him on a broader spectrum antibiotic and consulted Dr. Shilo Bush for his urinary tract infection. REVIEW OF SYSTEMS: Unable to obtain secondary to patient's condition. No family immediately available at the bedside. PAST MEDICAL HISTORY: Cerebral palsy, frequent urinary tract infection, seizure disorder, GERD, legally blind. PAST SURGICAL HISTORY: Scoliosis with nancy insertion and subsequent nancy removal secondary to infection, suprapubic catheter, tracheostomy, lithotripsy, fundoplication, right-sided Port-A-Cath placement and I believe removal. He now has a right upper arm PICC line. SOCIAL HISTORY: Patient lives with his parents. No smoking, alcohol, or illicit drug use. FAMILY HISTORY: Nothing significant. PHYSICAL EXAMINATION: VITAL SIGNS: Initial temperature upon arrival was 102.4. He is now down to 99.6, heart rate 122, respirations 18, blood pressure 115/72, O2 98% on trach collar. GENERAL: Mr. Ruiz is a 28-year-old male who is lying on the bed in the ICU. He does not appear to be in acute distress. However, he does appear chronically ill. He is awake, but he did not respond to any questions. Patient is nonverbal. There was no following commands. HEENT: Atraumatic, normocephalic. Mucous membranes extremely dry. NECK: Supple. Trachea midline. CARDIOVASCULAR: S1, S2 appreciated. No murmurs, gallops or rubs. RESPIRATORY: Lung sounds clear bilaterally. ABDOMEN: Appeared to be soft, nontender. Positive bowel sounds 4 quadrants. EXTREMITIES: Extremities are contracted. No signs of cyanosis. SKIN: He does have a suprapubic catheter in place as well as a right upper extremity PICC line. LABORATORY DATA: White count 8, hemoglobin and hematocrit 10 and 32, platelet count is 139,000. Sodium 145, potassium 3.2, BUN 17, creatinine 1.1, blood glucose is 117. Initial lactate 2.5. Follow-up lactate after fluid 0.6. Urinalysis 4+ bacteria, too numerous to count WBCs, and RBCs, large blood negative for nitrites. Chest x-ray showed no pneumonia. EKG showed sinus tachycardia. ASSESSMENT AND PLAN: 1. Sepsis secondary to urinary tract infection. Will broaden his spectrum with antibiotics. Consult Dr. Bush. His lactate has gone down to 0.6 after IV fluid boluses. We will continue with high rate IV fluids and await his urine culture. 2. Hypoxemia on trach collar. We will consult Dr. Marcelo, see if he needs any adjustments to his orders. I believe his lowest was 90 or 91. Also pending his ABG. 4. Mild hypokalemia. We will give him potassium replacement in his IV fluids. Recheck in the a.m. 5. Cerebral palsy. Aware. Will continue home medications when reconciled. 6. Seizure disorder. 7. Frequent urinary tract infections. Aware. 8. Gastroesophageal reflux disease. 9. Further recommendations to follow physician evaluation, laboratory and diagnostic data. Dictated by MOIRA Phelan for Joanie Carrillo MD cc: MD Shilo López MD Dr. James Ball Hiteshri S. Bhavsar, MD [facility]OSPITALChristine
--- NOTE | 2019-04-19 18:46 | INFECTIOUS DISEASE PROGRESS NO ---
DATE: 04/19/2019 PRESENT ILLNESS: Mr. 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 He completed his last dose of medication on April 04, about 2 weeks ago. Today, we received a call in the office that he had a high fever with some stones in his urine, so his mother was told to take him to the emergency room. MEDICATIONS: Over the 6-week period of treatment, he received meropenem 1 g IV every 8 hours which he did well with. Unfortunately, after the 2 weeks of no antibiotics, a urinary tract infection has returned. He had been started on cefepime which he has been resistant to in the past, so we will discontinue that and start him back on the meropenem as previously ordered. PHYSICAL EXAMINATION: Vital Signs: His mother states that at home his temperature was 105.7 degrees. Most recently here it was 99.6 with a pulse rate currently of 114, respiratory rate 16, blood pressure 107/65, O2 saturation 94% on 28% trach collar. General: This is a chronically ill-appearing young man, currently in no acute distress. HEENT: Oral mucous membranes are pink and moist. Conjunctivae are pink. Neck: Decrease in suppleness with tracheostomy noted. There is no redness or edema noted to the trach site. Respiratory: Lung sounds are clear to auscultation bilaterally. Cardiovascular: Heart rate and rhythm are regular and tachycardic. Sinus tachycardia on the monitor. Neurologic: The patient is nonverbal and unable to care for himself. He did smile when I asked him to. He has a history of cerebral palsy with multiple contractures to his extremities. Extremities: There is a PICC line in place to the right upper arm. That site is without edema, erythema, or drainage. Integumentary: Suprapubic catheter site is without any edema, erythema, or drainage. LABORATORY AND X-RAY: Today, his white count is 8.08, hemoglobin 10.4, platelet count 139,000. Creatinine is 1.1. Estimated GFR is greater than 60. Total bilirubin 0.81, AST 17, ALT 18, alkaline phosphatase 103. Creatine kinase is 24. His urinalysis showed yellow turbid urine with 4+ bacteria and white blood cells too numerous to count. There is a urine culture and blood cultures pending x2. Chest x-ray done this morning shows no pneumonia, with a tracheostomy tube and a right-sided PICC line. ASSESSMENT AND PLAN: Mr. Ruiz has been recently treated with 6 weeks of meropenem for a multidrug- resistant Pseudomonas urinary tract infection. We have discontinued cefepime due to the fact that he is usually resistant to cefepime. We have reinstituted meropenem 1 g IV every 8 hours as he was receiving at home, due to the fact that he was doing well on the meropenem. For now, we will continue to wait on the final urine and blood cultures for further treatment. We will have th microbiology department test the urine bacteria against Meropenem and Avycaz. These plans have been discussed with and recommended by Dr. Bush. Comorbidities for the patient include cerebral palsy, suprapubic catheter with frequent multidrug- resistant urinary tract infections. Dictated by MOIRA Del Cid for Shilo Bush MD cc: Shilo Bush MD MTDD
[2019-04-19] MEDS: COLACE PO SCH (20:32)
[2019-04-19] MEDS: ALLEGRA PO SCH (20:32)
[2019-04-19] MEDS: NEURONTIN PO SCH (20:32)
[2019-04-19] MEDS: COUMADIN PO SCH (20:33)
[2019-04-19] MEDS: LAMICTAL PO SCH (20:33)
[2019-04-19] MEDS: KLONOPIN PO SCH (20:33)
[2019-04-19] MEDS: NS 1,000 ML IV SCH (21:50)
--- NOTE | 2019-04-19 23:12 | PULMONOLOGY CONSULTATION ---
DATE: 04/19/2019 REASON FOR CONSULTATION: Respiratory failure and tracheostomy. HISTORY OF PRESENT ILLNESS: Mr. Ruiz is a 28-year-old white male, never-smoker, with a history of cerebral palsy with chronic hypoxemic respiratory failure and tracheostomy placement, after he was unable to maintain a patent airway. The patient has had difficulty with ongoing urinary tract infections and recently completed 6 weeks of meropenem for a multidrug-resistant pseudomonas. He has been off antibiotics for about 2 weeks. The patient was brought to the emergency room this morning after he developed a fever as high as 105 degrees. Mother reports he had an episode of fevers and chills with obvious sweating. Recent urine evaluation has indicated a cloudy/milky urine with stones identified. The patient's temperature in the emergency room was 102.4 degrees. His chest x-ray was clear. Urinalysis revealed turbid urine with [id number] white blood cells. He has been initiated on fluids and antibiotics by Dr. Bush. PAST MEDICAL HISTORY: Problem list: 1. Cerebral palsy. 2. Suprapubic catheter placement with recurrent urinary tract infections. 3. Seizure disorder. 4. GERD. 5. Scoliosis with straightening nancy surgery. 6. History of MRSA bacteremia which required removal of Port-A-Cath. 7. Status post PICC line placement in the right arm in 05/2018. 8. Status post tracheostomy as above. 9. Fundoplication. SOCIAL HISTORY: He lives with his parents. No alcohol or tobacco use. FAMILY HISTORY: Noncontributory. REVIEW OF SYSTEMS: Relatively limited. PHYSICAL EXAMINATION: Physical exam reveals a very thin white male with a BMI of 15. He is on 28% FIO2 and appears comfortable. Blood pressure 108/70, heart rate 121, respiratory rate 18, oxygen saturation 94%. HEENT: Pupils are equal. Oropharynx appears dry. Neck is supple. Chest reveals coarse crackles bilaterally. Cardiac exam: S1, S2. Abdomen is soft. Extremities without edema. LABORATORY DATA: White blood count as per HPI. Sodium 145, potassium 3.2, chloride 106, bicarbonate 24, BUN 17, creatinine 1.1. Arterial blood gas on 2 L: PH 7.41, pCO2 of 38, pO2 of 112. White blood count 8.0, hemoglobin 10.4, hematocrit 32.0, platelet count 139,000. DIAGNOSTIC DATA: Chest x-ray reveals tracheostomy in good position with no infiltrates identified. Urine culture and micro and blood cultures are pending. IMPRESSION: A 28-year-old with cerebral palsy, chronic hypoxemic respiratory failure and remote history of tracheostomy placement, who presents with fevers, urinary tract infection, and a peripherally inserted central catheter line that was placed approximately 10 months ago. Blood cultures and urine cultures are pending. RECOMMENDATIONS: 1. Continue tracheostomy without mechanical ventilation unless he shows signs of distress. 2. Continue oxygen supplemental through the tracheostomy collar. 3. Agree with antibiotics as outlined by Infectious Disease. He is currently on a carbapenem. 4. If urine culture and blood cultures are discordant, would consider removing PICC line. cc: Zechariah Marcleo MD
[2019-04-19] MEDS: LIORESAL PO SCH (23:34)
[2019-04-20 05:43] LABS: INR 1.27; PROTIME 16.9 Seconds (11.0-16.0)
[2019-04-20] MEDS: NS 1,000 ML IV SCH (05:54)
[2019-04-20 06:35] LABS: AGAP 5; ALB/GLOB RATIO 0.9; ALBUMIN 2.7 g/dL (3.5-5.0); ALKALINE PHOSPHATASE 70 U/L (32-122); BUN 15 mg/dL (8-22); CHLORIDE 113 mmol/L (98-107); COSMO 286; CREATININE 0.8 mg/dL (0.7-1.2); ESTIMATED GFR > 60; GLUCOSE 103 mg/dL (70-104); GOT 13 U/L (10-34); GPT 13 U/L (10-44); MAGNESIUM 1.6 mg/dL (1.5-2.7); SODIUM 143 mmol/L (136-145); TCO2 25 mmol/L (25-35); TOTAL BILIRUBIN 0.31 mg/dL (0.20-1.00); TOTAL PROTEIN 5.7 g/dL (6.3-8.3)
[2019-04-20] MEDS: XOPENEX NEB INH SCH ×4 (07:36→19:39)
[2019-04-20] MEDS: LIORESAL PO SCH ×3 (07:45→23:53)
[2019-04-20] MEDS: MERREM 1 GM in NS 50 ML IV SCH ×3 (07:45→23:53)
--- NOTE | 2019-04-20 07:53 | Diag Imaging Result Doc PS360 ---
CHEST-PORTABLE - 04/20/2019 INDICATION: fu COMPARISON: 04/19/2019 FINDINGS: Stable tracheostomy tube and right PICC line in good position. Stable severely low lung volumes. There is some worsening hazy infiltrate in the right lower lobe. There is central bronchovascular crowding stable from prior. Heart size is normal. IMPRESSION: Slight worsening right lower lobe infiltrate compatible with pneumonia. Electronically signed by Vladimir Frias 04/20/2019 7:51 AM
[2019-04-20 08:26] LABS: BASO# 0.02 X1000 (0.0-0.2); BASO% 0.5 % (0.0-0.8); EOS# 0.07 X1000 (0.0-0.7); EOS% 1.6 % (0.0-10.0); HEMATOCRIT 26.4 % (42.0-52.0); HEMOGLOBIN 8.3 g/dL (14.0-18.0); LYMPH# 1.03 X1000 (1.2-3.4); LYMPH% 23.4 % (20.5-51.1); MCH 24.2 PG (27-31); MCHC 31.4 g/dL (33-37); MONO# 0.43 X1000 (0.11-0.59); MONO% 9.8 % (1.7-9.3); NEUT# 2.86 X1000 (1.4-6.5); NEUT% 64.7 % (42.2-75.2); PLT 87 X1000 (130-400); RBC 3.43 XMIL (4.7-6.1); RDW 15.8 % (11.5-14.5); WBC 4.41 X1000 (4.8-10.8)
[2019-04-20] MEDS: SINGULAIR PO SCH (08:48)
[2019-04-20] MEDS: ALLEGRA PO SCH ×2 (08:48→20:21)
[2019-04-20] MEDS: NEURONTIN PO SCH ×2 (08:48→20:21)
[2019-04-20] MEDS: KLONOPIN PO SCH ×2 (08:48→20:21)
[2019-04-20] MEDS: LAMICTAL PO SCH ×2 (08:48→20:22)
[2019-04-20] MEDS: COLACE PO SCH ×2 (08:48→20:21)
[2019-04-20] MEDS: LR 1,000 ML IV SCH (08:55)
--- NOTE | 2019-04-20 12:27 | PROGRESS NOTE ---
DATE: 04/20/2019 INTERVAL HISTORY: Both of his blood cultures were growing gram-negative nancy. He was resuscitated with intravenous fluids. The patient's family is at bedside. According to them, patient has significantly improved since yesterday. We discussed about positive blood culture findings, urine infection, consulting Urology. I answered all of the patient's family members questions. The patient is nonverbal at bedside because of cerebral palsy, and does not contribute to the history meaningfully. VITALS: He was febrile yesterday morning, but since then has not had any fever episode with temperature of 98.5 degrees, pulse of 119, respiratory rate 16, blood pressure 107/82 and saturating 97% on trach collar with 5 L oxygen. We discussed about weaning it down as tolerated. PHYSICAL EXAMINATION: He does have facial deformity and squint related to cerebral palsy. Oral cavity is dry. The oral cavity is moist. Pupils bilaterally equal reacting to light.Lungs: Air entry bilaterally equal. No wheeze, rhonchi, crackles. Cardiovascular: S1, S2 normal. No murmur, rub, or gallop. Abdomen: Soft gaseous distention and tympanic to percussion. He had a suprapubic catheter, the site of which appears normal. The urine is appearing clear. He does not have any lower extremity edema. Input and output suggests 900 mL of urine yesterday. LABORATORY: He does have a drop in all of his including WBC, hemoglobin, and platelet count for which I am going to repeat his CBC tomorrow morning. MICROBIOLOGY: Blood cultures gram-negative rods. Urine culture: The final result is pending. Sputum culture is also pending. IMAGING: Chest x-ray performed today does suggest low lung volumes. I could not identify any appreciable infiltrate. ASSESSMENT AND PLAN: 1. Gram-negative sepsis due to suspected suprapubic catheter associated UTI. Change his fluids to intravenous lactated Ringer's contrary to considering hyperchloremia. I will consult Urology to evaluate for need for change of suprapubic catheter since it appears that she has sepsis from that source. Continue intravenous meropenem considering prior history of multiple drug-resistant bacteria according to ID recommendations. 2. Acute hypoxic respiratory failure on chronic hypoxic respiratory failure. He has baseline trach collar, but does not need oxygen. I discussed with the nursing team about weaning down oxygen as tolerated. Pulmonology has been consulted as well. Sputum culture is in lab. He does have really low lung volumes. I could not appreciate any identifiable infiltrate. 3. History of cerebral palsy and seizure disorder. I will continue his home medication of clonazepam, gabapentin, lamotrigine, and baclofen. 4. Others: Continue home medication of fexofenadine and montelukast as well. He has unclear indication of his warfarin. I discussed with the family and already discussing with the primary care doctor about discontinuing it as an outpatient. 5. Disposition. Patient's condition remains critical. More than 30 minutes of critical care time was spent in taking of this patient. All of the patient's family members' questions were answered satisfactorily. cc: Herson Polo MD MTDD
--- NOTE | 2019-04-20 12:27 | Diag Imaging Result Doc PS360 ---
US RENAL 2 (RETROPER) COMPLETE - 04/20/2019 INDICATION: check for obstruction TECHNIQUE: COMPARISON: 01/02/2018 FINDINGS: The exam is extremely challenging due to the patient's condition. The urinary bladder is decompressed by a Langley catheter. There is a stable renal cysts in the upper pole the right kidney. This measures 3.3 x 2.6 cm. No right-sided hydronephrosis. The right kidney measures 9.8 x 9.5 x 6.2 cm. The left kidney is obscured. IMPRESSION: No acute abnormality of the right kidney. Left kidney is obscured. Electronically signed by Vladimir Frias 04/20/2019 12:25 PM
--- NOTE | 2019-04-20 12:58 | INFECTIOUS DISEASE PROGRESS NO ---
DATE: 04/20/2019 PRESENT ILLNESS: The patient has a gram-negative nancy bacteremia. I think most likely this originates from a gram-negative nancy urinary tract infection, which unfortunately the patient is predisposed to get. It was noted that he does have some small stones in his urine, and he may have a block in his urinary tract. MEDICATIONS: Pending culture results, the patient is on meropenem, which he had before and he became afebrile. After the meropenem was stopped, the patient's fever came back. PHYSICAL EXAMINATION: Vital Signs: Temperature maximum was 102; it looks like it is 99 now, pulse 98, respirations 17, blood pressure 87/60. The patient is 5 feet 5 inches tall and weighs 91 pounds. General: This is a very thin male. He has cerebral palsy. He does not appear to be in any acute distress. Head/eyes/ears/nose/throat: No drainage noted from the nose or ears. Neck: The patient has a tracheostomy in place. Lungs: Clear to auscultation. Cardiovascular: Heart rate is regular. Abdomen and pelvis: Soft and nontender. The patient does have a suprapubic catheter in place. Neurologic: The patient has cerebral palsy. I have not heard him talk, but the people can communicate with him, and he can be fed food and he is able to chew it and swallow it. Integument: No bedsores noted. LAB AND X-RAY: Chest x-ray shows no pneumonia. Blood cultures are growing gram-negative nancy. Urine culture is pending. Liver function studies are normal. Urinalysis is positive for white cells and bacteria. ASSESSMENT AND PLAN: The patient has a gram-negative nancy bacteremia, most likely secondary to a gram-negative nancy urinary tract infection. I am going to continue meropenem for the present. I am going to ask the microbiology laboratory to send off the patient's gram- negative nancy for susceptibility testing to meropenem and Avycaz. Also the patient is scheduled to have a renal ultrasound to make sure that there is not some blockage in the urinary tract or an abscess. COMORBIDITY: The patient's main comorbidity is that he has a very severe case of cerebral palsy and is a total care patient. He is a lot of times in the bed, but can be moved around in a wheelchair. cc: Shilo Bush MD [facility]
[2019-04-20] MEDS ORDERED: FLEET ENEMA PR ONE (13:06)
[2019-04-20] MEDS ORDERED: FLEET ENEMA PR PRN (13:06)
[2019-04-20] MEDS ORDERED: STERILE WATER INJ. ONE (15:38)
[2019-04-20] MEDS: COUMADIN PO SCH (20:21)
--- NOTE | 2019-04-20 20:50 | OPERATIVE NOTE ---
PROCEDURE DATE: 04/20/2019 HISTORY OF PRESENT ILLNESS: This 28-year-old male, with multiple medical problems secondary due to cerebral palsy, has an indwelling suprapubic tube. He has had multiple urinary tract infections and is currently admitted with a probable urinary infection that has caused sepsis. Blood cultures grew gram-negative rods. He also has a PICC line that has been indwelling for the last 10 months. The patient has the indwelling suprapubic tube that is changed every 2 weeks by his mother. PHYSICAL EXAMINATION: Reveals a normally developed white male with obvious cerebral palsy, with some contractures, with the indwelling suprapubic tube. PROCEDURE: The suprapubic tube had its Langley balloon fluid removed, and a new 20-Moldovan Langley was easily passed into the bladder. 10 mL of sterile water was placed in the Langley's balloon. The Langley was placed to gravity drain. He tolerated this procedure well. cc: Yefri Restrepo MD
[2019-04-20] MEDS ORDERED: MYCOSTATIN POWDER TOP SCH (21:00)
[2019-04-20] MEDS: NON-FORMULARY MED TOP SCH (23:24)
--- NOTE | 2019-04-21 02:33 | PULMONOLOGY PROGRESS NOTE ---
DATE: 04/20/2019 SUBJECTIVE: The patient is more comfortable, according to family members. He does not interact with the examiner. OBJECTIVE: Vital Signs: Maximum temperature in the last 24 hours 102.4 degrees, current temperature 98.5 degrees, heart rate 111, blood pressure 106/69, oxygen saturation 98% on 2 L per nasal cannula. HEENT: Pupils are equal and reactive. Oropharynx appears clear. Neck: Supple. Chest: Reveals rhonchi at the right base. Cardiac: Increased rate, regular rhythm. Abdomen: Soft. Extremities: Without edema. LABORATORIES: White blood count 4.43, hemoglobin 8.3, platelet count 87,000. Sodium 143, potassium 4.0, chloride 113, BUN 15, creatinine 0.8. Urine cultures require more incubation. Sputum culture has 1+ gram-negative rods. Chest x-ray reveals increased infiltrate at the right base. IMPRESSION: A 28-year-old with cerebral palsy who presents with fevers, right lower lobe pneumonia, recurrent urinary tract infection. RECOMMENDATION: 1. Continue tracheostomy collar and supplemental oxygen. He does not have increased work of breathing at this juncture and does not need more aggressive intervention. 2. Continue bronchial hygiene. 3. Continue antibiotics per Infectious Disease. 4. Await culture report. cc: Zechariah Marcelo MD
[2019-04-21] MEDS: LR 1,000 ML IV SCH ×2 (05:34→20:47)
[2019-04-21 05:42] LABS: BASO# 0.02 X1000 (0.0-0.2); BASO% 0.4 % (0.0-0.8); EOS# 0.22 X1000 (0.0-0.7); HEMATOCRIT 26.3 % (42.0-52.0); HEMOGLOBIN 8.4 g/dL (14.0-18.0); LYMPH# 1.64 X1000 (1.2-3.4); LYMPH% 30.1 % (20.5-51.1); MCH 24.3 PG (27-31); MCHC 31.9 g/dL (33-37); MONO# 0.55 X1000 (0.11-0.59); MONO% 10.1 % (1.7-9.3); MPV 10.2 FL (7.4-10.4); NEUT# 3.01 X1000 (1.4-6.5); NEUT% 55.4 % (42.2-75.2); PLT 118 X1000 (130-400); RBC 3.46 XMIL (4.7-6.1); RDW 15.6 % (11.5-14.5); WBC 5.44 X1000 (4.8-10.8)
[2019-04-21 06:09] LABS: INR 1.16; PROTIME 15.7 Seconds (11.0-16.0)
[2019-04-21 06:16] LABS: AGAP 11; BUN 9 mg/dL (8-22); CALCIUM 8.1 mg/dL (8.8-10.2); CHLORIDE 109 mmol/L (98-107); COSMO 287; CREATININE 0.7 mg/dL (0.7-1.2); ESTIMATED GFR > 60; GLUCOSE 95 mg/dL (70-104); MAGNESIUM 1.7 mg/dL (1.5-2.7); POTASSIUM 3.7 mmol/L (3.5-5.1); SODIUM 145 mmol/L (136-145); TCO2 25 mmol/L (25-35)
[2019-04-21] MEDS: MERREM 1 GM in NS 50 ML IV SCH ×3 (07:10→20:47)
[2019-04-21] MEDS: KLOR-CON PO SCH ×2 (07:10→10:52)
[2019-04-21] MEDS: MAGNESIUM SULFATE 2 GM/S.W.I. 2 GM/50 ML IVPB IV SCH ×3 (07:10→10:47)
[2019-04-21] MEDS: XOPENEX NEB INH SCH ×6 (07:57→23:11)
[2019-04-21] MEDS: COLACE PO SCH ×2 (08:24→20:45)
[2019-04-21] MEDS: KLONOPIN PO SCH ×2 (08:25→20:49)
[2019-04-21] MEDS: NEURONTIN PO SCH ×2 (08:25→20:45)
[2019-04-21] MEDS: ALLEGRA PO SCH ×2 (08:25→20:48)
[2019-04-21] MEDS: LIORESAL PO SCH ×3 (08:25→23:45)
[2019-04-21] MEDS: LAMICTAL PO SCH ×2 (08:26→20:45)
[2019-04-21] MEDS: NON-FORMULARY MED TOP SCH (08:28)
[2019-04-21] MEDS: SINGULAIR PO SCH (08:29)
[2019-04-21] MEDS ORDERED: LOVENOX SUBQ SCH (09:00)
--- NOTE | 2019-04-21 09:53 | PROGRESS NOTE ---
DATE: 04/21/2019 INTERVAL HISTORY: No acute event overnight. His blood cultures continues to grow gram-negative rods. Urine culture also has gram-negative rods. Final results are pending. His suprapubic catheter was changed. His platelet count is stable without any overt signs of bleeding or severe anemia. SUBJECTIVE: The patient is nonverbal. Patient's mother is at bedside. Does not appear to be in acute distress. VITALS: Suggestive of temperature of 98.6 degrees, His pulse has been 84. His blood pressure of 90/60. He did have blood pressure of 80/50 overnight. He is saturating 99 to 100 percent on trach collar, which is at about 5 L. Input and output suggests he had 2.1 L urine yesterday. LABORATORY: Labs suggestive of microcytic anemia, and thrombocytopenia which is stable. His INR is 1.1. His BMP suggestive of improving hyperchloremia. Normal kidney function, slightly lower potassium and magnesium, which is currently being repleted. Microbiology: Urine and blood culture growing gram-negative rods. Repeat set of blood cultures have been ordered today. IMAGING: Renal ultrasound performed yesterday had no acute abnormality in the right kidney, and the left kidney was obscured. ASSESSMENT AND PLAN: 1. Gram-negative sepsis from suprapubic catheter associated UTI. Continue intravenous lactated Ringer's intravenous meropenem. Follow up final blood and urine culture results. Urology has changed his suprapubic catheter. Infectious Disease on board. 2. Acute hypoxic respiratory failure on chronic hypoxic respiratory failure. Patient does not appear to be in any distress. He does not use oxygen at home. He has a trach collar. We will try to titrate and wean down oxygen as tolerated. He does have low lung volumes, and sputum culture is in lab. I will follow up with final results to rule out any pneumonia. My suspicion is low. 3. History of cerebral palsy and seizure disorder. Continue home clonazepam, gabapentin, lamotrigine and baclofen. 4. Continue home fexofenadine and montelukast for allergies; I have stopped his warfarin as there were no clear indications for it. I will continue enoxaparin for DVT prophylaxis. DISPOSITION: The patient's condition remains critical. More than 30 minutes of critical care time was spent in taking care of this patient. All of the patient's mother at bedside. All questions were answered satisfactorily. Considering patient did have hypotensive episode, I am going to keep him inside the ICU for closer monitoring. Patient's mother did not want us to give Enoxaparin for DVT prophylaxis. She only wanted us to continue his home coumadin that he was taking for prophylaxis against PICC line associated DVT. I discussed with her about DVT risk in critically ill patients, inadequate effectiveness of warfarin in preventing DVTs. She understood it and still wants me to continue his home dose of warfarin. cc: Herson Polo MD MTDD
--- NOTE | 2019-04-21 18:00 | PULMONOLOGY PROGRESS NOTE ---
DATE: 04/21/2019 SUBJECTIVE: The patient appears to be resting comfortably. He has been afebrile for the last 24 hours. OBJECTIVE: Vital Signs: Blood pressure 108/73, respiratory rate 17, heart rate 106, oxygen saturation 95% on tracheal collar. HEENT: Pupils are equal and reactive. Oropharynx is clear. Neck: Supple. Chest: Rhonchi bilaterally. Cardiac: S1, S2. Abdomen: Soft. Extremities: Without edema. LABORATORIES: Current sputum culture reveals normal aleksandr. Urine cultures reveal gram-negative rods. Blood culture reveals gram-negative nancy. White blood count 5.44, hemoglobin 8.4, platelet count 118,000. Chemistry: Sodium 145, potassium 3.7, chloride 109, bicarbonate 25, BUN 9, creatinine 0.7. IMPRESSION: A 28-year-old with: 1. Right lower lobe pneumonia. 2. Fevers. 3. Recurrent urinary tract infection. 4. Long history of cerebral palsy. PLAN: 1. Continue tracheostomy collar and supplemental oxygen. 2. Continue bronchial hygiene. 3. Continue antibiotics. 4. Followup chest x-ray tomorrow morning. cc: Zechariah Marcelo MD
[2019-04-21] MEDS: COUMADIN PO SCH (20:45)
[2019-04-21] MEDS: MYCOSTATIN POWDER TOP SCH (20:54)
[2019-04-22] MEDS: MERREM 1 GM in NS 50 ML IV SCH ×2 (01:19→06:41)
[2019-04-22] MEDS: LR 1,000 ML IV SCH ×4 (01:20→20:45)
[2019-04-22] MEDS: LIORESAL PO SCH ×3 (01:20→15:05)
[2019-04-22] MEDS: XOPENEX NEB INH SCH ×5 (07:22→23:21)
[2019-04-22] MEDS: NS NEB INH SCH ×3 (07:23→15:39)
[2019-04-22] MEDS: ZOSYN 3.375 GM in NS 50 ML IV SCH ×3 (08:14→18:29)
[2019-04-22] MEDS: MYCOSTATIN POWDER TOP SCH ×2 (08:14→20:33)
[2019-04-22] MEDS: COLACE PO SCH ×2 (08:15→20:32)
[2019-04-22] MEDS: ALLEGRA PO SCH ×2 (08:15→20:31)
[2019-04-22] MEDS: LAMICTAL PO SCH ×2 (08:16→20:31)
[2019-04-22] MEDS: NEURONTIN PO SCH ×2 (08:17→20:32)
[2019-04-22] MEDS: KLONOPIN PO SCH ×2 (08:17→20:32)
[2019-04-22] MEDS: SINGULAIR PO SCH (08:17)
--- NOTE | 2019-04-22 11:50 | PROGRESS NOTE ---
DATE: 04/22/2019 INTERVAL HISTORY: His blood culture is growing Serratia and urine culture is growing Pseudomonas. Sputum culture is also growing gram-negative rods. He does have low blood pressure overnight. However, his MAPs were more than 60 mmHg most occasions. According to patient's mother, patient appears to be pretty close to his baseline. No other acute events overnight. We discussed about PICC line and possibly removing PICC line and that I am awaiting discussion with Infectious Disease. The patient is nonverbal at bedside. OBJECTIVE: Vital signs: Currently afebrile with temperature of 98.7 degrees, pulse of 89, respiratory rate 16, blood pressure, he is maintaining MAP more than 65 mmHg most occasions, he saturating 96% on trach collar. Input and output suggests he had adequate urine output of 3.5 L in the last 24 hours. LABORATORY DATA: Suggestive of no leukocytosis, microcytic anemia, mild thrombocytopenia, which were labs which were drawn yesterday, and I will order iron studies to be performed for tomorrow. MICROBIOLOGY: Blood culture is growing Serratia sensitive to 3rd generation cephalosporins. Urine culture is growing Pseudomonas aeruginosa sensitive to Zosyn. Repeat blood cultures are in lab. Sputum culture growing gram-negative rods. ASSESSMENT AND PLAN: 1. Serratia sepsis, Pseudomonas urinary tract infection, gram-negative right lower lobe pneumonia, suprapubic catheter-associated urinary tract infection from Pseudomonas. Continue intravenous lactated Ringer's and increase the rate considering his hypotension. His intravenous meropenem has been changed to intravenous Zosyn by Infectious Disease doctor. Will appreciate recommendation about PICC line removal. His suprapubic catheter was already changed. 2. Acute hypoxic respiratory failure because of right lower lobe pneumonia. Continue oxygenation through trach collar. Pulmonology on board and I will try to wean down oxygen as tolerated. 3. History of cerebral palsy and seizure disorder. Continue home clonazepam, gabapentin, lamotrigine and baclofen. 4. Others. Continue home fexofenadine and montelukast for allergies, warfarin to prevent PICC line-associated DVT, which was his home medication, and the patient's mother refuses any other anticoagulation for DVT prophylaxis. DISPOSITION: The patient's condition appears to have stabilized and my plan is to transfer him to [facility] today if his blood pressure is okay. Plan of care discussed with the patient's mother. All of her questions have been answered. I will continue him on regular diet. cc: Herson Polo MD
--- NOTE | 2019-04-22 16:43 | INFECTIOUS DISEASE PROGRESS NO ---
DATE: 04/22/2019 PRESENT ILLNESS: The patient has a Serratia bacteremia and a Pseudomonas urinary tract infection. He has a right lower lobe infiltrate that is a pneumonia and from his sputum he is growing a gram- negative nancy which has not yet been identified. MEDICATIONS: The meropenem that he is on should cover the Serratia and the Pseudomonas the patient has, but I am going to go ahead and switch him to Zosyn and save meropenem in case the patient should develop an extended spectrum beta lactamase producing organism. PHYSICAL EXAMINATION: Vital Signs: Temperature is 98.7 degrees, pulse 89, respirations 16, blood pressure 104/74. General: This is an ill-appearing young male. He has very severe cerebral palsy. He does not appear to be in any acute distress. Vital signs: Temperature is 98.7 degrees, pulse 89, respirations 16, blood pressure 104/74. The patient is 5 feet 5 inches tall, weighs 91 pounds. General: This is an ill-appearing and somewhat malnourished-appearing young male. He is in no acute distress. Head/eyes/ears/nose/throat: He does not have any drainage coming from his nose or ears. I could not get a good view of his mouth. Neck: The patient has a permanent tracheostomy in place. Lungs: Clear to auscultation. Cardiovascular: Heart rate is regular. Abdomen and pelvis: Soft and nontender. The patient has a suprapubic catheter in place. The site is not erythematous or purulent. Neurologic: As mentioned above, the patient has cerebral palsy. He is able to move his arms. I did not see him move his legs. Integument: No rash or bedsores. LAB AND X-RAY: As mentioned above, the patient's urine is growing Pseudomonas, the blood is growing Serratia and the sputum is growing a gram-negative nancy that has not been identified yet. The patient's CBC shows a white count of 5440, hemoglobin 8.4, and platelet count 118,000. Creatinine is 0.7. GFR is greater than 60. Renal ultrasound showed a normal right kidney, but the left kidney was obscured. Chest x-ray shows a right lower lobe pneumonia. ASSESSMENT AND PLAN: The patient has a Pseudomonas urinary tract infection, a Serratia bacteremia and a gram-negative nancy pneumonia. As I mentioned above, I have discontinued meropenem and placed the patient on Zosyn. I have ordered for the patient's peripherally inserted central catheter to be removed now and tomorrow morning I have ordered repeat blood cultures. COMORBIDITIES: The patient has a very severe case of cerebral palsy and is a total care patient. cc: Shilo Bush MD MTDD
--- NOTE | 2019-04-22 17:04 | INFECTIOUS DISEASE PROGRESS NO ---
DATE: 04/22/2019 ADDENDUM: In view of all the infections the patient has, I am going to go ahead and check his immunoglobulin levels to see if he has an immunoglobulin deficiency. cc: Shilo Bush MD
--- NOTE | 2019-04-22 19:03 | PULMONOLOGY PROGRESS NOTE ---
DATE: 04/22/2019 SUBJECTIVE: The patient is awake, alert. He appears to be comfortable. He is not interactive. OBJECTIVE: Vital signs: The patient has been afebrile for the last 24 hours. Blood pressure 104/74, respiratory rate 16, heart rate 89. HEENT: Pupils are equal and reactive. Oropharynx appears clear. Neck: Supple, with tracheostomy in place. Chest: Reveals occasional rhonchi bilaterally. Cardiac: S1, S2. Abdomen: Soft, with good bowel sounds. Extremities: Without edema. LABORATORIES: Blood culture reveals Serratia fonticola. Urine culture reveals Pseudomonas aeruginosa. Sputum culture is growing a gram-negative nancy with identification pending. IMPRESSION: A 28-year-old with: 1. Right lower lobe pneumonia. 2. Urinary tract infection. 3. Bacteremia/septicemia. 4. Status post tracheostomy. RECOMMENDATIONS: 1. Continue tracheostomy with supplemental oxygen. 2. Continue bronchial hygiene. 3. Await final culture report on sputum. 4. Continue antibiotics per Infectious Disease. 5. The patient is a candidate for transfer to the floor or the [facility] from a pulmonary standpoint. cc: Zechariah Marcelo MD
[2019-04-22] MEDS: COUMADIN PO SCH (20:32)
[2019-04-23] MEDS: LIORESAL PO SCH ×4 (00:11→20:15)
[2019-04-23] MEDS: ZOSYN 3.375 GM in NS 50 ML IV SCH ×4 (02:00→18:31)
[2019-04-23 05:48] LABS: BASO# 0.07 X1000 (0.0-0.2); BASO% 1.2 % (0.0-0.8); EOS# 0.35 X1000 (0.0-0.7); HEMATOCRIT 31.2 % (42.0-52.0); HEMOGLOBIN 9.9 g/dL (14.0-18.0); LYMPH# 2.42 X1000 (1.2-3.4); LYMPH% 41.6 % (20.5-51.1); MCH 24.7 PG (27-31); MCHC 31.7 g/dL (33-37); MCV 77.8 FL (81-99); MONO# 0.29 X1000 (0.11-0.59); MPV 9.8 FL (7.4-10.4); NEUT# 2.69 X1000 (1.4-6.5); NEUT% 46.2 % (42.2-75.2); PLT 254 X1000 (130-400); RBC 4.01 XMIL (4.7-6.1); RDW 15.3 % (11.5-14.5); WBC 5.82 X1000 (4.8-10.8)
[2019-04-23 06:26] LABS: AGAP 12; BUN 11 mg/dL (8-22); CHLORIDE 107 mmol/L (98-107); COSMO 283; CREATININE 0.8 mg/dL (0.7-1.2); ESTIMATED GFR > 60; GLUCOSE 78 mg/dL (70-104); IRON SATURATION 19 %; MAGNESIUM 1.8 mg/dL (1.5-2.7); POTASSIUM 4.3 mmol/L (3.5-5.1); SODIUM 143 mmol/L (136-145); TCO2 24 mmol/L (25-35); TIBC 216 ug/dL; TOTAL IRON 41 ug/dL (53-167); UNBOUND IRON 175 ug/dL (112-346)
[2019-04-23 06:39] LABS: FERRITIN 51 ng/mL (30-400)
[2019-04-23] MEDS: NS NEB INH SCH (07:41)
[2019-04-23] MEDS: XOPENEX NEB INH SCH ×5 (07:41→23:08)
--- NOTE | 2019-04-23 07:49 | Diag Imaging Result Doc PS360 ---
CHEST-PORTABLE - 04/23/2019 INDICATION: abnormal exam COMPARISON: 04/20/2019 FINDINGS: Stable tracheostomy tube. The lungs are clear. Heart size is normal. No pneumothorax or pleural effusion. IMPRESSION: Negative exam. Electronically signed by Vladimir Frias 04/23/2019 7:46 AM
[2019-04-23] MEDS: KLONOPIN PO SCH ×2 (08:05→20:14)
[2019-04-23] MEDS: ALLEGRA PO SCH ×2 (08:06→20:14)
[2019-04-23] MEDS: NEURONTIN PO SCH ×2 (08:07→20:15)
[2019-04-23] MEDS: SINGULAIR PO SCH (08:07)
[2019-04-23] MEDS: LAMICTAL PO SCH ×2 (08:07→20:15)
[2019-04-23] MEDS: COLACE PO SCH ×2 (08:07→20:14)
[2019-04-23] MEDS: MYCOSTATIN POWDER TOP SCH ×2 (09:23→20:15)
[2019-04-23] MEDS: LR 1,000 ML IV SCH ×2 (09:23→20:16)
--- NOTE | 2019-04-23 09:32 | PROGRESS NOTE ---
DATE: 04/23/2019 INTERVAL HISTORY: I had kept him in ICU yesterday because of his low blood pressure. His PICC line was removed because of Serratia bacteremia. His sputum is growing gram-negative rods. His blood pressure was otherwise stable overnight. No other acute overnight events. SUBJECTIVE: Patient is nonverbal, does not appear in acute distress. According to patient's mother, he is in good spirits. OBJECTIVE: Vital Signs: Temperature of 97.9 degrees, without any fever episode, pulse of 94, respiratory rate 16, blood pressure 110/66, saturating 96% on trach collar for humidification. General: Does not appear in acute distress. Mouth: Oral cavity is moist. Lungs: Air entry bilaterally equal. No wheeze, rhonchi, or crackles. Cardiovascular: S1, S2 normal. No murmur or gallop. Abdomen: Soft, nontender. Suprapubic catheter is in place. Extremities: No lower extremity edema. He has a tracheostomy with trach collar on. He has a suprapubic catheter draining appropriately. INPUT AND OUTPUT: Suggest positive 500 mL balance so far. LABORATORIES: Suggestive of microcytic anemia, normal platelet count. He does have normal BMP. The iron studies suggest ferritin is within acceptable range and total iron-binding capacity is also normal. Microbiology, sputum is growing Pseudomonas aeruginosa. Repeat blood cultures are in laboratory. ASSESSMENT AND PLAN: 1. Serratia sepsis, likely from PICC line, Pseudomonas urinary tract infection and Pseudomonas right lower lobe pneumonia with suprapubic catheter associated UTI from Pseudomonas. Continue intravenous lactated Ringer's as patient takes it at home. Continue intravenous Zosyn as per Infectious Disease recommendation. His suprapubic catheter was already changed. Duration of antibiotic according to Infectious Disease recommendation. 2. Acute hypoxic respiratory failure because of right lower lobe pneumonia. His oxygenation has stabilized. His chest x-ray appears clear. 3. History of cerebral palsy and seizure disorder. Continue home clonazepam, gabapentin, lamotrigine and baclofen. 4. Others. Continue home fexofenadine and montelukast; warfarin to prevent PICC line-associated DVT, which was his home medication. After discussion with the family, I will consider discontinuing it. However, family did not want him to get any DVT prophylaxis. 5. Disposition. I will transfer this patient to [facility]. Plan of care discussed with patient and mother. All of her questions have been answered. cc: Herson Polo MD
--- NOTE | 2019-04-23 14:34 | PULMONOLOGY PROGRESS NOTE ---
DATE: 04/23/2019 SUBJECTIVE: Bertin is awake and alert. He is not interactive with this practitioner. OBJECTIVE: Vital Signs: The patient has been afebrile for the last 24 hours. Blood pressure 104/64, heart rate 91, respiratory rate 11, oxygen saturation 97% and on a trach collar. HEENT: Pupils are equal and reactive. Oropharynx is clear. Neck: Supple. Chest: Reveals occasional rhonchi. Cardiac: S1, S2. Abdomen: Soft. Extremities: Reveal significant muscle wasting. LABORATORIES: White blood count 5.82, hemoglobin 9.9, platelet count 254,000. Sodium 143, potassium 4.3, chloride 107, bicarbonate 24, BUN 11, creatinine 0.8. Chest x-ray reveals tracheostomy in good position. Visualized lung gates appear clear. IMPRESSION: A 28-year-old with: 1. Right lower lobe pneumonia. This is below the diaphragm, not easily seen on chest x-ray, but can be seen on CT scanning. 2. Urinary tract infection. 3. Bacteremia/septicemia. 4. Status post tracheostomy placement. PLAN: 1. Continue antibiotics in the direction of Infectious Disease. 2. Continue bronchial hygiene. 3. Continue oxygen through tracheostomy. 4. Okay for transfer to the floor. He continues to improve. cc: Zechariah Marcelo MD
--- NOTE | 2019-04-23 14:38 | INFECTIOUS DISEASE PROGRESS NO ---
DATE: 04/23/2019 PRESENT ILLNESS: The patient has a Serratia bacteremia which I think originated from the patient's PICC. The patient has a Pseudomonas urinary tract infection, and he also has a Pseudomonas pneumonia. The sputum culture was growing a gram-negative nancy, and it was identified as Pseudomonas. MEDICATIONS: The patient is on Zosyn; this is day 1 of treatment with Zosyn. Today repeat blood cultures have been drawn also. PHYSICAL EXAMINATION: Vital Signs: Temperature is 97.6 degrees, pulse 84, respirations 15, blood pressure 94/63. General: This is an ill-appearing, somewhat malnourished- appearing, young male, but he does not appear to be in any acute distress. Head/eyes/ears/nose/throat: He does not have any drainage from his nose or ears. His eyes are open, and he seems to be tracking with them. Neck: The patient has a permanent tracheostomy in place. Lungs: Clear to auscultation. Cardiovascular: Heart rate is regular. Abdomen and Pelvis: Soft and nontender. The patient has a suprapubic catheter in place. Neurologic: The patient has cerebral palsy. He is able to move his arms. There is no tremor. Integument: No rash or bedsore. LABORATORY AND X-RAY: CBC shows a white count of 5820, hemoglobin 9.9, and platelet count 254,000. Creatinine 0.8, GFR is greater than 60. The sputum is growing Pseudomonas as mentioned above. Chest x-ray shows clear lung gates. Repeat blood cultures were ordered today. ASSESSMENT AND PLAN: The patient has a Pseudomonas urinary tract infection and pneumonia and a Serratia bacteremia. My plan is to continue with Zosyn for at least 2 weeks with day #1 being the first day that the patient's repeat blood cultures are sterile. COMORBIDITIES: The patient has cerebral palsy and is a total care patient. cc: Shilo Bush MD MTDChristine
[2019-04-23] MEDS: COUMADIN PO SCH (20:15)
[2019-04-24] MEDS: ZOSYN 3.375 GM in NS 50 ML IV SCH ×4 (00:43→21:44)
[2019-04-24] MEDS: SINGULAIR PO SCH (08:30)
[2019-04-24] MEDS: NEURONTIN PO SCH ×2 (08:30→21:45)
[2019-04-24] MEDS: MYCOSTATIN POWDER TOP SCH ×2 (08:30→21:46)
[2019-04-24] MEDS: COLACE PO SCH ×2 (08:31→21:45)
[2019-04-24] MEDS: KLONOPIN PO SCH ×2 (08:31→21:44)
[2019-04-24] MEDS: ALLEGRA PO SCH ×2 (08:31→21:44)
[2019-04-24] MEDS: LIORESAL PO SCH ×3 (08:33→21:45)
[2019-04-24] MEDS: LAMICTAL PO SCH ×2 (08:37→21:44)
[2019-04-24] MEDS: XOPENEX NEB INH SCH ×5 (09:47→23:36)
[2019-04-24] MEDS: LR 1,000 ML IV SCH ×2 (09:57→22:50)
--- NOTE | 2019-04-24 11:22 | PROGRESS NOTE ---
DATE: 04/24/2019 INTERVAL HISTORY: No acute events overnight. His blood cultures from April 21 have not shown any growth to date. Repeat blood cultures drawn on April 23 are still pending. SUBJECTIVE: The patient is nonverbal. The mother is curious about whether patient would get another PICC line or a Mccauley catheter. I conveyed to her that this discussion should be held with infectious disease doctor and I would appreciate their recommendation. VITALS: Currently, temperature 97.6 degrees, pulse 87, respiratory rate 12, blood pressure 110/71, saturating 95% on room air. PHYSICAL EXAMINATION: He is nonverbal at baseline. Oral cavity is moist. Lungs: Air entry bilaterally equal. No wheeze, rhonchi, or crackles. Cardiovascular: S1, S2 normal. No murmur, rub, or gallop. Abdomen: Soft, nontender. Suprapubic catheter is in place. No lower extremity edema. He has a tracheostomy with trach collar on. He has a suprapubic catheter draining appropriately. Input and output suggests he was a positive 500 mL yesterday and positive 450 mL so far today. LABS: No CBC or BMP today. ASSESSMENT AND PLAN: 1. Serratia sepsis likely from peripherally inserted central catheter line, pseudomonas urinary tract infection associated with SPC, and pseudomonas right lower lobe pneumonia . Continue intravenous lactated Ringer's as patient takes it at every nighttime at home. Continue intravenous Zosyn as per infectious disease recommendation. I will appreciate infectious disease recommendation about need for intravenous access for 14 days of antibiotics. His suprapubic catheter was changed and old peripherally inserted central catheter line was removed. 2. Acute hypoxic respiratory failure because of right lower lobe pneumonia, now improving. He is on Zosyn for pseudomonas in sputum. 3. History of cerebral palsy and seizure disorder. Continue home clonazepam, gabapentin, lamotrigine, and baclofen. 4. Others. Continue home fexofenadine and montelukast; warfarin to prevent peripherally inserted central catheter line-associated deep venous thrombosis which patient was taking at home. 5. Disposition. The patient has transferred to [facility]. Order pending. Plan of care discussed with mother. All of her questions have been answered. cc: MD EMELINA Clark
--- NOTE | 2019-04-24 14:35 | INFECTIOUS DISEASE PROGRESS NO ---
DATE: 04/24/2019 PRESENT ILLNESS: The patient has a Serratia bacteremia and a Pseudomonas urinary tract infection and pneumonia. MEDICATIONS: The patient is on Zosyn. PHYSICAL EXAMINATION: Vital Signs: Temperature is 97.2 degrees, pulse 98, respirations 11, blood pressure 114/70. General: This is an ill-appearing, young male. He is in no acute distress. Head, eyes, ears, nose, and throat: He does not have any drainage coming from his nose or ears. I could not really see his mouth well. Neck: He has a tracheostomy in place. Lungs: Clear to auscultation. Cardiovascular: Regular heart rate. Abdomen and pelvis: Abdomen is soft and not tender. The patient has a suprapubic catheter in place. The site is not purulent. Neurologic: Patient has cerebral palsy. He does not have any tremor. He is able to move his arms. Integument: No rash noted. LAB AND X-RAY: There is no new lab for today. The patient's repeat blood cultures are sterile. ASSESSMENT AND PLAN: My plan is to have a Mccauley catheter installed by Dr. Joselius Shrestha and then the patient will go home on Zosyn 3.375 g IV every 6 hours for 14 days. The patient's Zosyn will be treating his bacteremia, urinary tract infection, and pneumonia. COMORBIDITIES: The patient has cerebral palsy and is a total care patient. cc: Shilo Bush MD
--- NOTE | 2019-04-24 20:06 | PULMONOLOGY PROGRESS NOTE ---
DATE: 04/24/2019 SUBJECTIVE: The patient appears arousable to awake. He does not follow my commands. Family is attempting oral intake. He appears to have some tracheal spillage. OBJECTIVE: Vital Signs: The patient has been afebrile over the last 24 hours. Blood pressure 102/56, heart rate 91, respiratory rate 14, oxygen saturation 92% on trach collar. HEENT: Pupils are equal and reactive. Oropharynx appears clear. Neck: Supple. No drainage around the tracheostomy site. Chest: Reveals occasional rhonchi bilaterally. Cardiac exam: S1-S2. Abdomen: Soft. Extremities: Without edema. IMPRESSION: A 28-year-old with cerebral palsy, chronic tracheostomy, with pseudomonal pneumonia, pseudomonal urinary tract infection, Serratia bacteremia. RECOMMENDATIONS: 1. Continue current antibiotic regimen per Dr. Shilo Bush. Anticipation of Port-A-Cath placement by Dr. Joseluis Shrestha. 2. Continue oxygen per tracheostomy. 3. Follow up chest x-ray tomorrow morning. cc: Zechariah Marcelo MD
[2019-04-24] MEDS: COUMADIN PO SCH (21:44)
[2019-04-25] MEDS: ZOSYN 3.375 GM in NS 50 ML IV SCH ×3 (02:30→12:52)
[2019-04-25 07:24] LABS: BASO# 0.04 X1000 (0.0-0.2); BASO% 0.7 % (0.0-0.8); EOS# 0.28 X1000 (0.0-0.7); EOS% 4.6 % (0.0-10.0); HEMATOCRIT 32.3 % (42.0-52.0); HEMOGLOBIN 10.1 g/dL (14.0-18.0); LYMPH# 1.77 X1000 (1.2-3.4); LYMPH% 29.2 % (20.5-51.1); MCH 23.9 PG (27-31); MCHC 31.3 g/dL (33-37); MCV 76.5 FL (81-99); MONO# 0.34 X1000 (0.11-0.59); MONO% 5.6 % (1.7-9.3); MPV 8.9 FL (7.4-10.4); NEUT# 3.63 X1000 (1.4-6.5); NEUT% 59.9 % (42.2-75.2); PLT 307 X1000 (130-400); RBC 4.22 XMIL (4.7-6.1); RDW 15.5 % (11.5-14.5); WBC 6.06 X1000 (4.8-10.8)
[2019-04-25 07:40] LABS: INR 1.06; PROTIME 14.6 Seconds (11.0-16.0)
[2019-04-25] MEDS: LIORESAL PO SCH (07:46)
[2019-04-25 07:47] LABS: AGAP 8; BUN 8 mg/dL (8-22); CALCIUM 8.9 mg/dL (8.8-10.2); CHLORIDE 106 mmol/L (98-107); COSMO 281; CREATININE 0.9 mg/dL (0.7-1.2); ESTIMATED GFR > 60; GLUCOSE 87 mg/dL (70-104); POTASSIUM 4.2 mmol/L (3.5-5.1); SODIUM 142 mmol/L (136-145); TCO2 28 mmol/L (25-35)
[2019-04-25] MEDS: XOPENEX NEB INH SCH ×2 (08:00→11:30)
[2019-04-25] MEDS: KLONOPIN PO SCH (08:20)
[2019-04-25] MEDS: LAMICTAL PO SCH (08:21)
[2019-04-25] MEDS: ALLEGRA PO SCH (08:28)
[2019-04-25] MEDS: NEURONTIN PO SCH (08:29)
[2019-04-25] MEDS: COLACE PO SCH (08:29)
[2019-04-25] MEDS: MYCOSTATIN POWDER TOP SCH (08:29)
[2019-04-25] MEDS: SINGULAIR PO SCH (08:29)
--- NOTE | 2019-04-25 10:24 | DISCHARGE SUMMARY ---
ADMISSION DATE: 04/19/2019 DISCHARGE DATE: 04/25/2019 ADMISSION DIAGNOSES: 1. Sepsis secondary to urinary tract infection. 2. Acute Hypoxic respiratory failure on trach collar. 3. Mild hypokalemia. 4. Cerebral palsy. 5. Seizure disorder. 6. Frequent urinary tract infections. 7. Gastroesophageal reflux disease. DISCHARGE DIAGNOSES: 1. Serratia sepsis likely from peripherally inserted central catheter line. 2. Pseudomonas urinary tract infection associated with SPC and pseudomonas right lower lobe pneumonia. He got his suprapubic catheter changed out. He is getting a new PICC line today and he is going home with 2 weeks of Zosyn. 3. Acute hypoxemic respiratory failure because of right lower lobe pneumonia, now improving. 4. History of cerebral palsy and seizure disorder. 5. To prevent peripherally inserted central line catheter deep venous thrombosis, the patient has been on warfarin at home and that is continued. CONSULTATIONS: 1. Dr. Zechariah Marcelo for hypoxemia. 2. Dr. Isaiah Scott for changes and suprapubic catheter management. 3. Dr. Joseluis Shrestha for a Mccauley catheter. 4. Dr. Shilo Bush for frequent UTIs, bacteremia, pneumonia. SURGERIES AND PROCEDURES: 04/20/[address] Yefri Restrepo, replacement the suprapubic catheter with a new 20 [place]y that was easily passed into the bladder. He did not get a Mccauley catheter on this admission. HOSPITAL COURSE: On 04/19/2019, Mr. Bertin Ruiz, a 28-year-old male with a medical history of cerebral palsy and seizure disorder along with frequent urinary tract infections secondary to suprapubic catheter, he is bedbound, has a tracheostomy with trach collar for oxygen support, presented to the emergency department as the mother stated he started running a fever the morning of presentation. Apparently she stated it was up to 105 degrees Fahrenheit, having chills and sweating and being very lethargic, sleeping a lot with decreased urine output. The urine was cloudy with stones and mucus and according to mother, patient gets fluids every night and for 3 nights in a row, they had also to use an enema to relieve constipation. He did present to [facility] ER with 102 degrees fever, tachycardia, abnormal urinalysis, elevated lactate, some mild hypokalemia. He was transferred to the ICU for close observation and was started on broad-spectrum antibiotics and Dr. Bush at that time was consulted for treatment of chronic urinary tract infections. Also, Dr. Marcelo was consulted as the patient was having low oxygenation on his trach collar and was eventually found to have a right lower lobe pneumonia. In addition to that, the urine came back positive for Pseudomonas. The sputum came back for Pseudomonas as well and then there was Serratia sepsis in the bloodstream that was due to a PICC line that was in place on presentation. Due to the infection that he had in the bladder that tends to be chronic, Dr. Restrepo replaced the suprapubic catheter that he presented with, with a new one on 04/20/2019. Also secondary to the Serratia bacteremia from the PICC line that he presented with, a new PICC line was placed and it will be placed today prior to discharge home. Dr. Bush followed along with plans for Zosyn at least 2 weeks' worth or more depending on blood cultures. He wants repeat blood cultures. The first set of repeat blood cultures that are sterile, are without infection, that will be day 1 of 2 weeks of Zosyn. The right lower lobe pneumonia was not easily seen on a chest x- ray but CT scan was performed while he was here which did show the pneumonia. He continued on humidified oxygen, trach collar for the tracheostomy and he will continue that at home as well. DISCHARGE VITAL SIGNS: Temperature 98.2 degrees, heart rate 73, respiratory rate 22, blood pressure at 6:00 a.m. was 111/64 but it does look like he frequently runs anywhere from 80 up to as high as 121, but primarily 80s and 90s is his baseline blood pressure systolically. Now he is down to trach collar 5 liters of oxygen with O2 saturation 97-100%. DISCHARGE LABORATORY DATA: White blood cells 6,000, hemoglobin 10, hematocrit 32, platelet count 307,000. INR is 1.06. Sodium 142, potassium 4.2, BUN 8, creatinine 0.9, glucose 87, calcium 8.9, magnesium 2.0. He also had immunoglobulin levels drawn and all were within normal range. He did have a low iron level but just mildly low at 41. MICROBIOLOGY: Blood culture showed Serratia. It was only resistant to cefazolin, sensitive to everything else. That was on 04/19/2019 and then also 04/19/2019 had urine culture which revealed Pseudomonas aeruginosa which was resistant to amikacin, cefepime, gentamicin and levofloxacin. It was indeterminate resistant to ceftazidime but sensitive to Zosyn and tobramycin. On 04/20/2019, his sputum culture was obtained which also showed Pseudomonas aeruginosa which was resistant to cefepime, ceftazidime and levofloxacin. It is sensitive to the Zosyn. Had a set of blood cultures on 04/21/2019 that were no growth and again on 04/23/2019, no growth on those blood cultures. PERTINENT IMAGIN04/19/2019, chest x-ray, no pneumonia. 04/20/2019, chest x- ray, slightly worsening right lower lobe infiltrate compatible with pneumonia. Chest x-ray 04/23/2019, negative exam. Renal ultrasound 04/20/2019, no acute abnormality of the right kidney. Left kidney was obscured. EKG on 04/19/2019, sinus tachycardia. Rate was 157. QTc 365. It looks like the chest x- ray showed the right lower lobe pneumonia, there was no chest CT performed on this admission. DISCHARGE MEDICATIONS: 1. Zosyn via new PICC line which includes 3.375 grams IV q.6 hours for at least 2 weeks after the first negative blood culture. 2. Coumadin 1 mg p.o. nightly. This is DVT prophylaxis for chronic PICC line. 3. Klonopin 0.5 mg p.o. nightly. 4. Lamictal 150 mg p.o. nightly. 5. Neurontin 300 mg p.o. nightly . 6. Jessie 60 mg p.o. twice daily. 7. Baclofen 40 mg p.o. t.i.d. 8. Colace 100 mg p.o. twice daily. 9. Klonopin 0.25 mg p.o. daily. 10.Lamictal 100 mg p.o. daily. 11.Neurontin 100 mg p.o. in the morning. 12.Singulair 10 mg p.o. daily. DISCHARGE DIET: He was made NPO except meds for this morning. Prior to that, he was on a regular diet. DISCHARGE ACTIVITY: As tolerated. DISCHARGE FOLLOWUP: Dr. Sheffield. Dr. Shilo Bush. DISCHARGE INSTRUCTIONS: Please continue antibiotics, Zosyn as prescribed by Dr. Bush. He will follow with your primary about this hospital stay. DISCHARGE DISPOSITION: Home. Dictated by MOIRA Wallace for Herson Polo MD cc: MOIRA Wallace MD I agree with most components of discharge summary mentioned above. A separate addendum has been dictated. >30 minutes were spent in discharging this patient. MTDChristine
[2019-04-25] MEDS ORDERED: ROBINUL ONE (10:44)
[2019-04-25] MEDS ORDERED: MARCAINE 0.25% PF/EPI 1:200,000 ONE ×2 (11:24→11:37)
[2019-04-25] MEDS ORDERED: NS 250 ML ONE (11:25)
--- NOTE | 2019-04-25 13:04 | Diag Imaging Result Doc PS360 ---
EXAM: CHEST-PORTABLE HISTORY: right IJ placement TECHNIQUE: Portable chest COMPARISON: 04/23/2019 FINDINGS: Tracheostomy tube is unchanged. No cardiomegaly. No pulmonary edema. No pneumonia. No pleural effusions identified. Interval placement of a right jugular line. Tip overlies the lower right atrium. No pneumothorax. IMPRESSION: No postprocedural pneumothorax. Electronically signed by Emerson Means 04/25/2019 1:02 PM
--- NOTE | 2019-04-25 13:34 | OPERATIVE NOTE ---
PROCEDURE DATE: 04/25/2019 PREOPERATIVE DIAGNOSES: 1. Cerebral palsy. 2. History of sepsis. PROCEDURE: Right IJ Groshong catheter for IV maintenance at home. DESCRIPTION OF PROCEDURE: The patient was brought to the operating room. After satisfactory IV and MAC anesthesia, his right chest and neck were prepped and draped in the appropriate manner. The existing tracheostomy was draped away from the area. With Doppler guidance, the IJ was identified and just lateral to the right sternal notch. Area was infiltrated with Marcaine and Xylocaine with epinephrine. A transverse incision was made over the split of the sternomastoid muscle, and the right IJ was accessed. A guidewire was introduced into the right atrial area of the heart. There appeared to be no pneumothorax. An area just above the nipple was subsequently infiltrated with Marcaine and Xylocaine all the way up to the incision in his neck. An incision was made at the base of this, and a subcutaneous tunneler was performed pulling the Groshong catheter beneath it. This was brought up, and threaded down through a 9-Chinese introducer to the superior vena cava right atrial junction. The upper incision underwent closure of 3-0 Vicryl on the subcutaneous, 4-0 on the skin. Exit site was anchored with 0 silk. Sterile dressing was applied. Steri-Strips, Telfa and OpSite's were applied to the upper incision. Split gauze was applied to the exit incision. The patient was subsequently awakened in the operating room, and transferred back to intensive care. ESTIMATED BLOOD LOSS: 5-10 mL. cc: Joseluis Shrestha MD
[2019-04-25 14:12] VITALS: BP 93/49
--- NOTE | 2019-04-25 14:18 | DISCHARGE SUMMARY ---
ADMISSION DATE: 04/19/2019 DISCHARGE DATE: ADDENDUM: To discharge summary dictated by the nurse practitioner. I agree with most components of discharge summary mentioned above. In brief, Mr. Ruiz is a 28-year-old man with past medical history of cerebral palsy and total dependence for activities of daily living and bed-bound status, came in with chief complaints of lethargy, increased sleep and decreased urine output with milky urine with stones and mucus from suprapubic catheter. He also had fever of 102 degrees Fahrenheit at home. He was admitted to ICU for his profound hypotension and sepsis. He was treated in ICU for Serratia sepsis, likely from PICC line that he had in his right arm for about 6 months for frequent UTIs and antibiotic use, Pseudomonas urinary tract infection associated with suprapubic catheter, Pseudomonas right lower lobe pneumonia. His antibiotic at the time of discharge was changed to Zosyn. The plan was to give him about 2 weeks of antibiotics from 1st day of negative blood culture on 04/23/2019. Infectious Diseases were consulted. At the time of discharge, Dr. Shrestha was consulted for getting a new PICC line which was inserted after the old PICC line was removed because of Serratia sepsis. His suprapubic catheter was also changed during hospitalization. VITAL SIGNS: Currently on my evaluation, his temperature is 98.2 degrees, pulse 68, respiratory rate 18, blood pressure 81/53, saturating 100% on room air. He has a trach collar. PHYSICAL EXAMINATION: General: He does not appear in any acute distress. He is bed-bound, nonverbal, keeps his eyes open. Lungs: His air entry is bilaterally equal. No wheeze, rhonchi, or crackles. Cardiovascular: His S1, S2 was normal. No murmur or gallop. Abdomen: Soft, nontender. Genitourinary: He has a suprapubic catheter in place which is draining appropriately. Extremities: He does not have any lower extremity edema. He has a tracheostomy with trach collar on it. DISCHARGE PLAN: Dr. Shrestha is currently working on consulting a PICC team and getting a PICC line. Dr. Bush is working on setting up home antibiotics. After that, the patient is be discharged. Plan of care was discussed with the patient's mother. All of her questions have been answered. cc: Herson Polo MD
== END 2019-04-25 15:00 | disposition home health service (06) | DRG 314 ==
LOC: ED 09:59 → SUATTDRO 10:00 → EDIPHOLD 10:00 → ICU 12:29 → UNDODISIN 04-21 15:41
PROVIDERS: ATTEND Internal Medicine
CPT/HCPCS: 71010; 71045; 76770; 77001; 80048; 80053; 81001; 82550; 82607; 82728; 82746; 82784; 82805; 83540; 83550; 83605; 83735; 84484; 85025; 85610; 85730; 87040; 87070; 87077; 87088; 87186; 87205; 93005; 94640; 94761; 96361; 96365; 99285; A9270; C1751; J0692; J0696; J2185; J2543; J3475; J7030; J7050; J7120; S0020

== ENCOUNTER 2019-08-21 08:13 | Inpatient (IN) ==
--- NOTE | 2019-08-21 13:09 | PROVIDER DOCUMENTATION ---
HPI-General Adult - General Chief Complaint: Fever Stated Complaint: FEVER Time Seen by Provider: 08/21/19 11:20 Source: family Allergies/Adverse Reactions: Patient Allergies Allergy/AdvReac Type Severity Reaction Status Date / Time vancomycin Allergy Severe severe Verified 06/15/19 09:27 decrease WBC/RBC latex Allergy Mild RASH Verified 06/15/19 09:27 Home Medications: Home Medication List Medication Instructions Recorded Confirmed Last Taken Type Baclofen 40 mg PO TID 12/15/12 08/21/19 08/21/19 History Clonazepam [Klonopin] 0.5 mg PO QHS 12/15/12 08/21/19 08/20/19 History Clonazepam [Klonopin] 0.25 mg PO QAM 08/28/14 08/21/19 08/21/19 History Fexofenadine [Jessie] 60 mg PO BID 05/25/17 08/21/19 08/21/19 History Gabapentin [Neurontin] 100 mg PO QAM 05/25/17 08/21/19 08/21/19 History Gabapentin [Neurontin] 300 mg PO QHS 05/25/17 08/21/19 08/20/19 History Montelukast Sodium [Singulair] 10 mg PO DAILY 05/25/17 08/21/19 08/21/19 History Docusate Sodium [Colace] 100 mg PO BID 09/30/17 08/21/19 08/21/19 History Lamotrigine [Lamictal] 100 mg PO QAM 11/22/17 08/21/19 08/21/19 History Lamotrigine [Lamictal] 150 mg PO QHS 11/22/17 08/21/19 08/20/19 History Levalbuterol HCl [Xopenex] 0.63 mg IH Q6H PRN PRN #1 vial.neb 02/15/18 06/02/18 Unknown Rx Warfarin [Coumadin] 1 mg PO QHS 04/19/19 08/21/19 08/20/19 History Tobramycin/Sodium Chloride 1 dose IV QHS 08/21/19 08/21/19 08/20/19 History [Tobramycin 80 mg/100 ml Ns] - History of Present Illness -Gen Adult Nature of Presenting Problems: 28 yr old M, hx of cerebral palsy, presents with his mother for concern of persistent fever. The mom states that when he returned from his day program on Wednesday afternoon, he began to have diarrhea, 4-5 episodes. Though that resolved, the pt shortly after developed low grade temps, eventually reaching a high of 103. The mother also notes that he appears little more subdued than his baseline. She reports that he has been eating and drinking without much change in appetite. She states that she believes he is not in any pain, as he typically will show her through body language if he is in anyway uncomfortable. Onset/Duration: reports: 3 days ago Associated Symptoms: reports: diarrhea Review of Systems - Adult - REVIEW OF SYSTEMS - ADULT ROS:: ROS per family Constitutional: reports: fever Respiratory: reports: cough Gastrointestinal: reports: diarrhea Genitourinary: reports: other (mother notes some sediment in his dahl bag) Neurological: reports: no symptoms reported Past History - Adult - PAST MEDICAL HISTORY-ADULT Review of Records: reports: Old Records Reviewed, Nursing Assessment Review Major Childhood Illnesses: reports: denies history Cardiovascular: reports: denies history Respiratory: reports: asthma Gastrointestinal: reports: denies history Obstetrical/Gynecological: reports: denies history Genitourinary: reports: kidney stones, chronic UTI's Musculoskeletal: reports: denies history Neurological: reports: other, Seizures/Epilepsy Endocrine/Immune: reports: denies history Other Conditions: reports: denies history - PRIOR SURGERIES/PROCEDURES Surgical/Procedure History: reports: indwelling device, other, back/neck - IMMUNIZATION STATUS Childhood Immunizations: See Nurse Assessment Flu Vaccine: See Nurse Assessment - FAMILY HISTORY Family History: reviewed, not pertinent Physical Exam-General - PHYSICAL EXAM-ADULT Initial Vital Signs Reviewed: Yes - CONSTITUTIONAL General Appearance: alert, no apparent distress, thin - EYES Eyes: PERRL/EOMI - HEAD, EARS, NOSE, MOUTH & THROAT HENMT: moist mucous membranes - RESPIRATORY Respiratory: rhonchi - CARDIOVASCULAR Cardiovascular: tachycardia - GASTROINTESTINAL (ABDOMEN) Abdominal Exam: normal bowel sounds, non tender, soft - GENITOURINARY Male Genitalia: other (suprapubic catheter in place, no erythema noted around the catheter) - SKIN Integumentary: warm - NEUROLOGIC Neurologic: other (at neurologic baseline, pt has hx of CP) Progress - PLAN OF CARE/RESULTS Progress/Plan/Lab Results: Vital Signs - 8 hr 08/21/19 08:16 Temperature 97.9 F Pulse Rate 104 H Respiratory Rate 20 Blood Pressure 116/78 O2 Sat by Pulse Oximetry 96 Orders Category Date Time Status CHEST-2 VIEWS [RAD] Stat Exams 08/21/19 11:21 Ordered BLOOD CULTURE [BLDCUL] Stat Lab 08/21/19 11:21 Uncollected CBC WITH DIFF [HEME] Stat Lab 08/21/19 11:21 Uncollected COMPREHENSIVE METABOLIC PANEL [CHEM] Stat Lab 08/21/19 11:21 Uncollected INFLUENZA SCREEN A/B Stat Lab 08/21/19 11:21 Uncollected LACTATE, PLASMA [CHEM] Stat Lab 08/21/19 11:21 Uncollected URINALYSIS W/POSS RFLX CULT [URINALYSIS] Stat Lab 08/21/19 11:21 Uncollected Result Diagrams: 08/21/19 13:06 08/21/19 13:06 - XRAY 1 XRAY Study: Chest Impression: See EMR Report XRAY Interpretation: no acute findings - CT/MRI 1 CT Study: Abdomen, Pelvis Impression: See EMR Report CT Results: Right lobe pneumonia - CONSULTS/PCP/HOSPITALIST Notification #1 *Consult/PCP/Hospitalist*: Amara Time Discussed: 15:30 Consult Disposition: Admit Departure - Departure Date of Disposition Decision: 08/21/19 Time of Disposition Decision: 15:42 DIAGNOSIS: Fever Disposition: ADMITTED INPATIENT 09 Certified Medical Emergency: Emergent Condition: Fair Referrals and Follow-Ups: Matthieu Sheffield MD [Primary Care Provider] - - Critical Care Note This patient required my direct & personal management of CC.: No Attestation - Physician/ FRANCIS Attestation The physician spent face to face time with patient:: Yes Advanced Practice Provider documentation review:: Supervising physician onsite and consulted in the evaluation and care of this patient. The physician did have a face to face encounter with the patient.
[2019-08-21 13:46] LABS: URINE SOURCE CLEAN CATCH
[2019-08-21 13:47] LABS: BASO# 0.03 X1000 (0.0-0.2); BASO% 0.3 % (0.0-0.8); EOS# 0.09 X1000 (0.0-0.7); EOS% 0.9 % (0.0-10.0); HEMATOCRIT 37.1 % (42.0-52.0); HEMOGLOBIN 12.3 g/dL (14.0-18.0); IMM GRAN# 0.02 X1000 (0.0-0.04); IMM GRAN% 0.2 % (0.0-0.5); LYMPH# 1.02 X1000 (1.2-3.4); LYMPH% 10.1 % (20.5-51.1); MCH 26.7 PG (27-31); MCHC 33.2 g/dL (33-37); MCV 80.5 FL (81-99); MONO# 0.73 X1000 (0.11-0.59); MONO% 7.2 % (1.7-9.3); MPV 8.8 FL (7.4-10.4); NEUT# 8.24 X1000 (1.4-6.5); NEUT% 81.3 % (42.2-75.2); PLT 234 X1000 (130-400); RBC 4.61 XMIL (4.7-6.1); RDW 15.6 % (11.5-14.5); WBC 10.13 X1000 (4.8-10.8)
[2019-08-21 13:51] LABS: BILIRUBIN URINE NEGATIVE (NEGATIVE); BLOOD URINE MODERATE (NEGATIVE); COLOR YELLOW; GLUCOSE URINE NEGATIVE (NEGATIVE); KETONE URINE NEGATIVE (NEGATIVE); LEUKOCYTES URINE LARGE (NEGATIVE); NITRITE URINE POSITIVE (NEGATIVE); PROTEIN URINE 70 mg/dL (NEGATIVE); SP GRAVITY URINE 1.026; TURBIDITY URINE HAZY (CLEAR); UR EPITHELIAL CELLS <10 /HPF (<10); URINE BACTERIA 3+ /HPF; URINE WBC TNTC /HPF (<10); UROBILINOGEN URINE NORMAL (NORMAL)
[2019-08-21 14:14] LABS: AGAP 12; ALBUMIN 3.8 g/dL (3.5-5.0); ALKALINE PHOSPHATASE 90 U/L (32-122); BUN 17 mg/dL (8-22); CHLORIDE 103 mmol/L (98-107); COSMO 280; CREATININE 0.9 mg/dL (0.7-1.2); ESTIMATED GFR > 60; GLUCOSE 90 mg/dL (70-104); GOT 17 U/L (10-34); GPT 16 U/L (10-44); POTASSIUM 3.7 mmol/L (3.5-5.1); SODIUM 140 mmol/L (136-145); TCO2 25 mmol/L (25-35); TOTAL BILIRUBIN 0.58 mg/dL (0.20-1.00); TOTAL PROTEIN 7.7 g/dL (6.3-8.3)
--- NOTE | 2019-08-21 14:36 | Diag Imaging Result Doc PS360 ---
EXAM: CHEST-2 VIEWS HISTORY: fever TECHNIQUE: Chest two views COMPARISON: 08/07/2019 FINDINGS: No change in the tracheostomy tube. The lungs are poorly expanded. No cardiomegaly. No infiltrates. No pulmonary edema. IMPRESSION: No pneumonia. Electronically signed by Emerson Means 08/21/2019 2:34 PM
--- NOTE | 2019-08-21 15:15 | Diag Imaging Result Doc PS360 ---
CT ABDOMEN/PELVIS W/O CONTRAST - 08/21/2019 INDICATION: Fever, source eval COMPARISON: 01/02/2018 FINDINGS: There is dense infiltrate throughout the right lower lobe and some slight infiltrate in the right middle lobe as well. There are stones in the gallbladder. There is severe diffuse constipation. There is a suprapubic catheter. No bowel obstruction or free air. Stable calcifications in each kidney suggesting renal stones. Stable right renal cyst. Stable severe scoliosis. IMPRESSION: 1. Dense right basilar infiltrate compatible with pneumonia. 2. Constipation. 3. Bilateral renal densities compatible with nonobstructing renal stones. This exam was performed using automated exposure control, adjustment of mA or kV according to patient size, and/or use of iterative reconstruction technique Electronically signed by Vladimir Frias 08/21/2019 3:13 PM
[2019-08-21] MEDS ORDERED: ROCEPHIN 1 GM in NS 50 ML IV ONE (15:35)
[2019-08-21] MEDS ORDERED: ZITHROMAX 500 MG/NS 500 MG/250 ML IVPB IV ONE (15:40)
[2019-08-21] MEDS ORDERED: XOPENEX NEB INH PRN (16:27)
[2019-08-21] MEDS ORDERED: NS NEB INH SCH (16:30)
[2019-08-21] MEDS ORDERED: CLINDAMYCIN 600 MG/D5W 600 MG/50 ML IVPB IV SCH (18:16)
[2019-08-21] MEDS ORDERED: ZOSYN 3.375 GM in NS 50 ML IV SCH (18:16)
--- NOTE | 2019-08-21 19:21 | HISTORY AND PHYSICAL ---
PRIMARY CARE PROVIDER: Matthieu Sheffield MD CHIEF COMPLAINT: Fever. HISTORY OF PRESENT ILLNESS: Mr. Ruiz is a 28-year-old gentleman who carries a past medical history of cerebral palsy, seizure disorder, frequent UTIs with a suprapubic catheter, bed-bound state. He does have a tracheostomy no longer requiring trach collar or oxygen support. He is just on room air, status post a right IJ Groshong catheter. Mother reports since Wednesday evening he has been running a low-grade temperature of 99 degrees. Last night he spiked up to 103. He also had diarrhea on Wednesday that was resolved by Wednesday. His last seizure was over a week ago at school. He is currently on a regular diet that is chopped well. Workup in the ED revealed a urinary tract infection and a right lower lobe pneumonia. ER had given him Rocephin and azithromycin; however, given all his past micro findings, we will do Zosyn and clindamycin and consult Dr. Bush in the a.m. for antibiotic assistance, and we will admit him to the regular floor for further workup and evaluation. PAST MEDICAL HISTORY: 1. Cerebral palsy. 2. Frequent urinary tract infections with suprapubic catheter. 3. Seizure disorder. 4. Gastroesophageal reflux disease. 5. Legally blind. PAST SURGICAL HISTORY: 1. Scoliosis with nancy insertion and subsequent nancy removal secondary to infection. 2. Suprapubic catheter. 3. Tracheostomy. 4. Lithotripsy. 5. Fundoplication. 6. Right-sided Port-A-Cath placement with removal. 7. Right upper PICC arm with removal. 8. Groshong placement. SOCIAL HISTORY: Patient lives with his parents. No alcohol, tobacco, or illicit drug use. FAMILY HISTORY: Nothing significant. VITAL SIGNS: Initial temperature was 97.9 degrees and at 1600, he is 100.1, heart rate of 115, respirations of 19, blood pressure 132/62, O2 is 96% on room air. REVIEW OF SYSTEMS: Unable to obtain secondary to patient's condition. PHYSICAL EXAMINATION: GENERAL: Mr. Ruiz is a 28-year-old gentleman who is lying in the bed in the ER. He is not in any acute distress. He is being fed by a caregiver at the bedside. He does appear chronically ill again, but he is awake. He is nonverbal, does not follow any commands. HEENT: Atraumatic, normocephalic. Mucous membranes are dry. NECK: Supple. Trachea midline. CARDIOVASCULAR: S1, S2 appreciated. No murmurs, gallops or rubs noted. RESPIRATORY: Lung sounds decreased on the right with some crackles. No rales, rhonchi, or wheezes located anywhere else. ABDOMEN: Appears to be soft. Positive bowel sounds 4 quads with suprapubic catheter in place. SKIN: He does have a Groshong to the right upper chest. EXTREMITIES: Contracted. No signs of cyanosis. NEUROLOGIC: Really unable to assess. DIAGNOSTIC DATA: Abdomen and pelvis CT: Dense right basilar infiltrate compatible with pneumonia, constipation, bilateral renal densities compatible with nonobstructing renal stones. Chest x-ray showed no pneumonia, no pulmonary edema. LABORATORY DATA: White count 10, hemoglobin and hematocrit 12 and 37, platelet count is 234,000. Sodium 140, potassium 3.7, BUN 17, creatinine 0.9, blood glucose is 90. Urinalysis shows 70 protein, moderate blood, positive for nitrates, large leukocytes, too numerous to count WBCs, 10 to 20 RBCs, 3+ bacteria. ASSESSMENT AND PLAN: 1. Urinary tract infection. The patient does have a suprapubic catheter in place. We will continue with broad-spectrum antibiotics given his previous micro and resistance. Consult Dr. Shlio Bush for antibiotic assistance. 2. Right lower lobe pneumonia. We will continue with broad-spectrum antibiotics. The patient had a negative lactate. 3. Fever. We will continue with IV Tylenol. 4. Tracheostomy. Patient on room air. 5. Cerebral palsy. Aware. Will need to turn q.2. 6. Seizures. We will continue home medications when verified. 7. Gastroesophageal reflux disease. Continue home medications when verified. 8. Legally blind. Aware. 9. Further recommendations to follow physician evaluation, laboratory and diagnostic data. Dictated by MOIRA Phelan for Norris Mora MD cc: MD Shilo Souza MD agree with the above. the following is my own face to face assessment. patient with severe cerebral palsy, contractures off all extremities on exam, permanent trach, and recurrent infection. again with fevers. initial eval suggesting pneumonia and UTI. has previously had various different strains of pseudomonas and has had MRSA bacteremia at least twice. reportedly allergic to vancomycin. will place on zosyn and clinda pending ID recs. MTDD
[2019-08-21] MEDS: CLINDAMYCIN 600 MG/D5W 600 MG/50 ML IVPB IV SCH (19:37)
[2019-08-21] MEDS: OFIRMEV 1000 MG/ISOTONIC SOLN 1,000 MG/100 ML BOTTLE IV PRN (19:41)
[2019-08-21] MEDS: XOPENEX NEB INH SCH ×2 (19:50→22:55)
[2019-08-21] MEDS ORDERED: TORADOL IV ONE (21:27)
[2019-08-21] MEDS: ZOSYN 3.375 GM in NS 50 ML IV SCH (21:38)
[2019-08-22 02:42] LABS: BASO# 0.02 X1000 (0.0-0.2); BASO% 0.2 % (0.0-0.8); EOS# 0.15 X1000 (0.0-0.7); EOS% 1.8 % (0.0-10.0); HEMATOCRIT 33.5 % (42.0-52.0); HEMOGLOBIN 10.8 g/dL (14.0-18.0); IMM GRAN# 0.02 X1000 (0.0-0.04); IMM GRAN% 0.2 % (0.0-0.5); LYMPH# 1.27 X1000 (1.2-3.4); LYMPH% 15.4 % (20.5-51.1); MCH 26.3 PG (27-31); MCHC 32.2 g/dL (33-37); MCV 81.7 FL (81-99); MONO# 0.84 X1000 (0.11-0.59); MONO% 10.2 % (1.7-9.3); NEUT# 5.94 X1000 (1.4-6.5); NEUT% 72.2 % (42.2-75.2); PLT 222 X1000 (130-400); RDW 15.5 % (11.5-14.5); WBC 8.24 X1000 (4.8-10.8)
[2019-08-22] MEDS: ZOSYN 3.375 GM in NS 50 ML IV SCH ×4 (02:49→20:29)
[2019-08-22 03:00] LABS: INR 1.2; PROTIME 15.4 Seconds (11.0-16.0); PTT 40.2 Seconds (22.3-41.8)
[2019-08-22 03:08] LABS: AGAP 13; ALB/GLOB RATIO 1.2; ALBUMIN 3.6 g/dL (3.5-5.0); ALKALINE PHOSPHATASE 77 U/L (32-122); BUN 19 mg/dL (8-22); CHLORIDE 102 mmol/L (98-107); CK PROFILE 26 U/L (24-204); COSMO 282; ESTIMATED GFR > 60; GLUCOSE 100 mg/dL (70-104); GOT 18 U/L (10-34); GPT 16 U/L (10-44); POTASSIUM 3.6 mmol/L (3.5-5.1); SODIUM 140 mmol/L (136-145); TCO2 25 mmol/L (25-35); TOTAL BILIRUBIN 0.45 mg/dL (0.20-1.00); TOTAL PROTEIN 6.7 g/dL (6.3-8.3)
[2019-08-22] MEDS: XOPENEX NEB INH SCH ×6 (03:23→23:24)
[2019-08-22] MEDS: CLINDAMYCIN 600 MG/D5W 600 MG/50 ML IVPB IV SCH (04:58)
[2019-08-22 07:19] LABS: BASO# 0.01 X1000 (0.0-0.2); BASO% 0.1 % (0.0-0.8); EOS# 0.12 X1000 (0.0-0.7); EOS% 1.5 % (0.0-10.0); HEMATOCRIT 34.1 % (42.0-52.0); HEMOGLOBIN 10.9 g/dL (14.0-18.0); LYMPH# 0.73 X1000 (1.2-3.4); LYMPH% 9.3 % (20.5-51.1); MCH 26.1 PG (27-31); MCV 81.6 FL (81-99); MONO# 0.72 X1000 (0.11-0.59); MONO% 9.2 % (1.7-9.3); MPV 9.2 FL (7.4-10.4); NEUT# 6.28 X1000 (1.4-6.5); NEUT% 79.9 % (42.2-75.2); PLT 197 X1000 (130-400); RBC 4.18 XMIL (4.7-6.1); RDW 15.6 % (11.5-14.5); WBC 7.86 X1000 (4.8-10.8)
[2019-08-22 07:20] LABS: INR 1.24; PROTIME 15.8 Seconds (11.0-16.0)
[2019-08-22 07:37] LABS: AGAP 12; ALB/GLOB RATIO 0.9; ALBUMIN 3.4 g/dL (3.5-5.0); ALKALINE PHOSPHATASE 82 U/L (32-122); BUN 20 mg/dL (8-22); CALCIUM 8.2 mg/dL (8.8-10.2); CHLORIDE 104 mmol/L (98-107); COSMO 284; ESTIMATED GFR > 60; GLUCOSE 95 mg/dL (70-104); GOT 17 U/L (10-34); GPT 15 U/L (10-44); POTASSIUM 3.6 mmol/L (3.5-5.1); SODIUM 141 mmol/L (136-145); TCO2 25 mmol/L (25-35); TOTAL BILIRUBIN 0.52 mg/dL (0.20-1.00)
[2019-08-22] MEDS: D5 1/2 NS + KCL 20 MEQ 1,000 ML IV SCH ×2 (08:53→17:36)
--- NOTE | 2019-08-22 10:14 | INFECTIOUS DISEASE CONSULT REP ---
DATE: 08/22/2019 CONCLUSION: The patient has a urinary tract infection, pneumonia, and bacteremia. The bacteremia could have arisen from the patient's pneumonia or urinary tract infection, or from the patient's right-sided Groshong catheter. In the past, the patient has grown Pseudomonas from cultures. RECOMMENDATIONS: I agree with starting the patient on Zosyn pending culture results. I have discontinued clindamycin. DISCUSSION: The patient had a high fever, and was brought into the hospital by his mother. He has, on CT scan, a right basilar infiltrate compatible with pneumonia. The CT also shows constipation and renal calculi. The patient's blood cultures are growing a gram-negative nancy. Urine culture is negative. The urinalysis showed white cells and bacteria. Liver function studies are normal. Creatinine is 1. GFR is 60. The patient's chest x-ray shows poorly-expanded lungs. It says no infiltrates, but on CT scan, as mentioned above, infiltrates were seen in the right basilar area. REVIEW OF SYSTEMS: Unobtainable from the patient. The patient is unable to walk. He has an electric chair that is used for him. He does eat. He has a suprapubic catheter, and he has a long-term IV because he gets IV fluids every night, and also he frequently comes to the hospital and needs IV access because of infection. PAST MEDICAL HISTORY: Positive for cerebral palsy, seizure disorder, gastroesophageal reflux disease, and the patient is legally blind. INFECTIOUS DISEASE HISTORY: Positive for urinary tract infection, pneumonia, and IV catheter infections. PAST SURGICAL HISTORY: The patient has scoliosis and had a nancy inserted, and the nancy had to be removed secondary to infection. He has a suprapubic catheter. He has had lithotripsy and fundoplication. He has a right-sided Port-A-Cath placement with removal, a right arm PICC placed with removal, and most recently he has had a Groshong catheter admitted. SOCIAL HISTORY: The patient lives with his mother and father. He cannot walk, and he is legally blind. He can take food by mouth, but he also gets IV fluids. He does not drink alcoholic beverages or smoke cigarettes or use illicit drugs. FAMILY HISTORY: Positive for hypertension. ALLERGIES: His chart lists allergies to vancomycin and latex. HOME MEDICATIONS: Include baclofen, clonazepam, Colace, Jessie, Neurontin, Lamictal, Xopenex, Singulair, intravenous tobramycin every night, and Coumadin. PHYSICAL EXAMINATION: Vital Signs: Temperature is 96.9 degrees, pulse 82, respirations 24, blood pressure 94/58. The patient weighs 98 pounds. General: This is a chronically ill and malnourished-appearing, young male. He is in no acute distress. HEENT: No drainage noted from the nose or the ears. I did not see any white patches on his tongue. Neck: The patient has a permanent tracheostomy in place. Lungs: Clear to auscultation. Cardiovascular: Heart rate is regular. Abdomen: Soft. It did not appear to be tender. He does have a suprapubic catheter in place. Thorax: The patient has a tunneled IV catheter on the right side. Neurologic: The patient's eyes are open. He did not move his arms or legs. He does not have a tremor. Integument: No rash or decubitus ulcers. Thank you for the consult. cc: Shilo Bush MD
--- NOTE | 2019-08-22 11:16 | PROGRESS NOTE ---
DATE: 08/22/2019 SUBJECTIVE: The patient is lying comfortably in bed. I have placed this patient back on his home medications. His mother and grandmother are at the bedside. It looks like he is better. He has pneumonia, urinary tract infection, and he is bacteremic with a gram-negative nancy. He is eating well. Will continue with the same management. OBJECTIVE: Vital Signs: Temperature 98 degrees, pulse 105, respiratory rate 14, blood pressure 110/79, oxygen saturation 96 on a trach collar. HEENT: Head normocephalic, atraumatic. Neck: Supple. Trachea is midline with a tracheostomy in place. Cardiovascular: RRR. Chest: Decreased sounds at the bases with some crackles and rhonchi bilaterally. No wheezing. Abdomen: Soft. Suprapubic catheter in place. I do not see any secretion. Extremities: Contracted. No signs of cyanosis. Neurological: This patient has a history of cerebral palsy. LABORATORY DATA: WBC 8.2, hemoglobin 10.8, hematocrit 33.5, platelets 222,000. Sodium 140, potassium 3.6, chloride 102, bicarbonate 25, BUN 19, creatinine 1, glucose 100, calcium 8. AST 18, ALT 16, alkaline phosphatase 77, albumin 3.6. ASSESSMENT AND PLAN: 1. Bacteremia due to gram-negative nancy. He does have pneumonia and urinary tract infection. This could be the source of infection. Will continue with broad spectrum antibiotics. Infectious Disease Department on board. 2. Right lower lobe pneumonia. Continue with antibiotics per Infectious Disease Department. 3. Urinary tract infection. This patient has a suprapubic catheter that has been replaced 2 days ago. Will monitor for now. 4. History of cerebral palsy with tracheostomy and suprapubic catheter. Aware. 5. Seizures. Continue with home medications. 6. Gastroesophageal reflux disease. Continue with home medications. 7. This patient is legally blind. cc: Carlos Aviles MD
[2019-08-22] MEDS: LIORESAL PO SCH ×2 (12:59→17:37)
[2019-08-22] MEDS ORDERED: BACLOFEN 40 MG PO SCH (13:00)
[2019-08-22] MEDS: COUMADIN PO SCH (20:42)
[2019-08-22] MEDS: COLACE PO SCH (20:42)
[2019-08-22] MEDS: NEURONTIN PO SCH (20:42)
[2019-08-22] MEDS: KLONOPIN PO SCH (20:43)
[2019-08-22] MEDS: LAMICTAL PO SCH (20:45)
[2019-08-23] MEDS: D5 1/2 NS + KCL 20 MEQ 1,000 ML IV SCH ×2 (02:16→06:34)
[2019-08-23] MEDS: ALLEGRA PO SCH ×3 (02:41→20:56)
[2019-08-23] MEDS: ZOSYN 3.375 GM in NS 50 ML IV SCH ×4 (02:46→21:01)
[2019-08-23] MEDS: XOPENEX NEB INH SCH ×5 (03:12→20:05)
[2019-08-23] MEDS: LIORESAL PO SCH ×4 (06:35→20:59)
[2019-08-23 08:11] LABS: BASO# 0.01 X1000 (0.0-0.2); BASO% 0.2 % (0.0-0.8); EOS# 0.17 X1000 (0.0-0.7); EOS% 3.2 % (0.0-10.0); HEMATOCRIT 30.7 % (42.0-52.0); HEMOGLOBIN 9.7 g/dL (14.0-18.0); LYMPH# 0.67 X1000 (1.2-3.4); LYMPH% 12.5 % (20.5-51.1); MCH 25.9 PG (27-31); MCHC 31.6 g/dL (33-37); MCV 81.9 FL (81-99); MONO# 0.38 X1000 (0.11-0.59); MONO% 7.1 % (1.7-9.3); MPV 9.2 FL (7.4-10.4); NEUT# 4.12 X1000 (1.4-6.5); PLT 184 X1000 (130-400); RBC 3.75 XMIL (4.7-6.1); RDW 15.8 % (11.5-14.5); WBC 5.35 X1000 (4.8-10.8)
[2019-08-23 08:30] LABS: AGAP 8; BUN 10 mg/dL (8-22); CALCIUM 8.5 mg/dL (8.8-10.2); CHLORIDE 108 mmol/L (98-107); COSMO 280; CREATININE 0.8 mg/dL (0.7-1.2); ESTIMATED GFR > 60; GLUCOSE 130 mg/dL (70-104); MAGNESIUM 1.7 mg/dL (1.5-2.7); POTASSIUM 3.7 mmol/L (3.5-5.1); SODIUM 140 mmol/L (136-145); TCO2 24 mmol/L (25-35)
[2019-08-23] MEDS: SINGULAIR PO SCH (08:38)
[2019-08-23] MEDS: KLONOPIN PO SCH ×2 (08:38→21:04)
[2019-08-23] MEDS: LAMICTAL PO SCH ×2 (08:40→20:56)
[2019-08-23] MEDS: COLACE PO SCH ×2 (08:40→20:56)
[2019-08-23] MEDS ORDERED: D5 1/2 NS 1,000 ML IV SCH (11:00)
[2019-08-23] MEDS: D5 NS 1,000 ML IV SCH (11:20)
--- NOTE | 2019-08-23 12:54 | PROGRESS NOTE ---
DATE: 08/23/2019 SUBJECTIVE: This patient is lying comfortably in bed. Apparently, he had a good night, but he has been sleepy during the day. He had a sputum culture, blood culture and urine culture that showed gram-negative nancy. Actually, the urine showed Pseudomonas. He has been placed on Zosyn which I will continue. He is sensitive. OBJECTIVE: Vital Signs: Temperature 98.1 degrees, pulse 116, respiratory rate 18, blood pressure 118/72, and oxygen saturation 100% on a trach collar. HEENT: Head normocephalic. No trauma. PERRLA. Neck: Supple. The trachea is midline with a tracheostomy in place. Cardiovascular: Regular rhythm and rate. Tachycardic. Chest: Decreased breath sounds at the bases with some crackles and rhonchi bilaterally. No wheezing. Abdomen: Soft. Suprapubic catheter in place. I do not see any secretion. Extremities: Contracted. No signs of cyanosis. Neurological: This patient is sleepy. He has a history of cerebral palsy. LABORATORY: WBC 5.3, hemoglobin 9.7, hematocrit 30.7, and platelets 184,000. Sodium 140, potassium 3.7, chloride 108, bicarbonate 24, BUN 10, creatinine 0.8, glucose 130, calcium 8.5, and magnesium 1.7. ASSESSMENT AND PLAN: 1. Bacteremia due to gram-negative rods. We have a positive urine culture that showed Pseudomonas sensitive to Zosyn. We will continue with the same management. Infectious Disease Department on board. 2. Right lower lobe pneumonia. Continue with antibiotics. Sputum culture showed gram-negative rods. 3. Urinary tract infection due to Pseudomonas. Continue with same management. This patient has a suprapubic catheter that has been replaced 2 days ago. 4. History of cerebral palsy with tracheostomy and suprapubic catheter, aware. 5. Seizures, continue home medication. 6. Gastroesophageal reflux disease. Continue home medication as well. 7. This patient is basically legally blind. Aware. 8. History of cerebral palsy with tracheostomy and suprapubic catheter in place. cc: Carlos Aviles MD
[2019-08-23] MEDS: NEURONTIN PO SCH ×2 (13:58→20:56)
[2019-08-23] MEDS ORDERED: FLEET ENEMA PR ONE (14:05)
[2019-08-23] MEDS: COUMADIN PO SCH (20:55)
--- NOTE | 2019-08-23 23:31 | INFECTIOUS DISEASE PROGRESS NO ---
DATE: 08/23/2019 PRESENT ILLNESS: Mr. Ruiz has a Pseudomonas urinary tract infection as well as a gram-negative nancy pneumonia and bacteremia. MEDICATIONS: He is receiving Zosyn 3.375 g IV every 6 hours. PHYSICAL EXAMINATION: Vital Signs: Temperature is 98.1 degrees, pulse rate 116, respiratory rate 18, blood pressure 118/72, O2 saturation is 100% on room air. General: This is a chronically-ill young man. He is lying in the bed on his left lateral side. Currently, in no acute distress. HEENT: Oral mucous membranes are pink and moist. Conjunctivae are pale. Neck: Has a decrease in suppleness. Trachea is midline. There is a tracheostomy in place, that site is without edema, erythema, or drainage. Cardiovascular: Heart rate is regular and fast. S1, S2 noted. Respiratory: Lung sounds have some rales in the upper lobes. Diminished in the mid and bases. Abdomen: Soft, flat, and nontender. There is a suprapubic catheter site which has a clean, dry dressing in place. Neurologic: The patient is nonverbal and unable to follow commands. He will move his extremities, open his eyes and smile. LABORATORY AND X-RAY: Today his white count is 5.35, hemoglobin 9.7, platelet count 184,000. Creatinine is 0.8. Estimated GFR is greater than 60. Her urine has grown a Pseudomonas aeruginosa, which is multidrug resistant. His sputum and blood cultures all are growing gram- negative rods. No imaging reports today. ASSESSMENT AND PLAN: The patient has a Pseudomonas urinary tract infection which is multidrug resistant. It is, however, susceptible to Zosyn, which we will continue. There is also a gram- negative nancy bacteremia and sputum culture which is growing a gram-negative nancy. I have called the micro lab and asked them to send susceptibilities on the blood cultures for Azactam and meropenem. For now, we will continue the Zosyn as ordered, awaiting the final cultures. These plans have been discussed with and recommended by Dr. Bush. COMORBIDITIES: For the patient include scoliosis, suprapubic catheter, cerebral palsy, gastroesophageal reflux disease, seizure disorder, and chronic UTIs with multidrug resistance. Dictated by MOIRA Del Cid for Shilo Bush MD cc: MD EMELINA Melendez
[2019-08-24] MEDS: XOPENEX NEB INH SCH ×7 (00:09→22:43)
[2019-08-24] MEDS: D5 NS 1,000 ML IV SCH ×3 (01:34→17:39)
[2019-08-24] MEDS: ZOSYN 3.375 GM in NS 50 ML IV SCH ×4 (02:41→20:43)
[2019-08-24] MEDS: LIORESAL PO SCH ×3 (06:35→18:40)
[2019-08-24 08:34] LABS: BASO# 0.03 X1000 (0.0-0.2); BASO% 0.5 % (0.0-0.8); EOS# 0.23 X1000 (0.0-0.7); EOS% 4.2 % (0.0-10.0); HEMATOCRIT 32.2 % (42.0-52.0); HEMOGLOBIN 10.1 g/dL (14.0-18.0); LYMPH# 1.19 X1000 (1.2-3.4); LYMPH% 21.7 % (20.5-51.1); MCHC 31.4 g/dL (33-37); MONO# 0.38 X1000 (0.11-0.59); MONO% 6.9 % (1.7-9.3); MPV 9.2 FL (7.4-10.4); NEUT# 3.66 X1000 (1.4-6.5); NEUT% 66.7 % (42.2-75.2); PLT 224 X1000 (130-400); RBC 3.88 XMIL (4.7-6.1); RDW 16.1 % (11.5-14.5); WBC 5.49 X1000 (4.8-10.8)
[2019-08-24 08:50] LABS: AGAP 12; BUN 5 mg/dL (8-22); CALCIUM 8.7 mg/dL (8.8-10.2); CHLORIDE 106 mmol/L (98-107); COSMO 280; CREATININE 0.8 mg/dL (0.7-1.2); ESTIMATED GFR > 60; GLUCOSE 119 mg/dL (70-104); POTASSIUM 3.8 mmol/L (3.5-5.1); SODIUM 141 mmol/L (136-145); TCO2 23 mmol/L (25-35)
[2019-08-24] MEDS: COLACE PO SCH ×2 (08:53→20:43)
[2019-08-24] MEDS: SINGULAIR PO SCH (08:53)
[2019-08-24] MEDS: KLONOPIN PO SCH ×2 (08:53→20:43)
[2019-08-24] MEDS: NEURONTIN PO SCH ×2 (08:53→20:43)
[2019-08-24] MEDS: LAMICTAL PO SCH ×2 (08:53→20:43)
[2019-08-24] MEDS: ALLEGRA PO SCH ×2 (08:54→20:43)
[2019-08-24] MEDS ORDERED: FLEET ENEMA PR ONE (09:14)
--- NOTE | 2019-08-24 12:51 | PROGRESS NOTE ---
DATE: 08/24/2019 SUBJECTIVE: The patient is lying comfortably in bed. He seems to be more awake today, and he has been tolerating p.o. We have a positive blood culture that showed serratia marcescens, and urine culture that showed Pseudomonas, both sensitive to Zosyn. His blood pressure has been mostly in the 100s. Will continue with IV fluids. Will continue with the same management. OBJECTIVE: Vital Signs: Temperature 97.7 degrees, pulse 84, respiratory rate 18, blood pressure 104/61, oxygen saturation 100% on a trach collar. HEENT: Head normocephalic. No trauma. PERRLA. Neck: Supple. No JVD. He has a midline tracheostomy in place. Cardiovascular: RRR. Chest: Decreased breath sounds with some crackles and coarse breath sounds, mostly at the bases. Abdomen: Soft. Suprapubic catheter in place. I do not see any secretion. Extremities: They are contracted. No signs of cyanosis. Neurological: This patient is more awake today, but he has a history of cerebral palsy. He is not following commands. LABORATORY DATA: WBC 5.4, hemoglobin 10.1, hematocrit 32.2, platelets 224,000. Sodium 141, potassium 3.8, chloride 106, bicarbonate 23, BUN 5, creatinine 0.8, glucose 119, calcium 8.7. ASSESSMENT AND PLAN: 1. Serratia marcescens bacteremia. I will continue with the same management for now. It is sensitive to Zosyn. Continue with intravenous fluids as well. Infectious Disease Department on board. 2. Right lower lobe pneumonia with a positive culture that showed gram-negative rods. Continue with Zosyn for now. 3. Urinary tract infection due to Pseudomonas. Continue with the same management. It looks like this is multidrug resistant, but is sensitive to Zosyn. Will monitor. 4. History of cerebral palsy with tracheostomy and suprapubic catheter. The suprapubic catheter has been replaced last Wednesday. 5. Seizures. Continue home medication. 6. Gastroesophageal reflux disease. Continue with home medications as well. 7. This patient is basically legally blind. 8. History of cerebral palsy with colostomy and suprapubic catheter in place. cc: Carlos Aviles MD
[2019-08-24] MEDS: COUMADIN PO SCH (20:43)
[2019-08-24] MEDS: OFIRMEV 1000 MG/ISOTONIC SOLN 1,000 MG/100 ML BOTTLE IV PRN (21:17)
[2019-08-25] MEDS: XOPENEX NEB INH SCH ×3 (03:27→10:51)
[2019-08-25] MEDS: ZOSYN 3.375 GM in NS 50 ML IV SCH ×2 (04:55→11:05)
[2019-08-25] MEDS: D5 NS 1,000 ML IV SCH (05:00)
[2019-08-25 07:25] LABS: BASO# 0.02 X1000 (0.0-0.2); BASO% 0.4 % (0.0-0.8); EOS# 0.18 X1000 (0.0-0.7); EOS% 3.8 % (0.0-10.0); HEMATOCRIT 30.2 % (42.0-52.0); HEMOGLOBIN 9.5 g/dL (14.0-18.0); IMM GRAN# 0.02 X1000 (0.0-0.04); IMM GRAN% 0.4 % (0.0-0.5); LYMPH# 1.14 X1000 (1.2-3.4); LYMPH% 24.1 % (20.5-51.1); MCH 26.3 PG (27-31); MCHC 31.5 g/dL (33-37); MCV 83.7 FL (81-99); MONO# 0.31 X1000 (0.11-0.59); MONO% 6.5 % (1.7-9.3); NEUT# 3.07 X1000 (1.4-6.5); NEUT% 64.8 % (42.2-75.2); PLT 223 X1000 (130-400); RBC 3.61 XMIL (4.7-6.1); WBC 4.74 X1000 (4.8-10.8)
[2019-08-25 08:03] LABS: AGAP 10; BUN 6 mg/dL (8-22); CALCIUM 8.5 mg/dL (8.8-10.2); CHLORIDE 106 mmol/L (98-107); COSMO 279; CREATININE 0.8 mg/dL (0.7-1.2); ESTIMATED GFR > 60; GLUCOSE 108 mg/dL (70-104); POTASSIUM 3.5 mmol/L (3.5-5.1); SODIUM 141 mmol/L (136-145); TCO2 25 mmol/L (25-35)
[2019-08-25] MEDS: SINGULAIR PO SCH (08:49)
[2019-08-25] MEDS: KLONOPIN PO SCH (08:49)
[2019-08-25] MEDS: NEURONTIN PO SCH (08:50)
[2019-08-25] MEDS: LAMICTAL PO SCH (08:50)
[2019-08-25] MEDS: LIORESAL PO SCH (08:50)
[2019-08-25] MEDS: ALLEGRA PO SCH (08:50)
[2019-08-25] MEDS: COLACE PO SCH (08:50)
[2019-08-25] MEDS: OFIRMEV 1000 MG/ISOTONIC SOLN 1,000 MG/100 ML BOTTLE IV PRN (09:48)
[2019-08-25 11:50] VITALS: BP 100/60
--- NOTE | 2019-08-25 12:22 | PROGRESS NOTE ---
DATE: 08/25/2019 SUBJECTIVE: Patient is lying comfortably in bed. He is tolerating p.o. As per the family, he is still a little bit somnolent/lethargic. He has a blood culture and sputum culture that showed Serratia marcescens, and urine culture shows Pseudomonas; all of then are susceptible to Zosyn which I will continue. I will repeat the blood culture today and I will check this back this Wednesday. If this is negative, probably he can be discharged either Wednesday or Wednesday depending on how he does. OBJECTIVE: Vital Signs: Temperature 97.3 degrees, pulse 82, respiratory rate 18, blood pressure 96/61, oxygen saturation 98 on a trach collar. HEENT: Head normocephalic, no trauma. PERRLA. Neck: Supple. No JVD. No masses. Central trachea. There is a tracheostomy in place. Cardiovascular: RRR. Chest: Decreased breath sounds with some crackles and coarse breath sounds at the bases. Abdomen: Soft. Suprapubic catheter in place. I do not see any secretion. Extremities: They are contracted. No signs of cyanosis. Neurological examination: The patient is resting in bed. He seems to be more awake compared with admission, but he has a history of cerebral palsy. He is not following commands. LABORATORY: WBC 4.7, hemoglobin 9.5, hematocrit 30.2, platelet 223. Sodium 141, potassium 3.5, chloride 106, bicarbonate 26. BUN 6, creatinine 0.8, glucose 108, calcium 8.5. ASSESSMENT AND PLAN: 1. Serratia marcescens bacteremia/pneumonia. He does have a right-sided lobe pneumonia and the culture grew Serratia marcescens, which is the same one that we found in blood. We will continue with intravenous antibiotics per Infectious Disease Department. It looks like he is sensitive to Zosyn. 2. Right lower lobe pneumonia with positive culture that showed Serratia marcescens. Continue with the same management as above. I will repeat the blood cultures. 3. Urinary tract infection due to Pseudomonas susceptible to Zosyn. 4. History of cerebral palsy with tracheostomy and suprapubic catheter. Also, he has an intravenous line/port in place. Hopefully this has not been infected. I will repeat the blood culture. I will discuss the case with Infectious Disease Department. 5. Seizure disorder. Continue home medication. 6. Gastroesophageal reflux disease. Continue with home medications as well. 7. This patient is legally blind. 8. History of cerebral palsy with tracheostomy and suprapubic catheter in place. cc: Carlos Aviles MD
--- NOTE | 2019-08-25 16:13 | INFECTIOUS DISEASE PROGRESS NO ---
DATE: 08/25/2019 PRESENT ILLNESS: The patient has a Pseudomonas urinary tract infection, a Serratia pneumonia and bacteremia. MEDICATIONS: The patient is receiving Rocephin. PHYSICAL EXAMINATION: Vital Signs: Temperature is 97.3 degrees, pulse 79, respirations 18, blood pressure 110/60. General: This is an ill-appearing young man. He is in no acute distress, however. Head, Eyes, Ears, Nose, and Throat: No drainage noted from the nose or ears. Neck: The patient does have a tracheostomy in place. Lungs: Clear to auscultation. Cardiovascular: Regular heart rate. Abdomen: Soft and nontender. The patient does have a suprapubic catheter in. The site is not erythematous or purulent. Neurologic: The patient is awake. He can move his extremities. He opens his eyes. He can smile. LABORATORY AND X-RAY: Blood and sputum cultures grew Serratia. The urine culture grew Pseudomonas. The repeat blood cultures are pending. The patient's CBC shows a white count of 4740, hemoglobin 9.5, and platelet count 223,000. Creatinine 0.8, GFR is greater than 60. On CT scan, the patient was noted to have a right lung pneumonia. ASSESSMENT AND PLAN: I discussed with the patient's mother various scenarios. Number 1 would be that the patient had a primary pneumonia and that that got into his blood and caused the bacteremia. Another possibility would be that the patient has an infection from his Groshong catheter that he has on the right side of the chest and then that became bacteremic and went to the lungs to cause pneumonia. The patient frequently does get urinary tract infections because he has a suprapubic tube in place. After discussing with Dr. Wells and the mother, the following plan is going to happen: The patient will go home today on Zosyn 4.5 grams IV every 8 hours for 14 days. If the patient's repeat blood cultures, which were drawn today, are positive in 48 hours from now, the patient will have to come back to the hospital and have his Groshong catheter removed and then repeat the patient's antibiotic therapy for Serratia. COMORBIDITIES: The patient has scoliosis, a suprapubic catheter, cerebral palsy, gastroesophageal reflux disease, seizure disorder, chronic and recurrent UTIs with multidrug resistance. cc: Shilo Bush MD
--- NOTE | 2019-08-26 12:48 | DISCHARGE SUMMARY ---
ADMISSION DATE: 08/21/2019 DISCHARGE DATE: 08/25/2019 DISCHARGE DIAGNOSES: 1. Sepsis due to Serratia marcescens bacteremia/pneumonia. 2. Right lower lobe pneumonia, with positive culture that showed Serratia marcescens. 3. Urinary tract infection due to Pseudomonas. 4. History of cerebral palsy, with tracheostomy and suprapubic catheter, intravenous line. 5. Seizure disorder. 6. Gastroesophageal reflux disease. 7. Moderate to severe protein calorie malnutrition. PROCEDURES PERFORMED: 1. Chest x-ray dated 08/21/2019. Impression: No pneumonia. 2. Abdomen and pelvis CT scan dated 08/21/2019. Impression: Dense right basilar infiltrate compatible with pneumonia, constipation, bilateral renal densities compatible with nonobstructing renal stones. CONSULT: Infectious Disease Department, Dr. Shilo Bush. HOSPITAL COURSE: A 28-year-old male admitted on 08/21/2019 with a past medical history of cerebral palsy, seizure disorder, frequent UTIs with a suprapubic catheter, bed bound state, tracheostomy, status post right IJ Groshong catheter, was brought to the emergency department, and as per the mother, the patient was having low-grade temperature of 99 degrees, but the night prior to admission it increased to 103. He also had some diarrhea that resolved by itself. His last seizure was over a week ago at school. He is currently on a regular diet that is chopped well. Workup in the emergency department showed urinary tract infection and right lower lobe pneumonia. He received some treatment in the emergency department, but then he was placed on broad-spectrum antibiotics, breathing treatment, and we will continue with the rest of his medications. We took blood culture, urine culture and sputum culture. All of them were negative. Blood culture and sputum culture showed Serratia marcescens. Urine culture showed Pseudomonas aeruginosa, all of then sensitive to Zosyn. Infectious Disease Department has been following this patient closely. This patient has been tolerating p.o. well. His blood pressure has been mostly in the 100s, but as per the family, the blood pressure is always between 110s and 120s. He does not have any acute kidney injury and he does not look dehydrated. White blood cell count was obtained upon admission and today is 4.7, neutrophil count was 81.3 upon admission and today is 64. BMP is grossly normal. He is anemic, but this is chronic. The last time he got a fever of 101 was on 08/21/2019, and yesterday he had a temperature of 100 just one time then normalized. Like I mentioned before, he has been tolerating p.o. really well. He does have cerebral palsy so he is not following commands. He has been receiving Zosyn and he has been doing fine. No reaction to this medication. The case has been discussed with the family, grandmother and the nurse, and his nurse at the bedside. They asked Dr. Bush for the possibility of sending this patient home with IV antibiotics, so he will be discharged today and he will receive Zosyn every 8 hours at home full dose. I instructed the mother, grandmother and the nurse that if they notice any change like nausea, vomiting, fever, diarrhea, or if the patient is lethargic please to bring this patient back immediately to the OR. They state that given his current condition they would like to take this patient home so they are more comfortable as well as the patient, on the other hand this patient is DNR level 1. We will check a new blood culture today and we will review this blood culture, and Dr. Bush will review this blood culture next Wednesday. We talked to the mother and if this is positive, likely we need to switch the antibiotics and/or readmit the patient. PHYSICAL EXAMINATION: Vital Signs: Temperature 97.7 degrees, pulse 80, respiratory rate 18, blood pressure 100/60, oxygen saturation 94% on room air. HEENT: Head normocephalic, atraumatic. PERRLA. Neck: Supple. No JVD. No masses. Central trachea. There is a tracheostomy in place. Cardiovascular: RRR. Chest: Decreased breath sounds with some crepitus and coarse breath sounds at the bases. Abdomen: Soft. Suprapubic catheter in place. I do not see any secretion or infection. Extremities: They are contracted. No signs of infection. Decreased muscle mass. Neurologic: This patient is resting in bed. He seems to be eating without any problem. He has a history of cerebral palsy. He is not following commands. LABORATORY: WBC 4.7, hemoglobin 9.5, hematocrit 30.2, platelets 223,000. Sodium 141, potassium 3.5, chloride 106, bicarbonate 25, BUN 6, creatinine 0.8, glucose 108. Calcium 9.5. DISCHARGE MEDICATIONS: 1. Baclofen 40 mg p.o. t.i.d. 2. Clonazepam 0.5 mg p.o. at bedtime, 0.25 mg p.o. q.a.m. 3. Docusate 100 mg p.o. b.i.d. 4. Jessie 60 mg p.o. b.i.d. 5. Gabapentin 100 mg p.o. q.a.m., 300 mg p.o. at bedtime. 6. Lamictal 100 mg p.o. q.a.m. and 150 mg p.o. at bedtime. 7. Xopenex 0.63 mg inhaler q.6 hours as needed. 8. Montelukast 10 mg p.o. daily. 9. Warfarin 1 mg p.o. at bedtime. 10. Zosyn 4.5 g IV q.8 hours for 14 days. PLAN: Follow up with his primary care doctor in 1 week. He will be discharged and [facility] will take care of the medications. cc: Carlos Aviles MD
== END 2019-08-25 14:12 | disposition home health service (06) | DRG 871 ==
LOC: ED 08:13 → SUATTDRO 16:40 → 3N 16:40
PROVIDERS: ATTEND Internal Medicine

== ENCOUNTER 2019-08-26 08:18 | Inpatient (IN) ==
[2019-08-26] MEDS ORDERED: DIPRIVAN 1% ONE (11:26)
[2019-08-26] MEDS ORDERED: XYLOCAINE-MPF 2% ONE (11:26)
[2019-08-26] MEDS ORDERED: ZOFRAN IV PRN (11:37)
[2019-08-26] MEDS ORDERED: TYLENOL PO PRN (11:37)
[2019-08-26 12:06] LABS: BASO# 0.03 X1000 (0.0-0.2); BASO% 0.5 % (0.0-0.8); EOS# 0.17 X1000 (0.0-0.7); EOS% 2.7 % (0.0-10.0); HEMATOCRIT 36.9 % (42.0-52.0); HEMOGLOBIN 11.7 g/dL (14.0-18.0); LYMPH# 1.63 X1000 (1.2-3.4); LYMPH% 26.2 % (20.5-51.1); MCH 26.3 PG (27-31); MCHC 31.7 g/dL (33-37); MCV 82.9 FL (81-99); MONO# 0.38 X1000 (0.11-0.59); MONO% 6.1 % (1.7-9.3); MPV 8.7 FL (7.4-10.4); NEUT% 64.5 % (42.2-75.2); PLT 337 X1000 (130-400); RBC 4.45 XMIL (4.7-6.1); RDW 15.7 % (11.5-14.5); WBC 6.21 X1000 (4.8-10.8)
--- NOTE | 2019-08-26 12:16 | Diag Imaging Result Doc PS360 ---
CHEST-PORTABLE - 08/26/2019 INDICATION: PNA COMPARISON: 08/21/2019 FINDINGS: Stable tracheostomy tube. Stable central line. Lung volumes are severely low. No obvious infiltrates. Heart size remains normal. There is constipation in the abdomen. IMPRESSION: Constipation. No infiltrates in the lungs. Electronically signed by Vladimir Frias 08/26/2019 12:13 PM
[2019-08-26 12:23] LABS: AGAP 10; ALB/GLOB RATIO 0.9; ALBUMIN 3.7 g/dL (3.5-5.0); ALKALINE PHOSPHATASE 66 U/L (32-122); BUN 8 mg/dL (8-22); CALCIUM 9.6 mg/dL (8.8-10.2); CHLORIDE 106 mmol/L (98-107); COSMO 281; CREATININE 0.9 mg/dL (0.7-1.2); ESTIMATED GFR > 60; GLUCOSE 98 mg/dL (70-104); GOT 15 U/L (10-34); GPT 17 U/L (10-44); POTASSIUM 4.4 mmol/L (3.5-5.1); SODIUM 142 mmol/L (136-145); TCO2 26 mmol/L (25-35); TOTAL BILIRUBIN 0.19 mg/dL (0.20-1.00); TOTAL PROTEIN 7.8 g/dL (6.3-8.3)
[2019-08-26] MEDS: ZOSYN 3.375 GM in NS 50 ML IV SCH ×3 (12:29→23:01)
[2019-08-26] MEDS: NS 1,000 ML IV SCH (12:29)
[2019-08-26] MEDS ORDERED: VERSED ONE (12:47)
[2019-08-26] MEDS ORDERED: SENSORCAINE 0.25%/EPI 1:200,000 ONE (12:55)
--- NOTE | 2019-08-26 14:55 | HISTORY AND PHYSICAL ---
PRIMARY CARE PROVIDER: Dr. Sheffield. CHIEF COMPLAINT: Direct admission secondary to positive blood cultures with gram-negative rods. HISTORY OF PRESENT ILLNESS: Mr. Ruiz is a is a 28-year-old gentleman with a past medical history of cerebral palsy, seizure disorder, frequent UTIs with a suprapubic catheter and a tracheostomy status post a right IJ Groshong catheter. The patient had recently been admitted to our services on 08/21/2019 through 08/25/2019. He was found to have a pneumonia and urinary tract infection. We consulted Dr. Shilo Bush. He has been on IV Zosyn. He had a stable course throughout his hospital admission however at the family's urging, they wish to be discharged home to continue with his care and IV antibiotics with Dr. Bush with IV Zosyn. However they were instructed that if his most previous set of blood cultures that were taken yesterday grew out positive that he would have to be readmitted to the hospital and have his Groshong catheter removed. They did report early this morning and that it came back with gram-negative rods. Dr. Shrestha is aware of the patient being admitted. He will probably be taken to the OR today to have the IV catheter removed and continue with IV antibiotics until cultures are clear. PAST MEDICAL HISTORY: 1. Cerebral palsy. 2. Frequent urinary tract infections with a suprapubic catheter. 3. Seizure disorder. 4. GERD. 5. Legally blind. PAST SURGICAL HISTORY: 1. Scoliosis with nancy insertion and subsequent nancy removal secondary to infection. 2. Suprapubic catheter. 3. Tracheostomy. 4. Lithotripsy. 5. Fundoplication. 6. Right-sided Port-A-Cath placement with removal. 7. Right upper PICC arm with removal. 8. Groshong placement. SOCIAL HISTORY: He lives with his parents. No alcohol, tobacco, or illicit drug use. He is full care. FAMILY HISTORY: Nothing significant. Initial vital signs temperature is 98.2 degrees axillary, heart rate 98, respiratory 18, blood pressure 92/67, O2 99% on room air.General: Mr. Ruiz is a 28-year-old gentleman who is lying on the bed in no acute distress. Mother is at bedside. He does appear chronically ill but he is awake, nonverbal, does not follow any commands. HEENT: Atraumatic, normocephalic. HERBER. Neck: Supple. Trachea midline. Tracheostomy in place. CV: S1, S2 appreciated. No murmurs, gallops, rubs noted. Respiratory: Lung sounds bilateral rhonchi. Abdomen: Flat, soft, nontender, positive bowel sounds 4 quads. Skin: He has a Groshong catheter to the right upper chest. Extremities: Contracted. No signs of cyanosis. Neuro: Unable to assess. DIAGNOSTIC DATA: Ordered and pending. LABORATORY DATA: Ordered and pending. ASSESSMENT AND PLAN: 1. Serratia marcescens Pseudomonas bacteremia pneumonia. He has been on intravenous Zosyn since admission and was discharged on intravenous Zosyn however secondary to positive blood cultures, he will have his Groshong catheter removed today. 2. Urinary tract infection secondary to Pseudomonas susceptible to Zosyn. Continue Zosyn. 3. History of cerebral palsy with tracheostomy and suprapubic catheter. 4. Seizure disorder. Continue home medications when verified. 5. Gastroesophageal reflux disease. Continue proton pump inhibitor. 6. Legally blind. 7. Further recommendation to follow physician evaluation, laboratory and diagnostic data. Dictated by MOIRA Phelan for Carlos Aviles MD cc: Shilo Bush MD
[2019-08-26] MEDS: LIORESAL PO SCH (17:19)
[2019-08-26] MEDS: COUMADIN PO SCH (20:41)
[2019-08-26] MEDS: NEURONTIN PO SCH (20:41)
[2019-08-26] MEDS: COLACE PO SCH (20:41)
[2019-08-26] MEDS: LAMICTAL PO SCH (20:41)
[2019-08-26] MEDS: ALLEGRA PO SCH (20:42)
[2019-08-26] MEDS: KLONOPIN PO SCH (20:42)
[2019-08-26] MEDS: XOPENEX NEB INH PRN (21:20)
[2019-08-27] MEDS: NS 1,000 ML IV SCH ×2 (04:37→17:59)
[2019-08-27] MEDS: ZOSYN 3.375 GM in NS 50 ML IV SCH ×4 (04:45→23:30)
[2019-08-27 05:43] LABS: BASO# 0.02 X1000 (0.0-0.2); BASO% 0.4 % (0.0-0.8); EOS# 0.22 X1000 (0.0-0.7); EOS% 4.7 % (0.0-10.0); HEMATOCRIT 34.2 % (42.0-52.0); HEMOGLOBIN 10.6 g/dL (14.0-18.0); LYMPH# 1.75 X1000 (1.2-3.4); LYMPH% 37.3 % (20.5-51.1); MCH 25.7 PG (27-31); MONO% 6.4 % (1.7-9.3); MPV 8.9 FL (7.4-10.4); NEUT% 51.2 % (42.2-75.2); PLT 323 X1000 (130-400); RBC 4.12 XMIL (4.7-6.1); RDW 15.8 % (11.5-14.5); WBC 4.69 X1000 (4.8-10.8)
[2019-08-27 06:07] LABS: AGAP 10; ALB/GLOB RATIO 0.9; ALBUMIN 3.3 g/dL (3.5-5.0); ALKALINE PHOSPHATASE 56 U/L (32-122); BUN 9 mg/dL (8-22); CALCIUM 8.9 mg/dL (8.8-10.2); CHLORIDE 108 mmol/L (98-107); COSMO 281; CREATININE 0.9 mg/dL (0.7-1.2); ESTIMATED GFR > 60; GLUCOSE 80 mg/dL (70-104); GOT 14 U/L (10-34); GPT 13 U/L (10-44); MAGNESIUM 1.9 mg/dL (1.5-2.7); POTASSIUM 4.2 mmol/L (3.5-5.1); SODIUM 142 mmol/L (136-145); TCO2 24 mmol/L (25-35); TOTAL BILIRUBIN 0.18 mg/dL (0.20-1.00); TOTAL PROTEIN 6.8 g/dL (6.3-8.3)
--- NOTE | 2019-08-27 07:18 | Diag Imaging Result Doc PS360 ---
CHEST-PORTABLE - 08/27/2019 INDICATION: Post R groshong removal COMPARISON: 08/26/2019 FINDINGS: The right central line has been removed. Stable tracheostomy tube. The lungs are clear. Heart size is normal. No pneumothorax or pleural effusion. IMPRESSION: No acute disease or complication. Electronically signed by Vladimir Frias 08/27/2019 7:16 AM
[2019-08-27] MEDS: KLONOPIN PO SCH ×2 (08:50→20:49)
[2019-08-27] MEDS: SINGULAIR PO SCH (08:50)
[2019-08-27] MEDS: COLACE PO SCH ×2 (08:50→20:48)
[2019-08-27] MEDS: NEURONTIN PO SCH ×2 (08:51→20:48)
[2019-08-27] MEDS: LAMICTAL PO SCH ×2 (09:39→20:49)
[2019-08-27] MEDS: LIORESAL PO SCH ×3 (09:39→17:58)
[2019-08-27] MEDS: ALLEGRA PO SCH ×2 (09:39→20:48)
--- NOTE | 2019-08-27 09:52 | OPERATIVE NOTE ---
PROCEDURE DATE: 08/26/2019 PREOPERATIVE DIAGNOSIS: Groshong sepsis. PROCEDURE: Groshong removal. DESCRIPTION OF PROCEDURE: The patient was brought to the operating room. After satisfactory IV and MAC anesthesia, his right chest was prepped and draped in the appropriate manner. The Groshong suture was removed and the Groshong itself was manually removed in one piece. There was minimal back bleeding. Steri-Strips a sterile dressing were applied at the exit site. The patient was awakened in the operating room and transferred to recovery. ESTIMATED BLOOD LOSS: 1-2 mL. cc: Joseluis Shrestha MD
--- NOTE | 2019-08-27 10:37 | PROGRESS NOTE ---
DATE: 08/27/2019 SUBJECTIVE: This patient is resting comfortably in bed. He has been tolerating p.o. Vital signs are stable. A Groshong catheter has been removed yesterday. I will repeat a new blood culture tomorrow morning, and follow this patient closely. OBJECTIVE: Vital Signs: Temperature 97.8 degrees, pulse 73, respiratory rate 14, blood pressure 106/67, oxygen saturation 94% on room air. HEENT: Head normocephalic. No trauma. PERRLA. Neck: Supple. No JVD. No masses. Central trachea. There is a tracheostomy in place. Cardiovascular: RRR. Chest: Decreased breath sounds with some crackles and coarse breath sounds at the bases. Abdomen: Soft. Suprapubic catheter in place. I do not see any secretion. Extremities: They are contracted. No signs of cyanosis. Neurological: The patient is resting in bed. He seems to be awake. He has a history of cerebral palsy. He is tolerating p.o. He is not following commands. LABORATORY DATA: WBC 4.6, hemoglobin 10.6, hematocrit 34.2, platelets 323,000. Sodium 142, potassium 4.2, chloride 108, bicarbonate 24, BUN 9, creatinine 0.9, glucose 80, calcium 8.9. Magnesium 1.9. Total bilirubin 0.18, AST 14, ALT 13, alkaline phosphatase 56, albumin 3.3. ASSESSMENT AND PLAN: 1. Serratia marcescens pneumonia and bacteremia. We repeated a new blood culture on 08/25/2019 that showed again, Serratia marcescens. He has been on antibiotics since 08/21/2019. Infectious Disease Department has been following this patient closely. He was discharged on 08/25/[address] Bush from Infectious Disease Department as an outpatient, but we received the notification of a positive culture from blood that showed gram-negative rods, and now is showing Serratia marcescens again, so we removed a catheter that this patient had, a Groshong catheter, since this could be the source of the infection. Will continue antibiotics. I will repeat the blood culture tomorrow morning, and hopefully he can be discharged in a couple days after that, if the blood culture is negative. 2. Pseudomonal urinary tract infection, sensitive to Zosyn. Continue with the same management. 3. History of cerebral palsy with tracheostomy and suprapubic catheter. 4. Seizure disorder. Continue home medication. 5. Gastroesophageal reflux disease. Continue with proton pump inhibitors. 6. This patient is legally blind. 7. [id number] protein calorie malnutrition. Continue with his diet. cc: Carlos Aviles MD
[2019-08-27] MEDS: COUMADIN PO SCH (20:48)
[2019-08-28] MEDS: NS 1,000 ML IV SCH ×2 (04:53→17:59)
[2019-08-28 05:29] LABS: BASO# 0.03 X1000 (0.0-0.2); BASO% 0.4 % (0.0-0.8); EOS# 0.21 X1000 (0.0-0.7); EOS% 3.1 % (0.0-10.0); HEMATOCRIT 35.1 % (42.0-52.0); HEMOGLOBIN 11.2 g/dL (14.0-18.0); MCH 26.2 PG (27-31); MCHC 31.9 g/dL (33-37); MCV 82.2 FL (81-99); MONO# 0.32 X1000 (0.11-0.59); MONO% 4.7 % (1.7-9.3); MPV 8.6 FL (7.4-10.4); NEUT# 4.53 X1000 (1.4-6.5); NEUT% 66.8 % (42.2-75.2); PLT 362 X1000 (130-400); RBC 4.27 XMIL (4.7-6.1); RDW 15.5 % (11.5-14.5); WBC 6.79 X1000 (4.8-10.8)
[2019-08-28 05:57] LABS: AGAP 12; BUN 9 mg/dL (8-22); CALCIUM 9.1 mg/dL (8.8-10.2); CHLORIDE 107 mmol/L (98-107); COSMO 281; CREATININE 1.1 mg/dL (0.7-1.2); ESTIMATED GFR > 60; GLUCOSE 92 mg/dL (70-104); SODIUM 142 mmol/L (136-145); TCO2 23 mmol/L (25-35)
[2019-08-28] MEDS: ZOSYN 3.375 GM in NS 50 ML IV SCH ×4 (06:29→23:38)
--- NOTE | 2019-08-28 06:40 | INFECTIOUS DISEASE PROGRESS NO ---
DATE: 08/28/2019 PRESENT ILLNESS: The patient has repeat positive blood cultures for Serratia. He had his Groshong catheter removed. The catheter was thought to be the source of the bacteremia. The patient has a Serratia bacteremia and pneumonia. He has a Pseudomonas urinary tract infection. MEDICATIONS: The patient is receiving Zosyn 3.375 g IV every 6 hours. PHYSICAL EXAMINATION: Vital Signs: Temperature 98.1 degrees, pulse 72, respirations 19, and blood pressure 100/55. General: This is a chronically ill-appearing young male. He has cerebral palsy. Head, eyes, ears, nose, and throat: His eyes are open. There is no drainage coming from his nose or ears. I did not see any white patches in his mouth. Neck: He did not seem to have any pain when I passively moved his neck. Lungs: Clear to auscultation. Cardiovascular: Heart rate is regular. Thorax: The patient's right Groshong catheter has been removed. The catheter site has a dressing over it. Abdomen and Pelvis: The patient has a suprapubic catheter in place. The catheter site is not erythematous or purulent. The abdomen is soft and not tender. Neurologic: The patient's eyes were open. He did not move his extremities while I was watching him. LABORATORY AND X-RAY: Chest x-ray shows clear lung gates. CBC shows a white count of 6790, hemoglobin 11.2, and platelet count 362,000. Creatinine is 1.1. GFR is greater than 60. Blood cultures which were drawn this morning are pending. ASSESSMENT AND PLAN: The patient has a Serratia pneumonia and bacteremia. The bacteremia is thought to have arisen from the patient's Groshong which has been removed. The patient also has a Pseudomonas urinary tract infection. My plan is to continue Zosyn for a total of 14 days with day 1 being the first day that the repeat blood cultures which were drawn this morning are sterile. COMORBIDITIES: The patient has cerebral palsy. He also has a history of seizures, gastroesophageal reflux disease, and recurrent infections including urinary tract infections, pneumonia and bacteremias from the infected intravenous catheters. The patient also is legally blind. cc: Shilo Bush MD
[2019-08-28] MEDS: KLONOPIN PO SCH ×2 (09:21→20:51)
[2019-08-28] MEDS: NEURONTIN PO SCH ×2 (09:22→20:51)
[2019-08-28] MEDS: SINGULAIR PO SCH (09:22)
[2019-08-28] MEDS: ALLEGRA PO SCH ×2 (09:22→20:51)
[2019-08-28] MEDS: LIORESAL PO SCH ×3 (09:22→18:01)
[2019-08-28] MEDS: LAMICTAL PO SCH ×2 (09:22→20:51)
[2019-08-28] MEDS: COLACE PO SCH ×2 (09:22→20:50)
[2019-08-28] MEDS: COUMADIN PO SCH (20:51)
[2019-08-28] MEDS ORDERED: FLEET MINERAL OIL ENEMA PR ONE (20:56)
[2019-08-28] MEDS: MYCOSTATIN POWDER TOP SCH (22:29)
[2019-08-29] MEDS: ZOSYN 3.375 GM in NS 50 ML IV SCH ×4 (04:56→23:05)
[2019-08-29] MEDS: NS 1,000 ML IV SCH (05:25)
--- NOTE | 2019-08-29 06:25 | PROGRESS NOTE ---
DATE: 08/28/2019 INTERVAL HISTORY: No acute events overnight. SUBJECTIVE: He is nonverbal. Mother is at bedside. VITALS: Temperature 98 degrees, pulse 87, respiratory rate 15, blood pressure 100/60, and saturating 96% on room air. PHYSICAL EXAMINATION: General: Patient is sleeping, not in distress. HEENT: Oral cavity is moist. Lungs: Air entry bilaterally equal. No wheezing, rhonchi or crackles. Cardiovascular: S1, S2 normal. No murmur or gallop. Abdomen: Soft and nontender. Suprapubic catheter site is not inflamed. His right-sided chest port removal site appears to be healing well without any pus pocket. Extremities: No lower extremity edema. He has cerebral palsy. Skin: He does have some erythema in the scrotal region. LABORATORY: Labs suggestive of no leukocytosis. Normal hemoglobin. Normal platelet count. Normal electrolytes. Blood culture drawn on 07/29 is unremarkable. ASSESSMENT AND PLAN: 1. Serratia pneumonia and bacteremia. Continue intravenous Zosyn. Follow up repeat blood cultures, status post right-sided intravenous access removal by Dr. Shrestha. 2. Pseudomonas UTI. Continue antibiotics as per ID recommendation associated with suprapubic catheter. 3. History of cerebral palsy, status post tracheostomy, status post suprapubic catheter, and history of seizure. I will continue home medications of clonazepam, gabapentin, and lamotrigine. 4. GERD. Continue proton pump inhibitors. 5. Continue warfarin, which patient has been taking for prevention of DVT. 6. Disposition: Awaiting negative blood cultures. Plan of care discussed with the patient's mother. Her questions have been answered. I will give him enema and nystatin powder for constipation and tinea cruris respectively. cc: Herson Polo MD
[2019-08-29] MEDS: LIORESAL PO SCH ×3 (09:06→16:50)
[2019-08-29] MEDS: COLACE PO SCH ×2 (09:06→20:17)
[2019-08-29] MEDS: LAMICTAL PO SCH ×2 (09:07→20:18)
[2019-08-29] MEDS: SINGULAIR PO SCH (09:07)
[2019-08-29] MEDS: NEURONTIN PO SCH ×2 (09:07→20:17)
[2019-08-29] MEDS: ALLEGRA PO SCH ×2 (09:07→20:17)
[2019-08-29] MEDS: KLONOPIN PO SCH ×2 (09:07→20:17)
[2019-08-29] MEDS: MYCOSTATIN POWDER TOP SCH ×2 (09:10→20:18)
[2019-08-29] MEDS ORDERED: NS 1,000 ML IV SCH ×2 (09:25→09:45)
[2019-08-29] MEDS ORDERED: NS 500 ML IV ONE (09:37)
[2019-08-29] MEDS ORDERED: NS 500 ML ONE (09:45)
--- NOTE | 2019-08-29 11:27 | PROGRESS NOTE ---
DATE: 08/29/2019 INTERVAL HISTORY: No acute events overnight. The patient received an enema in the morning time. He is feeling a little sleepy as per the mother at bedside. His blood pressure has been on the lower side and I am going to order 500 mL of bolus for him. He does not engage in meaningful conversation. He has cerebral palsy. OBJECTIVE: VITAL SIGNS: Temperature 98.5 degrees, pulse 65, respiratory rate 18, blood pressure 106/62. He is saturating 95% on room air. PHYSICAL EXAMINATION: General: Does not appear in acute distress. No pallor, cyanosis, clubbing, or icterus. He does have a tracheostomy. Lungs: Air entry bilaterally equal. No wheeze, rhonchi, crackles. Cardiovascular: S1, S2 normal. No murmur, rub or gallop. Abdomen: Soft nontender. Suprapubic catheter is not inflamed. It has some residues. Chest: Right- sided chest wall removal site appears to be healing well without any pus pocket. Extremities: No lower extremity edema. LABORATORY DATA: No CBC or BMP today. ASSESSMENT AND PLAN: 1. Serratia pneumonia with bacteremia as well as Pseudomonas urinary tract infection. Follow up repeat blood cultures on August 28, status post right-sided intravenous access removal by Dr. Shrestha, continue intravenous Zosyn, his suprapubic catheter is changed every 2 weeks. 2. History of cerebral palsy status, tracheostomy, suprapubic catheter and seizure. Continue home medications of clonazepam, gabapentin, lamotrigine. 3. Chronic gastroesophageal reflux disease. Continue proton pump inhibitors. 4. Continue warfarin which he had been taking for prevention of deep venous thrombosis at home and I had a discussion with his mother about pros and cons of using it and on previous admission, she had insisted on continuing it. 5. Disposition. Awaiting negative blood cultures. I will give him 500 mL of bolus and continue intravenous fluids. Plan of care discussed with his mother. His questions have been answered. cc: Herson Polo MD
[2019-08-29] MEDS: COUMADIN PO SCH (20:18)
[2019-08-30] MEDS: ZOSYN 3.375 GM in NS 50 ML IV SCH ×2 (05:29→13:22)
[2019-08-30 07:49] LABS: INR 1.09; PROTIME 14.3 Seconds (11.0-16.0)
[2019-08-30 08:10] VITALS: BP 89/47
[2019-08-30] MEDS: MYCOSTATIN POWDER TOP SCH (09:07)
[2019-08-30] MEDS: XOPENEX NEB INH PRN (09:20)
--- NOTE | 2019-08-30 09:22 | INFECTIOUS DISEASE PROGRESS NO ---
DATE: 08/30/2019 PRESENT ILLNESS: The patient has a Serratia bacteremia and an accompanying pneumonia. I think the bacteremia originated from his Groshong catheter which has been removed. The patient also has a Pseudomonas urinary tract infection. MEDICATIONS: The patient is receiving Zosyn 3.375 g IV every 6 hours. 48 hours ago the patient had blood cultures and they were negative; therefore, today will be #1 because this is the first day that the patient's repeat blood cultures are sterile. PHYSICAL EXAMINATION: Vital Signs: Temperature is 97.5 degrees, pulse 64, respirations 18, blood pressure 97/62. General: This is a chronically ill-appearing young male. He is in no acute distress. Head, eyes, ears, Nose, and Throat: His eyes are open. There is no drainage from his nose or ears. I did not see any white patches in his mouth. Neck: The patient has a permanent tracheostomy. Lungs: Clear to auscultation. Cardiovascular: Heart rate is regular. Thorax- the patient's Groshong catheter has been removed. As I mentioned above, the catheter site is not swollen or erythematous. Abdomen: Soft and nontender. The patient has a suprapubic catheter in place. The catheter site is not draining or purulent. Neurologic: The patient's eyes are open. He did not respond to verbal stimuli. There was no tremor. LAB AND X-RAY: There is no new lab or x-ray with the exception that today's 48 hour reading of his blood cultures shows that the blood cultures are negative. ASSESSMENT AND PLAN: Patient has aspiration pneumonia and bacteremia and a Pseudomonas urinary tract infection. I put in a consult to have a PICC placed. I have also put in an order to get a ProTime with INR. The patient will have a PICC placed today and he will need 12 more days of IV antibiotics, namely Zosyn 4.5 g IV every 8 hours, or as mentioned above, 12 more days. COMORBIDITIES: Patient has cerebral palsy, history of seizures, gastroesophageal reflux disease, recurrent infections, and the patient is legally blind. cc: Shilo Bush MD
[2019-08-30] MEDS: KLONOPIN PO SCH (09:32)
[2019-08-30] MEDS: COLACE PO SCH (09:32)
[2019-08-30] MEDS: SINGULAIR PO SCH (09:32)
[2019-08-30] MEDS: NEURONTIN PO SCH (09:32)
[2019-08-30] MEDS: LIORESAL PO SCH ×2 (09:32→13:22)
[2019-08-30] MEDS: LAMICTAL PO SCH (09:32)
[2019-08-30] MEDS: ALLEGRA PO SCH (09:32)
[2019-08-30] MEDS: LACTULOSE PO SCH ×2 (09:33→13:06)
[2019-08-30] MEDS: DULCOLAX PR SCH ×2 (09:34→13:06)
[2019-08-30] MEDS ORDERED: NS 250 ML ONE (12:22)
--- NOTE | 2019-08-30 15:08 | DISCHARGE SUMMARY ---
ADMISSION DATE: 08/26/2019 DISCHARGE DATE: 08/30/2019 DISCHARGE DISPOSITION: Home with family. DISCHARGE CONDITION: He is hemodynamically stable. His blood culture has not shown any growth for 48 hours. He is getting a PICC line and home antibiotics set up. DISCHARGE DIAGNOSES: 1. Serratia sepsis from Serratia pneumonia as well as persistent bacteremia associated with right-sided chest central venous access. 2. Pseudomonas UTI. 3. Hypotension due to intravascular volume depletion and sepsis. 4. Constipation OTHER DIAGNOSES: 1. History of cerebral palsy, status post tracheostomy and suprapubic catheter. 2. History of seizure disorder. 3. Chronic gastroesophageal reflux disease. 4. On chronic warfarin therapy for DVT prophylaxis. 5. Legally blind. 6. History of frequent UTI. 7. Bed-bound status and tracheostomy. DISCHARGE MEDICATION: 1. Zosyn 4.5 g every 8 hours through PICC line for 12 more days. 2. Warfarin 1 mg at nighttime. 3. Clonazepam 0.5 mg at nighttime. 4. Lamotrigine 150 mg at nighttime and 100 mg in the morning. 5. Gabapentin 300 mg at nighttime and 100 mg in the morning. 6. Fexofenadine 60 mg b.i.d. 7. Baclofen 40 mg t.i.d. 8. Docusate 100 mg b.i.d. 9. Clonazepam 0.25 mg in the morning time. 10. Montelukast 10 mg daily. 11. Lactulose 30 mL b.i.d. 12. Nystatin 60 g bottle to be applied over scrotal region. 13. Levalbuterol 0.63 mg inhaled q. 6 hours as needed for shortness of breath. VITALS: At the time of discharge temperature 97.8 degrees, pulse 63, respiratory 20, blood pressure 97/65. He is saturating 100% on room air. PHYSICAL EXAMINATION: The patient did not appear in any acute distress. He is nonverbal at baseline. He keeps his mouth open. He has tracheostomy. Lungs: Air entry bilaterally equal. No wheeze, rhonchi, crackles. Cardiovascular: S1, S2 normal. No murmur or gallop. Right chest wall site central venous catheter access site has been dressed without any pus pocket or bleeding. Abdomen: Soft, nontender. He has a suprapubic catheter. He has no lower extremity edema. He was alert. He is nonverbal. SIGNIFICANT LABS: During hospital admission discharge, WBC 6.7, hemoglobin 11.2, platelet 362,000. PT and INR of 1.09. BUN of 9, creatinine of 1.1. Microbiology blood culture drawn on August 28 did not show any growth to date. SIGNIFICANT IMAGING DURING THIS HOSPITAL ADMISSION: Chest x-ray performed had constipation without any infiltrates of the lung. On chest x-ray on August 27, I did not have any acute pathology. HOSPITAL COURSE SUMMARY: Mr. Ruiz is a 28-year-old male with history of cerebral palsy and status post tracheostomy, suprapubic catheter, and multiple UTIs, who was initially admitted between August 21 and 08/25/2019 for his right lower lobe pneumonia because of Serratia leading to Serratia sepsis as well as Pseudomonas UTI. He was treated with antibiotics. He was advised to remain inside the hospital for need for continuous IV antibiotics since the negative blood cultures could not be obtained. However, the patient's family had requested to let him go home on home antibiotics and have outpatient follow-up. However, as soon as he went back home the next day, the blood cultures drawn turned positive and he was called in to be admitted again. He was continued on Zosyn and repeat set of blood cultures were drawn which where negative during this hospital course. His right-sided central venous catheter access was also removed. Apparently, he had a right internal jugular Groshong catheter, which was thought to be contributing to his bacteremia as well. At the time of dictation, his blood culture drawn on August 28 has not shown any growth for 48 hours. It was decided to discharge the patient home. The patient also had constipation and he will be given lactulose at the time of discharge. Plan of care was discussed with the patient's mother. All of her questions were satisfactorily answered at baseline. Patient eats by mouth chopped food. cc: MD EMELINA Clark
== END 2019-08-30 13:43 | disposition home or self-care (01) | DRG 252 ==
LOC: SUATTDRO 08:18 → DIRADM 08:18 → 1N 11:28
PROVIDERS: ATTEND Internal Medicine

== ENCOUNTER 2019-09-22 10:00 | Inpatient (IN) ==
--- NOTE | 2019-09-22 10:28 | Diag Imaging Result Doc PS360 ---
EXAM: CHEST-1 VIEW HISTORY: fever, recent pneumonia TECHNIQUE: Single view COMPARISON: 08/27/2019 FINDINGS: No change in the tracheostomy tube. There is now a right-sided PICC line. The tip overlies the right atrium. Similar lung expansion compared to the prior exam. No cardiomegaly. There are mild increased interstitial markings medially in the right lung base. No pleural effusions identified. IMPRESSION: Small right lower lobe pneumonia. Follow-up PA and lateral recommended. Electronically signed by Emerson Means 09/22/2019 10:26 AM
[2019-09-22] MEDS ORDERED: VANCOMYCIN IV PER PHARMACY MISC SCH (10:45)
[2019-09-22 10:50] LABS: URINE SOURCE CATH
[2019-09-22 10:54] LABS: BASO# 0.02 X1000 (0.0-0.2); BASO% 0.4 % (0.0-0.8); EOS# 0.13 X1000 (0.0-0.7); EOS% 2.6 % (0.0-10.0); HEMATOCRIT 35.3 % (42.0-52.0); HEMOGLOBIN 11.6 g/dL (14.0-18.0); MCH 27.6 PG (27-31); MCHC 32.9 g/dL (33-37); MCV 83.8 FL (81-99); MONO# 0.46 X1000 (0.11-0.59); MONO% 9.2 % (1.7-9.3); MPV 9.8 FL (7.4-10.4); NEUT# 3.91 X1000 (1.4-6.5); NEUT% 77.8 % (42.2-75.2); PLT 124 X1000 (130-400); RBC 4.21 XMIL (4.7-6.1); RDW 15.9 % (11.5-14.5); WBC 5.02 X1000 (4.8-10.8)
[2019-09-22 11:01] LABS: INR 1.16
[2019-09-22 11:02] LABS: PTT 32.1 Seconds (22.3-41.8)
[2019-09-22 11:07] LABS: BILIRUBIN URINE NEGATIVE (NEGATIVE); BLOOD URINE MODERATE (NEGATIVE); COLOR YELLOW; GLUCOSE URINE NEGATIVE (NEGATIVE); KETONE URINE NEGATIVE (NEGATIVE); LEUKOCYTES URINE MODERATE (NEGATIVE); NITRITE URINE NEGATIVE (NEGATIVE); PH URINE 6.5; PROTEIN URINE 30 mg/dL (NEGATIVE); SP GRAVITY URINE 1.017; TURBIDITY URINE CLEAR (CLEAR); UROBILINOGEN URINE NORMAL (NORMAL)
[2019-09-22 11:08] LABS: UR EPITHELIAL CELLS <10 /HPF (<10); URINE BACTERIA NEGATIVE /HPF; URINE RBC TNTC /HPF (<10); URINE WBC 20-40 /HPF (<10)
[2019-09-22] MEDS ORDERED: CUBICIN 300 MG in NS 100 ML IV SCH (11:15)
[2019-09-22 11:37] LABS: AGAP 13; ALB/GLOB RATIO 1.3; ALBUMIN 3.9 g/dL (3.5-5.0); ALKALINE PHOSPHATASE 85 U/L (32-122); BUN 9 mg/dL (8-22); CALCIUM 8.7 mg/dL (8.8-10.2); CHLORIDE 104 mmol/L (98-107); CK PROFILE 58 U/L (24-204); COSMO 281; CREATININE 0.9 mg/dL (0.7-1.2); ESTIMATED GFR > 60; GLUCOSE 109 mg/dL (70-104); GOT 40 U/L (10-34); GPT 38 U/L (10-44); POTASSIUM 3.9 mmol/L (3.5-5.1); SODIUM 141 mmol/L (136-145); TCO2 24 mmol/L (25-35); TOTAL BILIRUBIN 0.42 mg/dL (0.20-1.00); TOTAL PROTEIN 6.9 g/dL (6.3-8.3)
[2019-09-22] MEDS: MERREM 1 GM in NS 50 ML IV SCH ×2 (11:55→17:47)
[2019-09-22] MEDS: ZYVOX 600 MG/D5W 600 MG/300 ML IVPB IV SCH (13:22)
--- NOTE | 2019-09-22 13:46 | INFECTIOUS DISEASE PROGRESS NO ---
DATE: 09/22/2019 PRESENT ILLNESS: The patient was previously been treated last month for a Serratia pneumonia and bacteremia as well as a Pseudomonas urinary tract infection. His mother called us on Wednesday to say that he was having another fever and she did not want to go to the emergency room so we priscilla blood cultures, and got urine and sputum at home and started him on meropenem. Today, she called saying his temperature was up to 105 so we told her she had to come to the ER. MEDICATIONS: He has been receiving meropenem 1 g IV every 8 hours at home since Wednesday evening. PHYSICAL EXAMINATION: Vital signs: Temperature is 101, pulse rate 138, respiratory rate 20, blood pressure 128/90, O2 saturation is 96% on room air. General: This is a chronically ill-appearing young man. He is lying in the bed in no acute distress. He is smiling. HEENT: Atraumatic, normocephalic. Oral mucous membranes are pink and moist. Conjunctivae are pink. Neck: Has a decrease in suppleness. Trachea is midline with a tracheostomy tube in place, that site is without edema, erythema, or drainage. Respiratory: Lung sounds are clear in the upper and middle lobes bilaterally with mildly diminished in the bases. He does have a congested cough. No work of breathing is noted. Cardiovascular: Heart rate and rhythm are regular and fast, sinus tachycardia on the monitor. Abdomen: Soft, flat, and nontender. Bowel sounds are active. Suprapubic catheter site is clean and dry with a dressing in place. Neurologic: He is awake, alert, and nonverbal. He does have his eyes open and is smiling. LABORATORY AND X-RAY: Today, his white count is 5.02, hemoglobin 11.6, platelet count 124,000. Urine WBCs are 20-40 with negative urine bacteria. We did do pancultures on Wednesday at home and so far we have results of Klebsiella in the urine and the blood with a gram- negative nancy growing to the sputum. Chest x-ray today shows small right lower lobe pneumonia. ASSESSMENT AND PLAN: The patient is being treated for a Klebsiella urinary tract infection with associated bacteremia. There is also a gram-negative nancy growing in his sputum. He has a PICC line that has been there for a while so we will have that removed and get a peripheral IV. The patient was started on meropenem, which we will continue. Since he did have a fever with the meropenem, we will add Zyvox 600 mg IV twice daily and continue to watch for the final culture results. These plans have been discussed with and recommended by Dr. Bush. COMORBIDITIES FOR THE PATIENT: Include cerebral palsy, seizure history, gastroesophageal reflux disease, recurrent infections, and he is legally blind and nonverbal. Dictated by MOIRA Del Cid for Shilo Bush MD cc: Shilo Bush MD [facility]
[2019-09-22] MEDS ORDERED: NS 1,000 ML IV ONE ×2 (14:15→14:38)
[2019-09-22] MEDS ORDERED: ZOFRAN IV PRN (14:15)
[2019-09-22] MEDS ORDERED: NS 250 ML IV ONE (14:39)
[2019-09-22] MEDS ORDERED: XOPENEX NEB ONE (15:41)
--- NOTE | 2019-09-22 17:25 | HISTORY AND PHYSICAL ---
PRIMARY CARE PROVIDER: Dr. Sheffield. INFECTIOUS DISEASE DOCTOR: Dr. Shilo Bush. CHIEF COMPLAINT: Fever. HISTORY OF PRESENT ILLNESS: Mr. Ruiz is a 28-year-old gentleman with a past medical history of cerebral palsy, seizure disorder, frequent UTIs with a suprapubic catheter, tracheostomy, status post right IJ Groshong catheter removal, legally blind, most recently being treated for aspiration pneumonia and bacteremia, as well as a pseudomonas urinary tract infection. His mother called Dr. Bush on Wednesday, to report fever as well as seizures. He came to the ED. Blood cultures were drawn as well as urine and sputum at home, and he was started on meropenem through a PICC line. She called Dr. Bush' office again today, stating that his temperature went up to 105, and she was directed to come to the ED. He is going to continue treatment for his Klebsiella urinary tract infection, as well as associated bacteremia and gram-negative rods growing from his sputum. Since he does have a PICC line, this will be removed and they will initiate a peripheral IV. He is currently being started on meropenem, and they will add daptomycin daily and await the final blood cultures. We will go ahead and do a sepsis bolus, although his lactates are completely normal. No white count. However, he was tachycardic and febrile upon arrival, and chest x-ray does indicate a small right lower lobe pneumonia. PAST MEDICAL HISTORY: Cerebral palsy, frequent urinary tract infections, seizure disorder, GERD, legally blind. PAST SURGICAL HISTORY: Scoliosis with nancy insertion with subsequent nancy removal secondary to infection, suprapubic catheter, tracheostomy, lithotripsy, fundoplication, right-sided Port-A-Cath placement with removal, right upper PICC line with removal, another PICC line with removal, Groshong placement and removal. SOCIAL HISTORY: He lives with his parents. He does have a sitter. No tobacco, alcohol, or illicit drug use. He is full care. FAMILY HISTORY: Nothing significant. PHYSICAL EXAMINATION: VITAL SIGNS: Temperature is 97.8 degrees, heart rate 109, respirations 15, blood pressure 126/78, O2 is 96% on room air. GENERAL: Mr. Ruiz is a 28-year-old, male, who is lying on the bed in PCV in no acute distress. HEENT: Atraumatic, normocephalic. PERRL. Mucous membranes are moist. NECK: Trachea appears to be midline. There is a tracheostomy tube in place that is currently dressed and covered. CARDIOVASCULAR: S1, S2 appreciated. No murmurs, gallops, or rubs noted. LUNGS: Sounds, bilateral rhonchi throughout all lung gates. No wheezes or rales. ABDOMEN: Soft, flat, nontender, nondistended. He does have a suprapubic catheter site with a leg bag in place. NEUROLOGIC: He is awake, alert, nonverbal. He has his eyes open, looking around. LABORATORY AND DIAGNOSTIC DATA: White count 5, hemoglobin and hematocrit 11 and 35, platelet count is 124,000. INR is 1.16. Sodium 141, potassium 3.9, BUN 9, creatinine 0.9, blood glucose is 109. Troponin less than 0.010. Initial lactate 1.1, subsequent lactate 0.5. Urine: Too- [id number] RBCs, 20 to 40 WBCs, moderate leukocytes, moderate blood, negative for nitrites, negative for bacteria. Chest x-ray shows a small right lower lobe pneumonia. Microbiology from 09/20/2019: Sputum culture growing gram-negative rods. Urine culture from 09/20/2019, showing Klebsiella pneumonia. ASSESSMENT AND PLAN: 1. Known Klebsiella urinary tract infection with associated bacteremia, as well as gram-negative rods growing from his sputum. He is on meropenem and added doxycycline per Infectious Disease. He has a peripherally inserted central catheter line in place that they put in an order to discontinue and continue with peripheral IV. 2. Right lower lobe pneumonia. We will continue with IV antibiotics per Dr. Bush's recommendation. Awaiting another sputum culture. 3. Cerebral palsy with legal blindness. Aware. 4. Seizure disorder. Continue home medications. 5. Gastroesophageal reflux disease. Continue proton pump inhibitor. 6. Further recommendations to follow physician evaluation, laboratory and diagnostic data. Dictated by MOIRA Phelan for Marlon Galvez MD Addendum: Patient seen and examined by myself. Agree with MOIRA note. It reflects my assessment and plan. Patient is being admitted to hospital for klebsiella UTI and bacteremia. Will start broad spectrum antibiotics as per ID recommendations and will repeat blood cultures as well. cc: MD Shilo Castillo MD [facility] S. Nettie, MD [facility] HOSPITALChristine
[2019-09-22] MEDS: LIORESAL PO SCH (17:47)
[2019-09-22] MEDS: LACTULOSE PO SCH (20:14)
[2019-09-22] MEDS: COUMADIN PO SCH (20:15)
[2019-09-22] MEDS: NEURONTIN PO SCH (20:15)
[2019-09-22] MEDS: KLONOPIN PO SCH (20:15)
[2019-09-22] MEDS: MYCOSTATIN POWDER TOP SCH (20:15)
[2019-09-22] MEDS: ALLEGRA PO SCH (20:15)
[2019-09-22] MEDS: LAMICTAL PO SCH (20:15)
[2019-09-22] MEDS: COLACE PO SCH (20:15)
[2019-09-22] MEDS: OFIRMEV 1000 MG/ISOTONIC SOLN 1,000 MG/100 ML BOTTLE IV PRN (21:58)
[2019-09-22] MEDS: ATIVAN IV PRN (22:08)
[2019-09-22] MEDS: XOPENEX NEB INH PRN (22:49)
[2019-09-23] MEDS: ZYVOX 600 MG/D5W 600 MG/300 ML IVPB IV SCH ×3 (00:44→15:50)
[2019-09-23] MEDS: MERREM 1 GM in NS 50 ML IV SCH ×3 (04:41→20:06)
[2019-09-23 06:54] LABS: BASO# 0.05 X1000 (0.0-0.2); BASO% 1.2 % (0.0-0.8); EOS# 0.19 X1000 (0.0-0.7); EOS% 4.4 % (0.0-10.0); HEMATOCRIT 34.6 % (42.0-52.0); LYMPH# 1.31 X1000 (1.2-3.4); LYMPH% 30.2 % (20.5-51.1); MCH 27.6 PG (27-31); MCHC 31.8 g/dL (33-37); MCV 86.7 FL (81-99); MONO% 13.8 % (1.7-9.3); MPV 9.7 FL (7.4-10.4); NEUT# 2.19 X1000 (1.4-6.5); NEUT% 50.4 % (42.2-75.2); PLT 168 X1000 (130-400); RBC 3.99 XMIL (4.7-6.1); RDW 16.1 % (11.5-14.5); WBC 4.34 X1000 (4.8-10.8)
[2019-09-23 06:58] LABS: AGAP 8; ALB/GLOB RATIO 1.1; ALBUMIN 3.6 g/dL (3.5-5.0); ALKALINE PHOSPHATASE 81 U/L (32-122); BUN 9 mg/dL (8-22); CALCIUM 8.6 mg/dL (8.8-10.2); CHLORIDE 104 mmol/L (98-107); COSMO 271; CREATININE 0.8 mg/dL (0.7-1.2); ESTIMATED GFR > 60; GLUCOSE 104 mg/dL (70-104); GOT 31 U/L (10-34); GPT 30 U/L (10-44); MAGNESIUM 1.8 mg/dL (1.5-2.7); POTASSIUM 3.7 mmol/L (3.5-5.1); SODIUM 136 mmol/L (136-145); TCO2 24 mmol/L (25-35); TOTAL BILIRUBIN 0.25 mg/dL (0.20-1.00); TOTAL PROTEIN 6.8 g/dL (6.3-8.3)
--- NOTE | 2019-09-23 07:27 | Diag Imaging Result Doc PS360 ---
EXAM: CHEST-PORTABLE - 09/23/2019 HISTORY: pna TECHNIQUE: Portable chest COMPARISON: 09/22/2019 FINDINGS: Tracheostomy tube remains in place. The PICC is been removed. Heart size is normal. Inspiration is mildly shallow. The lungs appear clear. There is no pleural effusion or pneumothorax identified. IMPRESSION: Mildly shallow inspiration. No other evidence of acute disease. Electronically signed by Noah Nichols 09/23/2019 7:24 AM
--- NOTE | 2019-09-23 07:57 | PROGRESS NOTE ---
DATE: 09/23/2019 SUBJECTIVE: Upon my examination this morning patient is very sleepy. According to nursing staff, he had 2 episodes of seizures overnight that we are controlling with Ativan. At this point, patient is resting comfortable. OBJECTIVE: Vital Signs: Temperature 98.0 degrees, heart rate 102, respiratory rate 15, blood pressure 138/106, O2 saturation 100% on tracheostomy collar 5 L/minute. General: This is a chronically ill-appearing 28-year-old male with past medical history of cerebral palsy lying in bed, in no acute distress. Cardiovascular: S1 and S2 heard. No murmurs, gallops or rubs. Regular rate and rhythm. Respiratory: Minimal rhonchi noted in both pulmonary gates. The patient is not using any accessory muscles or having work of breathing. Abdomen: Soft, nontender to palpation. The patient has a suprapubic catheter on site with the leg bag in place. Extremity: Contracted. Peripheral pulses present. Neurological: Patient is awake. The patient is sleepy this morning. LABORATORY DATA: Pending at the time of my dictation. ASSESSMENT/PLAN: 1. Klebsiella pneumonia UTI/bacteremia. Currently, this patient is on meropenem 1 g IV q.8 hours and Zyvox 600 mg IV q.12 hours. Those medications have been recommended by ID. The patient has a PICC line. We have ordered another set of blood cultures. Of course, is still pending. At this point, we will continue with the same management. 2. Right lower lobe pneumonia. We will continue with antibiotics as we mentioned above. 3. Cerebral palsy with legal blindness. Aware. 4. Seizure disorder. I think he had 2 episodes of seizures because of this bacteremia infection that he has. According to mother he usually has a seizure episode every 2 to 3 months. I think at this point, we will continue with Ativan p.r.n. and we will evaluate the need for another seizure medication as an outpatient. 5. Gastroesophageal reflux disease. We will continue with Protonix. 6. Disposition. We will continue to monitor this patient closely. We will follow results of blood cultures. cc: Marlon Galvez MD
[2019-09-23] MEDS: LACTULOSE PO SCH ×2 (09:17→17:36)
[2019-09-23] MEDS: LAMICTAL PO SCH ×2 (09:17→17:36)
[2019-09-23] MEDS: KLONOPIN PO SCH ×2 (09:17→17:36)
[2019-09-23] MEDS: COLACE PO SCH ×2 (09:17→17:35)
[2019-09-23] MEDS: SINGULAIR PO SCH (09:17)
[2019-09-23] MEDS: NEURONTIN PO SCH ×2 (09:17→17:36)
[2019-09-23] MEDS: LIORESAL PO SCH ×3 (09:18→17:35)
[2019-09-23] MEDS: ALLEGRA PO SCH ×2 (09:18→17:36)
--- NOTE | 2019-09-23 10:19 | EKG Report ---
Test Performed on : 09/23/2019 06:34:24 AM Test Reason : tachy Blood Pressure : / mmHG Vent. Rate : 086 BPM Atrial Rate : 086 BPM P-R Int : 148 ms QRS Dur : 096 ms QT Int : 346 ms P-R-T Axes : 057 134 039 degrees QTc Int : 414 ms Normal sinus rhythm. Right axis deviation Abnormal ECG When compared with ECG of 19-APR-2019 10:12, Vent. rate has decreased BY 71 BPM QRS axis shifted right T wave inversion no longer evident in Inferior leads Nonspecific T wave abnormality no longer evident in Anterolateral leads Unconfirmed Result
[2019-09-23] MEDS: MYCOSTATIN POWDER TOP SCH ×2 (10:28→17:37)
[2019-09-23] MEDS: XOPENEX NEB INH PRN ×3 (11:38→21:21)
[2019-09-23] MEDS: COUMADIN PO SCH (17:35)
[2019-09-23] MEDS: OFIRMEV 1000 MG/ISOTONIC SOLN 1,000 MG/100 ML BOTTLE IV PRN (21:04)
[2019-09-24] MEDS: MERREM 1 GM in NS 50 ML IV SCH ×3 (03:57→20:35)
[2019-09-24] MEDS: ZYVOX 600 MG/D5W 600 MG/300 ML IVPB IV SCH ×2 (03:57→17:05)
--- NOTE | 2019-09-24 07:47 | PROGRESS NOTE ---
DATE: 09/24/2019 SUBJECTIVE: According to the mother, the patient has been okay. No more episodes of seizures. No other complaints noted. OBJECTIVE: Vital Signs: Temperature 97.3 degrees, heart rate 93, respiratory rate 12, blood pressure 114/92, O2 saturation 96% on 5 L, tracheostomy collar. General Examination: This is a chronically ill-appearing, 28-year-old, male with a past medical history of cerebral palsy, lying in bed, in no acute distress. Cardiovascular Examination: S1 and S2 heard. No murmurs, gallops, or rubs. Regular rate and rhythm. Respiratory Examination: Minimal rhonchi noted in both pulmonary gates. Patient is not using any accessory muscles or having work of breathing. Abdomen: Soft, nontender to palpation. The patient has a suprapubic catheter on site. Extremities: Contracted all over. Peripheral pulses present. Neurological Examination: The patient is awake. The patient has cerebral palsy. He is sleepy this morning. Laboratory Data: Pending at the time of my dictation. ASSESSMENT AND PLAN: 1. Klebsiella pneumoniae bacteremia/urinary tract infection. The patient is on Zyvox 600 mg intravenous every 12 hours plus meropenem 1 g intravenous every 8 hours. Those medications have been recommended from infectious disease. The culture from September 22 shows gram- negative rods so the peripherally inserted central catheter line has been removed because of the intravenous infection. Also, monitoring blood cultures tomorrow to document that we are eradicating the infection. At this point, we will continue with the same management. 2. Right lower lobe pneumonia. We will continue with the antibiotics as above. 3. Cerebral palsy with legal blindness. Aware. 4. Seizure disorder. I think the fact that he had more episodes of seizure here is because of the infection that may have lowered the seizure threshold. In any case, what I prefer to do is to continue with the current management including lamotrigine and Ativan as needed. 5. History of kidney stones. Mother requests to have some intravenous fluids for this patient to prevent formation of kidney stones. I think that is reasonable so we will place him on 75 mL per hour normal saline. 6. Gastroesophageal reflux disease. We will continue with Protonix. 7. Disposition. We will continue to monitor this patient closely. cc: Marlon Galvez MD
[2019-09-24] MEDS: KLONOPIN PO SCH ×2 (08:36→18:20)
[2019-09-24] MEDS: NEURONTIN PO SCH ×2 (08:37→18:17)
[2019-09-24] MEDS: SINGULAIR PO SCH (08:37)
[2019-09-24] MEDS: LIORESAL PO SCH ×3 (08:37→17:05)
[2019-09-24] MEDS: MYCOSTATIN POWDER TOP SCH ×2 (08:37→18:18)
[2019-09-24] MEDS: LACTULOSE PO SCH ×2 (08:37→18:17)
[2019-09-24] MEDS: LAMICTAL PO SCH ×2 (08:37→18:17)
[2019-09-24] MEDS: ALLEGRA PO SCH ×2 (08:37→18:17)
[2019-09-24] MEDS: COLACE PO SCH ×2 (08:37→18:17)
[2019-09-24] MEDS: NS 1,000 ML IV SCH ×2 (08:43→20:35)
[2019-09-24 09:17] LABS: AGAP 14; BUN 9 mg/dL (8-22); CALCIUM 9.6 mg/dL (8.8-10.2); CHLORIDE 101 mmol/L (98-107); COSMO 278; CREATININE 0.9 mg/dL (0.7-1.2); ESTIMATED GFR > 60; GLUCOSE 104 mg/dL (70-104); POTASSIUM 4.2 mmol/L (3.5-5.1); SODIUM 140 mmol/L (136-145); TCO2 25 mmol/L (25-35)
[2019-09-24] MEDS: XOPENEX NEB INH PRN ×3 (10:45→21:30)
[2019-09-24] MEDS: COUMADIN PO SCH (18:17)
[2019-09-25] MEDS: MERREM 1 GM in NS 50 ML IV SCH ×3 (03:19→20:46)
[2019-09-25] MEDS: ZYVOX 600 MG/D5W 600 MG/300 ML IVPB IV SCH ×2 (03:59→16:48)
[2019-09-25 06:30] LABS: BASO# 0.07 X1000 (0.0-0.2); BASO% 1.3 % (0.0-0.8); EOS# 0.18 X1000 (0.0-0.7); EOS% 3.4 % (0.0-10.0); HEMOGLOBIN 12.1 g/dL (14.0-18.0); LYMPH# 1.63 X1000 (1.2-3.4); LYMPH% 30.8 % (20.5-51.1); MCH 26.9 PG (27-31); MCHC 31.8 g/dL (33-37); MCV 84.6 FL (81-99); MONO# 0.33 X1000 (0.11-0.59); MONO% 6.2 % (1.7-9.3); NEUT# 3.08 X1000 (1.4-6.5); NEUT% 58.3 % (42.2-75.2); PLT 288 X1000 (130-400); RBC 4.49 XMIL (4.7-6.1); RDW 15.7 % (11.5-14.5); WBC 5.29 X1000 (4.8-10.8)
[2019-09-25 06:35] LABS: AGAP 13; BUN 8 mg/dL (8-22); CALCIUM 8.6 mg/dL (8.8-10.2); CHLORIDE 104 mmol/L (98-107); COSMO 278; CREATININE 0.9 mg/dL (0.7-1.2); ESTIMATED GFR > 60; GLUCOSE 111 mg/dL (70-104); POTASSIUM 4.1 mmol/L (3.5-5.1); SODIUM 140 mmol/L (136-145); TCO2 23 mmol/L (25-35)
[2019-09-25 06:47] LABS: BASO 1 % (0-1); EOS 2 % (1-10); LYMPHS 28 % (21-51); MONO 6 % (1-9); SEGS 63 % (42-75)
[2019-09-25] MEDS: KLONOPIN PO SCH ×2 (08:37→18:00)
[2019-09-25] MEDS: MYCOSTATIN POWDER TOP SCH ×2 (08:37→18:01)
[2019-09-25] MEDS: ALLEGRA PO SCH ×2 (08:38→18:00)
[2019-09-25] MEDS: LACTULOSE PO SCH ×2 (08:40→17:59)
[2019-09-25] MEDS: COLACE PO SCH ×2 (08:40→18:00)
[2019-09-25] MEDS: LAMICTAL PO SCH ×2 (08:40→17:59)
[2019-09-25] MEDS: LIORESAL PO SCH ×3 (08:40→18:00)
[2019-09-25] MEDS: SINGULAIR PO SCH (08:41)
[2019-09-25] MEDS: NEURONTIN PO SCH ×2 (08:41→18:00)
[2019-09-25] MEDS: NS 1,000 ML IV SCH ×2 (09:46→21:23)
[2019-09-25] MEDS: ATIVAN IV PRN (10:38)
--- NOTE | 2019-09-25 14:01 | INFECTIOUS DISEASE PROGRESS NO ---
DATE: 09/25/2019 PRESENT ILLNESS: The patient had initially a right lower lobe infiltrate, but on the most recent chest x-ray, that has cleared. The patient also has a Pseudomonas urinary tract infection and a Klebsiella bacteremia. Repeat blood cultures are pending. MEDICATIONS: The patient is receiving meropenem and Zyvox for 3 days now. PHYSICAL EXAMINATION: Vital Signs: Temperature is 98.1 degrees, pulse 91, respirations 15, blood pressure 109/54. General: This is a chronically ill-appearing and malnourished-appearing, young man. He does not appear to be in any acute distress. In fact, he is sleeping because he just recently had an injection of Ativan. HEENT: No drainage was noted from the nose or ears. Neck: The patient has a tracheostomy in place. Lungs: Clear to auscultation. Cardiovascular: Regular heart rate. Abdomen: Soft. The patient has a suprapubic catheter in place. The site is not erythematous or purulent. Neurologic: Currently, the patient is sleeping. IMAGING AND LABORATORY DATA: The most recent chest x-ray shows clear lung gates. Creatinine 0.9. GFR is greater than 60. CBC shows a white count of 5290, hemoglobin 12.1, and platelet count 288,000. A chest x-ray is clear. Blood and urine cultures are pending. Sputum culture and the urine culture previously grew Pseudomonas, and the patient, on admission, had Klebsiella bacteremia. PLAN: My plan is to continue with meropenem and Zyvox for a few more days. COMORBIDITIES: Cerebral palsy, seizure disorder, gastroesophageal reflux disease, recurrent infections, the patient is legally blind and nonverbal. cc: Shilo Bush MD
[2019-09-25] MEDS: XOPENEX NEB INH PRN (15:32)
--- NOTE | 2019-09-25 17:19 | PROGRESS NOTE ---
DATE: 09/25/2019 SUBJECTIVE: The patient has not had any major issues. OBJECTIVE: Vital signs: Temperature 97.9 degrees, heart rate 99, respiratory rate 13, temperature 110/77. Cardiovascular: Regular rate and rhythm. Pulmonary: Bilateral breath sounds clear to auscultation. GI: Soft, nontender, nondistended. Bowel sounds are positive. LABORATORY DATA: White count 5, hemoglobin and hematocrit 12 and 38, platelets of 288,000. PROBLEM LIST: 1. Klebsiella pneumoniae bacteremia urinary tract infection. Patient is on Merrem for that. The Zyvox is not going to cover that, and we are going to continue antibiotics per their recommendations at least another 2 to 3 days. Obviously we want the repeat cultures to be negative. He had blood cultures drawn today that are no growth so far and I guess a repeat urine too. 2. Right lower lobe pneumonia. We will continue antibiotics. He is also on Zyvox. 3. Seizure disorder, seems to be stable. We will continue medications. DISPOSITION: Again pending negative blood cultures and at the discretion of ID, hopefully can go home soon. cc: Zander Murillo MD
[2019-09-25] MEDS: COUMADIN PO SCH (18:02)
[2019-09-26] MEDS: MERREM 1 GM in NS 50 ML IV SCH ×3 (03:58→20:07)
[2019-09-26] MEDS: ZYVOX 600 MG/D5W 600 MG/300 ML IVPB IV SCH ×2 (04:38→17:25)
[2019-09-26 06:08] LABS: AGAP 11; BUN 8 mg/dL (8-22); CALCIUM 8.7 mg/dL (8.8-10.2); CHLORIDE 106 mmol/L (98-107); COSMO 282; CREATININE 0.9 mg/dL (0.7-1.2); ESTIMATED GFR > 60; GLUCOSE 101 mg/dL (70-104); POTASSIUM 4.2 mmol/L (3.5-5.1); SODIUM 142 mmol/L (136-145); TCO2 25 mmol/L (25-35)
[2019-09-26 06:14] LABS: BASO# 0.05 X1000 (0.0-0.2); BASO% 0.8 % (0.0-0.8); EOS% 3.2 % (0.0-10.0); HEMATOCRIT 36.8 % (42.0-52.0); HEMOGLOBIN 11.6 g/dL (14.0-18.0); LYMPH# 1.82 X1000 (1.2-3.4); LYMPH% 28.7 % (20.5-51.1); MCH 26.7 PG (27-31); MCHC 31.5 g/dL (33-37); MCV 84.6 FL (81-99); MONO# 0.31 X1000 (0.11-0.59); MONO% 4.9 % (1.7-9.3); MPV 8.9 FL (7.4-10.4); NEUT# 3.96 X1000 (1.4-6.5); NEUT% 62.4 % (42.2-75.2); PLT 300 X1000 (130-400); RBC 4.35 XMIL (4.7-6.1); RDW 15.1 % (11.5-14.5); WBC 6.34 X1000 (4.8-10.8)
[2019-09-26] MEDS: LAMICTAL PO SCH ×2 (08:55→17:26)
[2019-09-26] MEDS: NEURONTIN PO SCH ×2 (08:55→17:26)
[2019-09-26] MEDS: LACTULOSE PO SCH ×2 (08:55→17:26)
[2019-09-26] MEDS: ALLEGRA PO SCH ×2 (08:55→17:25)
[2019-09-26] MEDS: LIORESAL PO SCH ×3 (08:55→17:26)
[2019-09-26] MEDS: COLACE PO SCH ×2 (08:55→17:25)
[2019-09-26] MEDS: SINGULAIR PO SCH (08:55)
[2019-09-26] MEDS: KLONOPIN PO SCH ×2 (08:57→17:25)
[2019-09-26] MEDS: MYCOSTATIN POWDER TOP SCH ×2 (08:58→17:26)
--- NOTE | 2019-09-26 10:46 | PROGRESS NOTE ---
DATE: 09/26/2019 SUBJECTIVE: The patient has been okay, no more episodes of seizure or fever. No other issues noted as per nursing staff overnight. OBJECTIVE: Vital Signs: Temperature 99.6 degrees, heart rate 97, respiratory rate 16, blood pressure 150/88, O2 saturation 98% on tracheostomy collar. General Examination: This is a chronically ill-appearing 28-year-old male with history of cerebral palsy lying in bed in no acute distress. Cardiovascular: S1, S2 heard. No murmurs, gallops, or rubs. Regular rate and rhythm. Respiratory: Rhonchi is noted in both pulmonary gates. Patient not using any accessory muscles or having work of breathing. Abdomen: Soft, nontender to palpation. The patient has a suprapubic catheter on site. Extremities: Contracted all over. Peripheral pulses present. Neurological: Patient is awake, has cerebral palsy. Nonverbal this morning. He is a little bit more sleepy this morning. LABORATORY DATA: Reviewed. ASSESSMENT AND PLAN: 1. Klebsiella pneumonia/Pseudomonas urinary tract infection. We have checked blood culture and those are still pending. At this point as per ID, will continue with Zyvox and meropenem. I think if tomorrow blood cultures are negative, we can place a PICC line. 2. Right lower lobe pneumonia. Will continue with antibiotics as above. 3. Cerebral palsy with legal blindness. Aware. 4. Seizure disorder. No more seizures since he is in the hospital. Will continue with IV fluids and Ativan p.r.n. 5. History of kidney stones. Will continue with IV fluids. 6. Gastroesophageal reflux disease. Will continue with Protonix. 7. Disposition. Patient's blood cultures are negative so far today. If tomorrow those are okay, we can place a PICC line and then set up IV antibiotics according to ID recommendation. Will continue with the same management. cc: Marlon Galvez MD [facility]PITALChristine
[2019-09-26 11:10] LABS: INR 1.2; PROTIME 15.3 Seconds (11.0-16.0)
[2019-09-26] MEDS: NS 1,000 ML IV SCH (12:26)
[2019-09-26] MEDS ORDERED: NS 250 ML ONE (13:50)
[2019-09-26] MEDS ORDERED: NS 500 ML ONE (14:39)
--- NOTE | 2019-09-26 15:26 | INFECTIOUS DISEASE PROGRESS NO ---
DATE: 09/26/2019 ADDENDUM: The patient has a Pseudomonas pneumonia, a Pseudomonas urinary tract infection, and Klebsiella bacteremia. As mentioned earlier, the patient is going home on meropenem 1 g IV every 8 hours for a total of 12 days and this is going to be followed by tobramycin 80 mg IV daily indefinitely. cc: Shilo Bush MD
--- NOTE | 2019-09-26 15:28 | INFECTIOUS DISEASE PROGRESS NO ---
DATE: 09/26/2019 The patient has a pulmonary infection, bacteremia and urinary tract infection. He is going home on meropenem meropenem 1 g IV every 8 hours for 10 days to be followed by tobramycin 80 mg IV daily on a chronic basis. [facility] has been consulted to supply the antibiotic. I put in a consult for the patient to have a PICC placed. cc: MD EMELINA Melendez
[2019-09-26] MEDS: COUMADIN PO SCH (17:32)
[2019-09-27] MEDS: NS 1,000 ML IV SCH (03:17)
[2019-09-27] MEDS: MERREM 1 GM in NS 50 ML IV SCH ×2 (03:17→12:01)
[2019-09-27] MEDS: ZYVOX 600 MG/D5W 600 MG/300 ML IVPB IV SCH (03:55)
[2019-09-27 07:18] LABS: BASO# 0.05 X1000 (0.0-0.2); BASO% 0.8 % (0.0-0.8); EOS# 0.23 X1000 (0.0-0.7); EOS% 3.9 % (0.0-10.0); HEMATOCRIT 37.7 % (42.0-52.0); LYMPH# 2.23 X1000 (1.2-3.4); LYMPH% 37.5 % (20.5-51.1); MCH 26.8 PG (27-31); MCHC 31.8 g/dL (33-37); MCV 84.3 FL (81-99); MONO# 0.42 X1000 (0.11-0.59); MONO% 7.1 % (1.7-9.3); MPV 8.9 FL (7.4-10.4); NEUT# 3.01 X1000 (1.4-6.5); NEUT% 50.7 % (42.2-75.2); PLT 341 X1000 (130-400); RBC 4.47 XMIL (4.7-6.1); RDW 15.1 % (11.5-14.5); WBC 5.94 X1000 (4.8-10.8)
--- NOTE | 2019-09-27 07:38 | Diag Imaging Result Doc PS360 ---
EXAM: CHEST-PORTABLE INDICATION: pre op TECHNIQUE: One view COMPARISON: 09/23/2019 FINDINGS: The tracheostomy tube is in stable position. Lung volumes remain somewhat low. No new consolidation is identified. The lungs are grossly clear. There is no discrete pleural fluid collection or pneumothorax. The cardiomediastinal silhouette and central vasculature are grossly unremarkable. IMPRESSION: Stable chest with no definite acute pathology. Electronically signed by Andres Erwin 09/27/2019 7:36 AM
[2019-09-27] MEDS: LAMICTAL PO SCH (08:19)
[2019-09-27] MEDS: KLONOPIN PO SCH (08:20)
[2019-09-27] MEDS: ATIVAN IV PRN (08:22)
[2019-09-27] MEDS ORDERED: DIPRIVAN 1% ONE (09:49)
[2019-09-27] MEDS ORDERED: MARCAINE 0.25% PF/EPI 1:200,000 ONE (10:10)
[2019-09-27] MEDS ORDERED: XYLOCAINE 1% ONE (10:11)
[2019-09-27] MEDS ORDERED: NS 250 ML ONE (10:11)
[2019-09-27] MEDS ORDERED: VERSED ONE (10:16)
[2019-09-27] MEDS ORDERED: DECADRON ONE (10:55)
[2019-09-27] MEDS ORDERED: ZOFRAN ONE (10:55)
--- NOTE | 2019-09-27 11:30 | Diag Imaging Result Doc PS360 ---
EXAM: CHEST-PORTABLE 09/27/2019 HISTORY: Groshong Cath TECHNIQUE: AP portable at 1123 COMMENT: There is a Groshong catheter on the left with its tip in the right atrium. There is a massive amount of stool in the colon with gas throughout the visualized small bowel. The lungs appear to be clear and unchanged since 05. IMPRESSION: Severe constipation. Electronically signed by Dio Patel 09/27/2019 11:28 AM
[2019-09-27 11:57] VITALS: BP 115/72
--- NOTE | 2019-09-27 12:19 | DISCHARGE SUMMARY ---
ADMISSION DATE: 09/22/2019 DISCHARGE DATE: 09/26/2019 DISCHARGE DIAGNOSES: 1. Klebsiella bacteremia. 2. Pseudomonas urinary tract infection. 3. Right lower lobe pneumonia. 4. 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 5. Seizure disorder. 6. Gastroesophageal reflux disease. CONSULTATIONS: Dr. Shilo Bush from Infectious Disease. PROCEDURES: X-ray done on admission showed a small right lower lobe pneumonia. HOSPITAL COURSE: This is a 28-year-old male with past medical history of cerebral palsy, who was admitted to the emergency department because he was seen in Dr. Shilo Bush' office and he was found out to have a temperature of 105 degrees and 1 blood culture that has been checked a few days back showed gram-negative rods. Patient admitted to the hospital. The culture from Dr. Bush' office and our culture shows Klebsiella pneumoniae and the urine culture shows Pseudomonas UTI. We have repeated another set of cultures yesterday which are negative. So at this point, the PICC line this patient had has been removed at admission and then we are planning to replace that PICC line today. Patient is going to be discharged with IV antibiotics directed by Dr. Shilo Bush. Clinically, this patient is not having any more fever. He had just 1 episode of seizures that we attributes to this acute disease that this patient has, but since then, he is completely stable. The patient is going to be discharged in stable condition. DISCHARGE PHYSICAL EXAMINATION: Vital signs: Temperature 99.2 degrees, heart rate 105, respiratory 16 blood pressure 110/87, O2 saturation 99% on tracheostomy collar. General: This is a 28-year-old male with past medical history of cerebral palsy, lying in bed, in no acute distress. Cardiovascular: S1, S2 heard. No murmurs, gallops, or rubs. Regular rate and rhythm. Respiratory: Clear bilaterally to auscultation. No work of breathing or using accessory muscles. Abdomen: Soft, nontender to palpation. Bowel sounds present. No organomegaly. There is a suprapubic catheter placed. Extremities: All of them are contracted. Neurological: Patient does not follow any commands. He is nonverbal. He has cerebral palsy. DISCHARGE DISPOSITION: Patient is going home with home health. DISCHARGE MEDICATIONS: Antibiotics are going to be managed by Dr. Shilo Bush. We are not going to make any changes to his current list of medications. cc: Marlon Galvez MD
--- NOTE | 2019-09-27 19:42 | OPERATIVE NOTE ---
PROCEDURE DATE: 09/27/2019 PREOPERATIVE DIAGNOSES: 1. Cerebral palsy. 2. Sepsis. 3. Seizure disorder. 4. Lack of IV access. POSTOPERATIVE DIAGNOSES: 1. Cerebral palsy. 2. Sepsis. 3. Seizure disorder. 4. Lack of IV access SURGEON: Dr. Joseluis Shrestha. ANESTHESIA: General. PROCEDURE: Left subclavian Groshong catheter. DESCRIPTION OF PROCEDURE: The patient was brought to the operating room. After satisfactory induction of IV and general anesthesia through his tracheostomy, his left and right chest were prepped and draped in the appropriate manner. Initial attempts were on the left, and the subclavicular space was infiltrated with Marcaine and Xylocaine with epinephrine. A transverse incision was made of about 10 mm, and through the base of this incision, the subclavian vein was cannulated. A guidewire was introduced into the right atrial area of the heart. There was no ectopy and no pneumothorax. The subcutaneous tunnel was performed just medial to the nipple up to this incision, again after infiltration with Marcaine and Xylocaine with epinephrine. The Groshong was brought through the tunnel, disconnected from the tunneler, flushed with heparinized saline, and threaded down through a 9-Faroese introducer to the right atrial superior vena caval junction. Again, there was no pneumothorax. The system was flushed. The exit site was anchored with 0 silk. The upper incision was closed with 3-0 Vicryl and 4-0 Vicryl subcuticular. Steri- Strips, Telfa, and OpSite were applied at the upper incision and a split gauze at the lower incision. The patient was subsequently awakened in the operating room and transferred to recovery. ESTIMATED BLOOD LOSS: Around 5 mL. cc: Joseluis Shrestha MD
--- NOTE | 2019-09-28 09:20 | DISCHARGE SUMMARY ---
ADMISSION DATE: 09/22/2019 DISCHARGE DATE: 09/27/2019 ADMISSION DIAGNOSES: 1. Klebsiella urinary tract infection with associated bacteremia as well as gram-negative rods growing from the sputum. 2. Right lower lobe pneumonia. 3. Cerebral palsy with legal blindness. 4. Seizure disorder. 5. Gastroesophageal reflux disease. DISCHARGE DIAGNOSES: 1. Klebsiella pneumoniae Pseudomonas urinary tract infection. 2. Right lower lobe pneumonia. 3. Cerebral palsy with legal blindness. 4. Seizure disorder. 5. Kidney stone history. 6. Gastroesophageal reflux disease. PHYSICIAN CONSULTS: 1. Dr. Joseluis Shrestha for central line placement. 2. Dr. Shilo Bush. SURGERIES AND PROCEDURES: Line placement by Dr. Shrestha. HOSPITAL COURSE: On 09/22/2019, Mr. Bertin Ruiz, a 28-year-old male with a medical history of cerebral palsy, blindness, seizure disorder, frequent UTIs and suprapubic catheter, tracheostomy, right IJ Groshong catheter removal, is mostly being treated for aspiration pneumonia and bacteremia as well as Pseudomonas urinary tract infection. Apparently, his mother called Dr. Bush on Wednesday before being admitted to report fever and seizures. Came to the emergency department where blood cultures were drawn as well as urine and sputum at home and was started on meropenem through a PICC line. When she called Dr. Bush's office on the day of admission, his temperature had gone up to 105 and was directed to come to the emergency department. He had continued treatment for Klebsiella UTI as well as associated bacteremia and gram-negative rods that was growing in his sputum. PICC line was removed and a peripheral IV was placed. He was started on meropenem and daptomycin, and he was treated per sepsis protocol immediately. X-ray was revealing of a small right lower lobe pneumonia. Micro while he was here on 09/22/2019, he had 1 blood culture that showed Klebsiella pneumoniae resistant to ampicillin. Urine cultures showed Pseudomonas aeruginosa that was resistant to amikacin, cefepime, gentamicin, levofloxacin and had indeterminate resistance to ceftazidime and tobramycin. It was only sensitive to Zosyn. A sputum culture also came back with Pseudomonas aeruginosa, but it was resistant to cefepime, ceftazidime, Levaquin with indeterminate resistance to Zosyn, had sensitivities to amikacin, gentamicin, and tobramycin. Repeat cultures on the , negative in the blood, normal urine, and then there has been another urine that was sent on the that is pending. So, eventually was just on meropenem and Zyvox once cultures came back and then switched to meropenem and tobramycin for discharge. There was attempt for PICC line placement, which was unsuccessful, so Dr. Shrestha was consulted for line placement for IV antibiotics at home. Plan is for meropenem 1 g IV every 8 hours for total of 12 days and tobramycin 80 mg IV daily indefinitely forever. DISCHARGE VITAL SIGNS: Temperature 97.3 degrees, heart rate 84, respiratory rate 14, blood pressure 131/91, O2 saturation 100% on room air. DISCHARGE LABORATORY DATA: White blood cells 5000, hemoglobin 12, hematocrit 37, platelet count 341,000. Sodium 142, potassium 4.2, BUN 8, creatinine 0.9, glucose 101, calcium 8.7. IMAGING: On 09/22/2019, chest x-ray: Small right lower lobe pneumonia. On 09/23/2019, chest x- ray: Mildly shallow inspiration, no evidence of acute disease. On 09/27/2019, chest x-ray: Stable chest with no definite acute pathology and then it was repeated It showed severe constipation, but it showed that there is a Groshong catheter on the left with the tip in the right atrium. EKG is normal sinus rhythm, rate 86. DISCHARGE MEDICATIONS: 1. Meropenem 1 g IV every 8 hours for a total of 12 days. 2. Tobramycin 80 mg IV daily indefinitely. 3. Coumadin 1 mg p.o. nightly. 4. Klonopin 0.5 mg p.o. nightly. 5. Lamictal 150 mg p.o. nightly. 6. Neurontin 300 mg p.o. nightly. 7. Jessie 60 mg p.o. twice daily. 8. Baclofen 40 mg p.o. t.i.d. 9. Colace 100 mg p.o. twice daily. 10. Klonopin 0.25 mg p.o. daily. 11. Lamictal 100 mg p.o. daily. 12. Neurontin 100 mg p.o. daily. 13. Singulair 10 mg p.o. daily. 14. Lactulose 30 mL p.o. twice daily. 15. Mycostatin powder topically in the groin area twice daily. 16. Xopenex nebs every 6 hours p.r.n. DISCHARGE DIET: Regular diet. DISCHARGE ACTIVITY: As tolerated. DISCHARGE PHYSICIAN/FOLLOWUPS: 1. Dr. Shilo Bush. 2. Dr. Sheffield. DISCHARGE INSTRUCTIONS: If your condition changes, contact physician and/or return to the emergency department. Changes may include, but are not limited to shortness of breath, increased fatigue, excessive bleeding, unexplained weight loss or gain, unmanageable pain, signs or symptoms of infection. Notify MD for any of the following: Pain or difficulty urinating, blood or pus in the urine, fever greater than 101 or chills, shortness of breath or chest pain, urine that is bloody, cloudy or dark, confusion, blood pressures that remain outside the desired parameters, rapid heart rate. Keep all followup appointments. Take all prescribed medications as directed, to be sure to complete antibiotics. Return to emergency department immediately for any new or worsening symptoms. Drink enough water to keep urine clear to pale yellow. DISCHARGE DISPOSITION: Home. Dictated by MOIRA Wallace for Marlon Galvez MD Addendum: Patient seen and examined by myself. Agree with MOIRA note. It reflects my assessment and plan. Patient is being discharged in stable condition back home with IV antibiotics directed by Dr. Bush. cc: MOIRA Wallace MD [facility]
== END 2019-09-27 13:03 | disposition home health service (06) | DRG 871 ==
LOC: ED 10:00 → SUATTDRO 10:01 → 2N 10:01
PROVIDERS: ATTEND Internal Medicine